=== PATIENT | female | born 1945 | race Caucasian/White ===

== ENCOUNTER → 2017-03-25 | Outpatient (CLI) | payer OTHER, MEDICARE ==
[~2017-03-25] MED LIST: ACET-1311 PO; AMPH20CA3 PO; BUSP15TA70 PO; CALC500C3; CHOL100010 PO; METO50TA16 PO; MULTCHW PO; NAPR1TAB9 PO; OXYC-88 PO; ZNTT/150 PO
--- NOTE | 2017-03-25 13:54 | MAMMOGRAPHY REPORT ---
BILATERAL DIGITAL DIAGNOSTIC MAMMOGRAM TOMOSYNTHESIS WITH CAD AND TARGETED RIGHT ULTRASOUND: 03/25/2017 CLINICAL HISTORY: History of right breast cancer status post treatment, who presents for annual bilat eral mammography. She reports that she feels intermittent sensitivity/discomfort at the site of her seroma in the right breast. TECHNIQUE: Breast tomosynthesis in addition to standard 2D mammography was performed. Current study was also evaluated with a Computer Aided Detection (CAD) system. Bilateral CC and MLO 2-D and tomosy nthesis images were obtained. COMPARISON: Comparison is made to exams dated: 03/11/2015 ultrasound, 03/11/2015 mammogram, 03/08/2014 mammogram, 02/27/2013 mammogram, 02/25/2012 mammogram, and 02/17/2011 mammogram - [facility] enter. BREAST COMPOSITION: There are scattered areas of fibroglandular density in both breasts. FINDINGS: There are no suspicious masses, calcifications, or areas of nonsurgical architectural disto rtion noted in either breast. There has been no significant interval change compared to prior exams. There are stable post surgical changes in the right central breast from prior lumpectomy, including surgical clips, architectural distortion, coarse benign dystrophic calcifications, and an oval 2.8 c m benign-appearing mass at the lumpectomy bed which is stable dating back to the 2007 exam and is con sistent with a benign chronic postoperative hematoma/seroma. A linear scar marker denotes a scar on the right breast. An asymmetry seen within the left superior breast middle depth on the MLO view is stable dating back to at least the 2008 exam. Other scattered bilateral benign-appearing calcificati ons are not significantly changed. Targeted ultrasound was performed of the area of the intermittent sensitivity pointed out by the sunita ent, in the right breast at her surgical bed at approximately 7 to 8:00, 2 cm from the nipple. Again noted is an oval mixed echogenicity hypoechoic mass which measures 2.3 x 1.6 x 1.7 cm. This corresp onds with the stable mammographic mass which is unchanged dating back to 2007, and is consistent with a chronic postoperative hematoma/seroma. No suspicious masses or other suspicious sonographic abnor malities are evident. IMPRESSION: ACR BI-RADS CATEGORY 2: BENIGN, TARGETED ULTRASOUND ACR BI-RADS CATEGORY 2: BENIGN There is no mammographic evidence of malignancy in either breast. No suspicious findings seen in the region of intermittent sensitivity at the surgical bed in her right breast. The 2.8 cm chronic post operative hematoma/seroma at the surgical bed is unchanged. There is no mammographic or targeted sonographic evidence of malignancy. A 1 year screening mammogram is recommended. The patient has been verbally notified of the results. Approximately 10% of breast cancers are not detected with mammography. A negative mammographic report should not delay biopsy if a clinically suggestive mass is present. Pushpa Perera M.D. ah/:03/25/2017 12:05:30 Associate Professor Of Automation: Mackenzie BUENROSTRO(Lora)(Elina), [facility] letter sent: Normal 1/2 BI-RADS Code: ACR BI-RADS Category 2: Benign Ultrasound BI-RADS: ACR BI-RADS Category 2: Benign
== END | disposition home or self-care (01) ==
LOC: C.MAMM 11:10
PROVIDERS: ATTEND Family Medicine
DX: Z12.31 Encounter for screening mammogram for malignant neoplasm of breast (principal); Z85.3 Personal history of malignant neoplasm of breast; L76.82 Other postprocedural complications of skin and subcutaneous tissue

== ENCOUNTER 2024-05-15 14:06 | Inpatient (IN) ==
[2024-05-15] MEDS: METOPROLOL TARTRATE 1 MG/ML VIAL IV STA (14:51)
[2024-05-15] MEDS: METOPROLOL TARTRATE 1 MG/ML VIAL IV PRN (15:03)
--- NOTE | 2024-05-15 15:03 | Emergency Department Note ---
Impression & Plan Atrial fibrillation with rapid ventricular response, Acute dyspnea, Acute exacerbation of CHF (congestive heart failure), Pulmonary edema, Anemia ED Provider Note HISTORY OF PRESENT ILLNESS: Patient is an 78-year-old female presenting with bilateral lower extremity edema and shortness of breath. Patient reports that she has had a chronic cough for the last 3 months. She states that she is on Eliquis normally for history of A- fib. However, she states that she stopped taking her Eliquis 2 to 3 weeks ago secondary to "thinking I had an ulcer as I had some epigastric pain at nighttime." She denies any DVT or PE history. Denies any history of cardiac stents. She states that her bilateral lower extremities have been getting progressively more swollen over the last 2 to 3 weeks. She denies any chest pain. Reports feeling short of breath with exertion and with laying flat. She is not on any Lasix or diuretic medications. She was at [facility] today and they referred her to the emergency department given her symptoms. ROS: as above PHYSICAL EXAM: Constitutional: Patient appears in no acute distress. HENT: Head: Normocephalic and atraumatic. Eyes: EOMI, PERRL Mouth/Throat: Mucous membranes moist. Neck: Trachea midline. Neck supple. Cardiovascular: Tachycardic with irregularly irregular rhythm. No murmurs, rubs or gallops. Intact distal pulses. Pulmonary/Chest: No respiratory distress. Breath sounds clear and equal bilaterally. No wheezes or rales. Abdominal: Abdomen soft, no tenderness, rebound or guarding. Rectal: Chaperoned by nursing staff. No palpable masses or hemorrhoids. No jerod melena or blood on glove. Hemoccult negative. Musculoskeletal: No tenderness or deformity noted. +3 pitting edema of bilateral lower extremities extending to mid-thigh Skin: Warm and dry. No rash, erythema, pallor or cyanosis Psychiatric: Appropriate mood and affect for situation. Neurological: Alert and keenly responsive. CN II-XII grossly intact, moving all extremities equally and fully. MDM: - Vitals signs showed hypertension and tachycardia. - History obtained via patient. History as above. - Chronic conditions affecting care: aortic stenosis; anemia; Afib - Differential diagnoses include, but are not limited to: ACS; PE; pneumonia; CHF exacerbation; viral syndrome; electrolyte abnormality - Order placed for continuous cardiac monitoring. At this time, monitor showed rate of 122 bpm with irregular rhythm, per my interpretation. - External medical records reviewed. Echocardiogram dated 11/09/2023 was reviewed. Patient had an EF of 60 to 64% at that time. - EKG interpreted by myself showed atrial fibrillation. Rate tachycardic at 140 bpm. QT 286. No acute ischemic changes. - Given patient's obvious fluid overload on physical examination, she was given 5 mg of IV Lopressor for some rate control. Her heart rate went from the 150s to the 120s. As needed 5 mg Lopressor was ordered for further rate control. - Laboratory workup interpreted by myself showed normal WBC; anemia (Hgb 7.9); normal electrolytes; elevated total bilirubin (2.5); normal AST/ALT; elevated BNP (350); normal troponin - CXR shows pulmonary edema and bilateral pleural effusions, per my interpretation. - Patient given an additional 5 mg IV lopressor with improvement in HR down to low 100s. - Given 80 mg IV lasix for diuresis. - CT PE negative for PE, but noted to have large bilateral pleural effusions - Discussion was had with behavioral health case manager about patient's case and need for admission - Hospitalist consulted for admission - Patient admitted to [facility] for further evaluation and management. I have personally spent 42 minutes of critical care time in the direct management of this patient. This includes bedside care, interpretation of diagnostic studies, and testing, discussion with consultants, patient, and family members, and other required patient management activities. This 42 minutes is in excess of all separately billable procedures. ASSESSMENT AND PLAN: Diagnosis: acute dyspnea; Afib with RVR; acute exacerbation of CHF; anemia; pulmonary edema Plan: Admit Past Med/Surg History Problem List (Updated 05/15/24 @ 16:54 by Kika Toney MD) Anemia (Acute) Pulmonary edema (Acute) Acute exacerbation of CHF (congestive heart failure) (Acute) Acute dyspnea (Acute) Atrial fibrillation with rapid ventricular response (Acute) Atrial fibrillation Mitral regurgitation Anemia ADD (attention deficit disorder) Lumbar radiculopathy (Chronic) Lumbar stenosis with neurogenic claudication Aortic regurgitation Aortic stenosis B12 deficiency Vitamin D deficiency Depression with anxiety Fatigue Dyspnea Idiopathic progressive polyneuropathy (Acute) Chronic low back pain (Acute) Medical History Mitral regurgitation Aortic stenosis Anemia ADD (attention deficit disorder) Lumbar radiculopathy Lumbar stenosis with neurogenic claudication Breast cancer (~05/2003) Surgical History (Updated 05/25/19 @ 14:31 by Nancy Michel) Status post tubal ligation S/P tonsillectomy S/P mastectomy Status post repair of nerve Family History (Updated 05/25/19 @ 14:22 by Nancy Michel) Mother Dementia Father Parkinson disease Social History (Updated 05/25/19 @ 14:30 by Nancy Michel) Smoking Status: Never smoker Hx Alcohol Use: Yes Preferred Language: Ghanaian Feels Safe at Home: No Allergies Allergies Allergy/AdvReac Type Severity Reaction Status Date / Time nickel Allergy Intermediate contact Verified 05/15/24 15:31 dermatitis adhesive Allergy Mild skin Verified 05/15/24 15:31 irritation alendronate sodium AdvReac Intermediate myalgias Verified 05/15/24 15:31 Home Meds Home Medications Medication Instructions Recorded Confirmed cholecalciferol (vitamin D3) 25 1,000 unit PO DAILY 10/03/19 05/15/24 mcg (1,000 unit) tablet metoprolol tartrate 100 mg tablet 100 mg PO BID 02/05/21 05/15/24 calcium carbonate (Tums) 200 mg PO BID PRN 03/30/22 05/15/24 HEARTBURN/INDIGESTION denosumab 60 mg/mL subcutaneous 60 mg subcut Q6MO 01/13/24 05/15/24 syringe (Prolia) acetaminophen 500 mg tablet 500 - 1,000 mg PO Q6H PRN Pain 05/15/24 05/15/24 (Tylenol Extra Strength) albuterol sulfate 90 mcg/actuation 2 puff inhalation Q4H PRN 05/15/24 05/15/24 aerosol inhaler WHEEZING, COUGH, SHORT OF BREATH alpha lipoic acid 600 mg capsule 600 mg PO DAILY 05/15/24 05/15/24 duloxetine 20 mg capsule,delayed 20 mg PO QAM 05/15/24 05/15/24 release [id number] tablet 1 tab PO DAILY 05/15/24 05/15/24 Previous Rx's Medication Instructions Recorded apixaban 5 mg tablet (Eliquis) 5 mg PO BID #60 tabs 01/13/24 Results & Data (ED) Vital Signs Vital Signs - 24 hr 05/15/24 14:10 05/15/24 14:39 05/15/24 14:51 Temperature 36.5 C Temperature Source Temporal Artery Scan Pulse Rate 148 H 155 H 144 H Pulse Rate from SpO2 Sensor Respiratory Rate 18 Respiratory Effort / Characteristics Non-Labored Spontaneous Respiratory Depth Normal Blood Pressure 131/84 148/119 H Blood Pressure Mean 99 Blood Pressure Position Sitting Pulse Oximetry 95 Oxygen Delivery Method Room Air Sepsis Recent Fever Within 48 Hours No Sepsis New/Unexplained Change in Mental Status No Sepsis Action Taken by Nursing No Action Required 05/15/24 14:53 05/15/24 14:57 05/15/24 15:03 Temperature Temperature Source Pulse Rate 129 H 138 H 114 H Pulse Rate from SpO2 Sensor Respiratory Rate 18 20 Respiratory Effort / Characteristics Respiratory Depth Blood Pressure 135/104 H 135/104 H 126/107 H Blood Pressure Mean 109 114 Blood Pressure Position Pulse Oximetry 96 Oxygen Delivery Method Sepsis Recent Fever Within 48 Hours Sepsis New/Unexplained Change in Mental Status Sepsis Action Taken by Nursing 05/15/24 15:03 05/15/24 15:18 05/15/24 15:21 Temperature Temperature Source Pulse Rate 129 H 102 H 106 H Pulse Rate from SpO2 Sensor Respiratory Rate 20 Respiratory Effort / Characteristics Respiratory Depth Blood Pressure 126/107 H 120/86 120/86 Blood Pressure Mean 113 Blood Pressure Position Pulse Oximetry Oxygen Delivery Method Sepsis Recent Fever Within 48 Hours Sepsis New/Unexplained Change in Mental Status Sepsis Action Taken by Nursing 05/15/24 15:21 05/15/24 16:09 05/15/24 16:15 Temperature Temperature Source Pulse Rate 102 H 123 H 114 H Pulse Rate from SpO2 Sensor 112 H 120 H 120 H Respiratory Rate 24 24 30 H Respiratory Effort / Characteristics Respiratory Depth Blood Pressure 120/86 122/76 113/82 Blood Pressure Mean 97 91 92 Blood Pressure Position Pulse Oximetry 97 98 97 Oxygen Delivery Method Room Air Sepsis Recent Fever Within 48 Hours Sepsis New/Unexplained Change in Mental Status Sepsis Action Taken by Nursing 05/15/24 16:30 Temperature Temperature Source Pulse Rate 101 H Pulse Rate from SpO2 Sensor 109 H Respiratory Rate 26 H Respiratory Effort / Characteristics Respiratory Depth Blood Pressure 101/81 Blood Pressure Mean 87 Blood Pressure Position Pulse Oximetry 96 Oxygen Delivery Method Room Air Sepsis Recent Fever Within 48 Hours Sepsis New/Unexplained Change in Mental Status Sepsis Action Taken by Nursing Laboratory Data 05/15/24 14:33 05/15/24 14:33 Lab Results 05/15/24 Range/Units 14:33 WBC 9.48 (4.8-10.8) K/ul RBC 2.98 L (4.20-5.40) M/uL Hgb 7.9 L (12.0-16.0) g/dl Hct 24.9 L (37.0-47.0) % MCV 83.6 (80.0-100.0) fL MCH 26.5 (25.0-34.0) pg MCHC 31.7 L (32.0-36.0) g/dL RDW Coeff of Karen 30.9 H (11.5-14.5) % Plt Count 354 (130-400) K/uL Absolute Nucleated RBC 0.73 H (0.00-0.12) K/uL Nucleated RBC % (auto) 7.7 % Neutrophils % (Manual) 71 % Lymphocytes % (Manual) 12 % Monocytes % (Manual) 5 % Eosinophils % (Manual) 5 % Basophils % (Manual) 1 % Myelocytes % (Man) 1 % Blast Cells % (Manual) 5 % Neutrophils # (Manual) 6.73 H (1.40-6.50) K/uL Total Absolute Neuts 6.73 H (1.4-6.5) K/uL Lymphocytes # (Manual) 1.14 L (1.2-3.4) K/uL Total Abs Lymphocytes 1.14 L (1.2-3.4) K/uL Monocytes # (Manual) 0.47 (0.11-0.59) K/uL Eosinophils # (Manual) 0.47 (0-0.50) K/uL Basophils # (Manual) 0.09 (0-0.2) K/uL Myelocytes # (Manual) 0.09 H (0-0) K/uL Blast Cells # (Man) 0.47 H (0-0) K/uL Hyposegmented Neuts 2+ Hypogranular Neuts 2+ Hypochromasia Present Poikilocytosis Present Anisocytosis Present Pappenheimer Bodies Occasional Ovalocytes 1+ Acanthocytes (Spur) 2+ PT 16.0 H (9.0-12.0) Seconds INR 1.5 H (0.9-1.1) APTT 30 (21-31) Seconds PTT Ratio 1.1 Sodium 133 L (136-145) mmol/L Potassium 3.7 (3.5-5.1) mmol/L Chloride 98 (98-107) mmol/L Carbon Dioxide 26 (21-32) mmol/L Anion Gap 9 (3-11) BUN 21 (6-23) mg/dl Creatinine 0.94 (0.6-1.2) mg/dl Est Cr Clr Drug Dosing Not Reportable Est GFR ( Amer) 66.4 ml/min Est GFR (Non-Af Amer) 57.3 ml/min BUN/Creatinine Ratio 22.3 H (10-20) Glucose 146 H (70-99(Fasting)) mg/dl Calcium 8.6 (8.6-10.3) mg/dl Magnesium 2.0 (1.7-2.4) mg/dl Total Bilirubin 2.5 H (0.2-1.0) mg/dl AST 23 (13-39) U/L ALT 17 (7-52) U/L Alkaline Phosphatase 106 H (34-104) U/L Troponin I High Sens 6.5 (0-14) pg/ml B-Natriuretic Peptide 350 H (0-100) pg/ml Total Protein 6.2 (6.0-8.3) gm/dl Albumin 3.3 L (3.4-5.0) gm/dl Globulin 2.9 (2.5-4.0) gm/dl Albumin/Globulin Ratio 1.1 (0.9-2) Administered Medications Metoprolol Tartrate (Metoprolol Tartrate 1 Mg/Ml Vial) 5 mg IV Q5M PRN PRN Reason: Tachycardia Stop: 06/14/24 14:52 Last Admin: 05/15/24 15:03 Dose: 5 mg Documented By: [facility] [place]continued Medications Furosemide (Furosemide 40 Mg/4 Ml Vial) 80 mg IV ONE ONE Stop: 05/15/24 15:02 Last Admin: 05/15/24 15:17 Dose: 80 mg Documented By: [facility] [place] Ioversol (Optiray 320 125ml) 118 ml IV ONCE ONE Stop: 05/15/24 15:53 Last Admin: 05/15/24 15:52 Dose: 118 ml Documented By: [facility] Metoprolol Tartrate (Metoprolol Tartrate 1 Mg/Ml Vial) 5 mg IV NOW STA Stop: 05/15/24 14:45 Last Admin: 05/15/24 14:51 Dose: 5 mg Documented By: [facility] Imaging Data Radiologist's Impression: Chest X-Ray 05/15/24 14:14 XR chest 1V portable HISTORY: Chest pain, nonspecific COMPARISON: None. FINDINGS: The heart is enlarged. No pneumothorax. Moderate bilateral pleural effusions most pronounced on the left. There are patchy bibasilar densities. There is right greater than left perihilar interstitial/vascular thickening. This suggests mild asymmetric pulmonary edema. No acute fractures. IMPRESSION: 1. Cardiomegaly with mild interstitial pulmonary edema and moderate bilateral pleural effusions. 2. Patchy bibasilar densities are nonspecific but may represent atelectasis from the pleural effusions. ACT 112: Negative or not required by law. Electronically signed by: Elvis Link M.D. 05/15/2024 4:10 PM Chest CTA 05/15/24 14:53 CT angio chest PE protocol CLINICAL HISTORY: PE; tachycardia and SOB, off anticoag for 1 week TECHNIQUE: Multidetector row helical CT of the chest was performed with angiographic protocol. Coronal and sagittal reformations were obtained. Coronal and sagittal MIPS were obtained from the axial data set and were submitted for review. Automated dose lowering techniques and/or adjustment according to patient size were utilized for this exam. CT DOSE: 536.83 mGy.cm Comparison: Comparison is made to CT chest 12/13/2010 FINDINGS: Lungs and pleura: Large bilateral pleural effusions are seen with underlying atelectasis. Heart and pericardium: Cardiomegaly is seen with biatrial enlargement. Vessels: No evidence of pulmonary embolism. Mediastinum and nalini: Subcentimeter lymph nodes are seen. Chest wall and lower neck: Postsurgical changes are seen in the right breast. Abdomen: Unremarkable. Bones: Degenerative changes in the thoracic spine. IMPRESSION: 1. No pulmonary embolus. 2. Large bilateral pleural effusions. ACT 112: Negative or not required by law. Electronically signed by: Travis Tinsley M.D. 05/15/2024 4:25 PM Discharge Plan Visit Data Chief Complaint: Tachycardia Stated Complaint: FA[facility] HE[facility] ED Provider: Kika Toney Discharge Problem: Atrial fibrillation with rapid ventricular response, Acute dyspnea, Acute exacerbation of CHF (congestive heart failure), Pulmonary edema, Anemia Forms Stand Alone Forms: My [facility] Prescriptions Prescriptions: No Action cholecalciferol (vitamin D3) 25 mcg (1,000 unit) tablet 1,000 unit PO DAILY Rx Instructions: PER PT "STOPPED ALL MEDS ABOUT 2 WKS AGO". 05/15/24 metoprolol tartrate 100 mg tablet 100 mg PO BID Rx Instructions: PER PT "STOPPED ALL MEDS ABOUT 2 WKS AGO". 05/15/24 calcium carbonate [Tums] 200 mg calcium (500 mg) tablet,chewable 200 mg PO BID PRN (Reason: HEARTBURN/INDIGESTION) Rx Instructions: PER PT "STOPPED ALL MEDS ABOUT 2 WKS AGO". 05/15/24 Prolia 60 mg/mL syringe 60 mg subcut Q6MO Rx Instructions: PER PT "ABOUT A MONTH AGO".05/15/24 Eliquis 5 mg tablet 5 mg PO BID Qty: 60 5RF Rx Instructions: PER PT "STOPPED ALL MEDS ABOUT 2 WKS AGO". 05/15/24 acetaminophen [Tylenol Extra Strength] 500 mg Tablet 500 - 1,000 mg PO Q6H PRN (Reason: Pain) Rx Instructions: PER PT "STOPPED ALL MEDS ABOUT 2 WKS AGO". 05/15/24 albuterol sulfate 90 mcg/actuation Hfa Aerosol Inhaler 2 puff INHALATION Q4H PRN (Reason: WHEEZING, COUGH, SHORT OF BREATH) Rx Instructions: PER PT "STOPPED ALL MEDS ABOUT 2 WKS AGO". 05/15/24 Centrum Silver Tablet 1 tab PO DAILY Rx Instructions: PER PT "STOPPED ALL MEDS ABOUT 2 WKS AGO". 05/15/24 duloxetine 20 mg Capsule,Delayed Release(Dr/Ec) 20 mg PO QAM Rx Instructions: PER PT "STOPPED ALL MEDS ABOUT 2 WKS AGO". 05/15/24 alpha lipoic acid 600 mg Capsule 600 mg PO DAILY Rx Instructions: PER PT "STOPPED ALL MEDS ABOUT 2 WKS AGO". 05/15/24 Referrals Referrals: Abelardo Copeland MD [Primary Care Provider] -
[2024-05-15 15:12] LABS: Alanine Aminotransferase 17 U/L (7-52); Albumin Globulin Ratio 1.1 (0.9-2); Albumin Level 3.3 gm/dl (3.4-5.0); Alkaline Phosphatase 106 U/L (34-104); Anion Gap 9 (3-11); Aspartate Aminotransferase 23 U/L (13-39); BUN Creatinine Ratio 22.3 (10-20); Bilirubin,Total 2.5 mg/dl (0.2-1.0); Blood Urea Nitrogen 21 mg/dl (6-23); Calcium 8.6 mg/dl (8.6-10.3); Carbon Dioxide 26 mmol/L (21-32); Chloride 98 mmol/L (98-107); Est GFR (African American) 66.4 ml/min; Est GFR (Non-African American) 57.3 ml/min; Globulin 2.9 gm/dl (2.5-4.0); Glucose 146 mg/dl (70-99(Fasting)); Potassium 3.7 mmol/L (3.5-5.1); Sodium 133 mmol/L (136-145); Total Protein 6.2 gm/dl (6.0-8.3)
[2024-05-15 15:17] LABS: Troponin I High Sensitivity 6.5 pg/ml (0-14)
[2024-05-15] MEDS: FUROSEMIDE 40 MG/4 ML VIAL IV ONE (15:17)
[2024-05-15 15:25] LABS: INR 1.5 (0.9-1.1); Partial Thromboplastin Ratio 1.1; Partial Thromboplastin Time 30 Seconds (21-31)
[2024-05-15 15:33] LABS: Hematocrit (blood only) 24.9 % (37.0-47.0); Hemoglobin 7.9 g/dl (12.0-16.0); Mean Corpuscular Hemoglobin 26.5 pg (25.0-34.0); Mean Corpuscular Hgb Conc 31.7 g/dL (32.0-36.0); Mean Corpuscular Volume 83.6 fL (80.0-100.0); Nucleated RBC # (auto) 0.73 K/uL (0.00-0.12); Nucleated RBC % (auto) 7.7 %; Platelet Count 354 K/uL (130-400); RDW Coefficient of Variation 30.9 % (11.5-14.5); Red Blood Count 2.98 M/uL (4.20-5.40); White Blood Count 9.48 K/ul (4.8-10.8)
[2024-05-15] MEDS: OPTIRAY 320 125ml IV ONE (15:52)
[2024-05-15 16:04] LABS: ALC (manual) 1.14 K/uL (1.2-3.4); ANC (manual) 6.73 K/uL (1.4-6.5); Acanthocytes 2+; Anisocytosis Present; Basophils # (manual) 0.09 K/uL (0-0.2); Basophils % (manual) 1 %; Blast # (manual) 0.47 K/uL (0-0); Blast Cells % (manual) 5 %; Eosinophils # (manual) 0.47 K/uL (0-0.50); Eosinophils % (manual) 5 %; Hypochromasia Present; Hypogranular Neutrophils 2+; Lymphocytes # (manual) 1.14 K/uL (1.2-3.4); Lymphocytes % (manual) 12 %; Monocytes # (manual) 0.47 K/uL (0.11-0.59); Monocytes % (manual) 5 %; Myelocytes # (manual) 0.09 K/uL (0-0); Myelocytes % (manual) 1 %; Neutrophils # (manual) 6.73 K/uL (1.40-6.50); Neutrophils % (manual) 71 %; Ovalocytes 1+; Pappenheimer Bodies Occasional; Poikilocytosis Present
--- NOTE | 2024-05-15 16:11 | XRay Report ---
XR chest 1V portable HISTORY: Chest pain, nonspecific COMPARISON: None. FINDINGS: The heart is enlarged. No pneumothorax. Moderate bilateral pleural effusions most pronounce d on the left. There are patchy bibasilar densities. There is right greater than left perihilar inter stitial/vascular thickening. This suggests mild asymmetric pulmonary edema. No acute fractures. IMPRESSION: 1. Cardiomegaly with mild interstitial pulmonary edema and moderate bilateral pleural effusions. 2. Patchy bibasilar densities are nonspecific but may represent atelectasis from the pleural effusion s. ACT 112: Negative or not required by law. Electronically signed by: Elvis Link M.D. 05/15/2024 4:10 PM
--- NOTE | 2024-05-15 16:26 | CT Scan Report ---
CT angio chest PE protocol CLINICAL HISTORY: PE; tachycardia and SOB, off anticoag for 1 week TECHNIQUE: Multidetector row helical CT of the chest was performed with angiographic protocol. Alanis l and sagittal reformations were obtained. Coronal and sagittal MIPS were obtained from the axial alba a set and were submitted for review. Automated dose lowering techniques and/or adjustment according to patient size were utilized for this exam. CT DOSE: 536.83 mGy.cm Comparison: Comparison is made to CT chest 12/13/2010 FINDINGS: Lungs and pleura: Large bilateral pleural effusions are seen with underlying atelectasis. Heart and pericardium: Cardiomegaly is seen with biatrial enlargement. Vessels: No evidence of pulmonary embolism. Mediastinum and nalini: Subcentimeter lymph nodes are seen. Chest wall and lower neck: Postsurgical changes are seen in the right breast. Abdomen: Unremarkable. Bones: Degenerative changes in the thoracic spine. IMPRESSION: 1. No pulmonary embolus. 2. Large bilateral pleural effusions. ACT 112: Negative or not required by law. Electronically signed by: Travis Tinsley M.D. 05/15/2024 4:25 PM
--- NOTE | 2024-05-15 16:51 | History & Physical Report ---
Date of Service May 15, 2024 History of Present Illness Primary Care Provider: Abelardo Copeland MD This is an 78 y/o female with 1. Dobutamine stress echo 04/05/2022 [facility]: Negative for ischemia. Resting EF 65 to 69%. Mild aortic stenosis with trace AI. Mild MR. 2. PFTs 11/25/22 [facility]: Normal ventilatory pattern and normal lung volumes per radiology. 3. Echo 11/09/2023 [facility]: Normal LV size, wall motion, systolic function. E F 60-64%. Mild LVH. Moderate (PV 3.2; MG 20; DESMOND 0.9; DI 0.3) with mild AI. Severe MAC. Mild MR. Mild to moderate TR. RVSP 39. Allergies Allergy/AdvReac Type Severity Reaction Status Date / Time nickel Allergy Intermediate contact Verified 05/15/24 15:31 dermatitis adhesive Allergy Mild skin Verified 05/15/24 15:31 irritation alendronate sodium AdvReac Intermediate myalgias Verified 05/15/24 15:31 Home Medications Medication Instructions Recorded Confirmed Type cholecalciferol (vitamin D3) 25 1,000 unit PO DAILY 10/03/19 05/15/24 History mcg (1,000 unit) tablet metoprolol tartrate 100 mg tablet 100 mg PO BID 02/05/21 05/15/24 History calcium carbonate (Tums) 200 mg PO BID PRN 03/30/22 05/15/24 History HEARTBURN/INDIGESTION apixaban 5 mg tablet (Eliquis) 5 mg PO BID #60 tabs 01/13/24 05/15/24 Rx denosumab 60 mg/mL subcutaneous 60 mg subcut Q6MO 01/13/24 05/15/24 History syringe (Prolia) acetaminophen 500 mg tablet 500 - 1,000 mg PO Q6H PRN Pain 05/15/24 05/15/24 History (Tylenol Extra Strength) albuterol sulfate 90 mcg/actuation 2 puff inhalation Q4H PRN 05/15/24 05/15/24 History aerosol inhaler WHEEZING, COUGH, SHORT OF BREATH alpha lipoic acid 600 mg capsule 600 mg PO DAILY 05/15/24 05/15/24 History duloxetine 20 mg capsule,delayed 20 mg PO QAM 05/15/24 05/15/24 History release fkawmrbxubqn-jozeblic-rfwrqp tablet 1 tab PO DAILY 05/15/24 05/15/24 History Past Med/Surg History Problem List Atrial fibrillation Mitral regurgitation Anemia ADD (attention deficit disorder) Lumbar radiculopathy (Chronic) Lumbar stenosis with neurogenic claudication Aortic regurgitation Aortic stenosis B12 deficiency Vitamin D deficiency Depression with anxiety Fatigue Dyspnea Idiopathic progressive polyneuropathy (Acute) Chronic low back pain (Acute) Medical History Mitral regurgitation Aortic stenosis Anemia ADD (attention deficit disorder) Lumbar radiculopathy Lumbar stenosis with neurogenic claudication Breast cancer (~05/2003) Surgical History (Updated 05/25/19 @ 14:31 by Nancy Michel) Status post tubal ligation S/P tonsillectomy S/P mastectomy Status post repair of nerve Family History (Updated 05/25/19 @ 14:22 by Nancy Michel) Mother Dementia Father Parkinson disease Social History (Updated 05/25/19 @ 14:30 by Nancy Michel) Smoking Status: Never smoker Hx Alcohol Use: Yes Preferred Language: Filipino Feels Safe at Home: No Results & Data Results & Data Vital Signs (Past 12 Hours) Vital Signs Temp Pulse Resp BP Pulse Ox O2 Del Method 05/15/24 16:30 101 H 26 H 101/81 96 Room Air 05/15/24 16:15 114 H 30 H 113/82 97 Room Air 05/15/24 16:09 123 H 24 122/76 98 05/15/24 15:21 102 H 24 120/86 97 05/15/24 15:21 106 H 120/86 05/15/24 15:18 102 H 120/86 05/15/24 15:03 129 H 20 126/107 H 05/15/24 15:03 114 H 126/107 H 05/15/24 14:57 138 H 20 135/104 H 05/15/24 14:53 129 H 18 135/104 H 96 05/15/24 14:51 144 H 148/119 H 05/15/24 14:39 155 H 05/15/24 14:10 36.5 C 148 H 18 131/84 95 Room Air Laboratory Results Lab Results 07/30/24 Range/Units 14:33 WBC 9.48 (4.8-10.8) K/ul RBC 2.98 L (4.20-5.40) M/uL Hgb 7.9 L (12.0-16.0) g/dl Hct 24.9 L (37.0-47.0) % MCV 83.6 (80.0-100.0) fL MCH 26.5 (25.0-34.0) pg MCHC 31.7 L (32.0-36.0) g/dL RDW Coeff of Karen 30.9 H (11.5-14.5) % Plt Count 354 (130-400) K/uL Absolute Nucleated RBC 0.73 H (0.00-0.12) K/uL Nucleated RBC % (auto) 7.7 % Neutrophils % (Manual) 71 % Lymphocytes % (Manual) 12 % Monocytes % (Manual) 5 % Eosinophils % (Manual) 5 % Basophils % (Manual) 1 % Myelocytes % (Man) 1 % Blast Cells % (Manual) 5 % Neutrophils # (Manual) 6.73 H (1.40-6.50) K/uL Total Absolute Neuts 6.73 H (1.4-6.5) K/uL Lymphocytes # (Manual) 1.14 L (1.2-3.4) K/uL Total Abs Lymphocytes 1.14 L (1.2-3.4) K/uL Monocytes # (Manual) 0.47 (0.11-0.59) K/uL Eosinophils # (Manual) 0.47 (0-0.50) K/uL Basophils # (Manual) 0.09 (0-0.2) K/uL Myelocytes # (Manual) 0.09 H (0-0) K/uL Blast Cells # (Man) 0.47 H (0-0) K/uL Hyposegmented Neuts 2+ Hypogranular Neuts 2+ Hypochromasia Present Poikilocytosis Present Anisocytosis Present Pappenheimer Bodies Occasional Ovalocytes 1+ Acanthocytes (Spur) 2+ PT 16.0 H (9.0-12.0) Seconds INR 1.5 H (0.9-1.1) APTT 30 (21-31) Seconds PTT Ratio 1.1 Sodium 133 L (136-145) mmol/L Potassium 3.7 (3.5-5.1) mmol/L Chloride 98 (98-107) mmol/L Carbon Dioxide 26 (21-32) mmol/L Anion Gap 9 (3-11) BUN 21 (6-23) mg/dl Creatinine 0.94 (0.6-1.2) mg/dl Est Cr Clr Drug Dosing Not Reportable Est GFR ( Amer) 66.4 ml/min Est GFR (Non-Af Amer) 57.3 ml/min BUN/Creatinine Ratio 22.3 H (10-20) Glucose 146 H (70-99(Fasting)) mg/dl Calcium 8.6 (8.6-10.3) mg/dl Magnesium 2.0 (1.7-2.4) mg/dl Total Bilirubin 2.5 H (0.2-1.0) mg/dl AST 23 (13-39) U/L ALT 17 (7-52) U/L Alkaline Phosphatase 106 H (34-104) U/L Troponin I High Sens 6.5 (0-14) pg/ml B-Natriuretic Peptide 350 H (0-100) pg/ml Total Protein 6.2 (6.0-8.3) gm/dl Albumin 3.3 L (3.4-5.0) gm/dl Globulin 2.9 (2.5-4.0) gm/dl Albumin/Globulin Ratio 1.1 (0.9-2) Diagnostic Findings Chest X-Ray 05/15/24 14:14 XR chest 1V portable HISTORY: Chest pain, nonspecific COMPARISON: None. FINDINGS: The heart is enlarged. No pneumothorax. Moderate bilateral pleural effusions most pronounced on the left. There are patchy bibasilar densities. There is right greater than left perihilar interstitial/vascular thickening. This suggests mild asymmetric pulmonary edema. No acute fractures. IMPRESSION: 1. Cardiomegaly with mild interstitial pulmonary edema and moderate bilateral pleural effusions. 2. Patchy bibasilar densities are nonspecific but may represent atelectasis from the pleural effusions. ACT 112: Negative or not required by law. Electronically signed by: Elvis Link M.D. 05/15/2024 4:10 PM Chest CTA 05/15/24 14:53 CT angio chest PE protocol CLINICAL HISTORY: PE; tachycardia and SOB, off anticoag for 1 week TECHNIQUE: Multidetector row helical CT of the chest was performed with angiographic protocol. Coronal and sagittal reformations were obtained. Coronal and sagittal MIPS were obtained from the axial data set and were submitted for review. Automated dose lowering techniques and/or adjustment according to patient size were utilized for this exam. CT DOSE: 536.83 mGy.cm Comparison: Comparison is made to CT chest 12/13/2010 FINDINGS: Lungs and pleura: Large bilateral pleural effusions are seen with underlying at electasis. Heart and pericardium: Cardiomegaly is seen with biatrial enlargement. Vessels: No evidence of pulmonary embolism. Mediastinum and nalini: Subcentimeter lymph nodes are seen. Chest wall and lower neck: Postsurgical changes are seen in the right breast. Abdomen: Unremarkable. Bones: Degenerative changes in the thoracic spine. IMPRESSION: 1. No pulmonary embolus. 2. Large bilateral pleural effusions. ACT 112: Negative or not required by law. Electronically signed by: Travis Tinsley M.D. 05/15/2024 4:25 PM Medications Administered Metoprolol Tartrate (Metoprolol Tartrate 1 Mg/Ml Vial) 5 mg IV Q5M PRN PRN Reason: Tachycardia Stop: 06/14/24 14:52 Last Admin: 05/15/24 15:03 Dose: 5 mg Documented By: ILENE Discontinued Medications Furosemide (Furosemide 40 Mg/4 Ml Vial) 80 mg IV ONE ONE Stop: 05/15/24 15:02 Last Admin: 05/15/24 15:17 Dose: 80 mg Documented By: ILENE Ioversol (Optiray 320 125ml) 118 ml IV ONCE ONE Stop: 05/15/24 15:53 Last Admin: 05/15/24 15:52 Dose: 118 ml Documented By: [facility] Metoprolol Tartrate (Metoprolol Tartrate 1 Mg/Ml Vial) 5 mg IV NOW STA Stop: 05/15/24 14:45 Last Admin: 05/15/24 14:51 Dose: 5 mg Documented By: HS
--- NOTE | 2024-05-15 17:18 | History & Physical Report ---
Date of Service May 15, 2024 Assessment & Plan (1) Atrial fibrillation with rapid ventricular response: Plan: Note: pt refused [facility] medical service despite [facility] PCP therefore will be admitted under [facility] Rate somewhat compensatory for anemia but mostly inappropriate due to stopping her metoprolol likely leading to rate related heart failure Given low normal BP (suspect from Lasix in setting of aortic stenosis) will restart her metoprolol slowly, initially at 25mg PO q6h with hold parameters for hypotension (prior dose 100mg PO BID) Holding anticoagulation due to suspected GI bleed (2) Anemia: Plan: Hgb 14.6 [December 2023] -> 7.9 today Repeat H&H with iron studies, B12, folate, retic count, LDH Suspected acute/subacute blood loss given melena described by patient and epigastric pressure (over 3-4 week period) Pantoprazole 80mg IV now then 40mg IV BID NPO after midnight and consult GI Type and screen sent and blood consent signed Transfuse < 7 overnight, consider higher threshold if still symptomatic after heart failure and a. fib RVR treated (3) Acute exacerbation of CHF (congestive heart failure): Plan: Presumably on the basis of a. fib RVR and aortic stenosis. Avoid further Lasix overnight due to drop in BP from 80mg IV presumably due to aortic stenosis, concurrent acute blood loss anemia and main ross carrier driver is her rapid rate. Strict I&Os Daily weight Consult cardiology (4) Aortic stenosis: (5) Left leg swelling: Plan: US venous doppler - would defer anticoagulation irregardless overnight but if acute DVT would consider restarting anticoagulation earlier pending EGD findings Plan VTE Prophylaxis - SCDs Diet - clear liquid, low Na, NPO after midnight Disposition - admit to PCU Admission and Anticipated Discharge Date Admission Date: May 15, 2024 History of Present Illness Chief Complaint: Shortness of breath, fatigue, generalized weakness, leg swelling Primary Care Provider: Abelardo Copeland MD Gail Sofia is an 78 year old female with history atrial fibrillation and gastric ulcer who presents to the ER sent in by PCPs office with increased shortness of breath, rapid atrial fibrillation and edema in bilateral lower extremities. Initial symptoms started 3 months ago with cough. 1 month ago she started feeling fatigued in the afternoon that she had to go to sleep. Reports 10 pounds weight loss until the last week when she is getting the 10 pounds back. Generalized weakness, appetite decreased, increasing shortness of breath on exertion and leg swelling especially over the last 3 weeks. 3 weeks ago she took Advil due to right hip pain (4 pills over 3 days). The right hip pain improved after using a cane. Since then she has also had epigastric pressure (denies pain) with occasional vomiting, without radiation, dysphagia or odynophagia. Associated black tarry stool for the last 3 to 4 weeks. She googled her symptoms and thought that she had a stomach ulcer therefore stopped taking Eliquis 2-3 weeks ago. She also stopped metoprolol around the same time as she felt she was unable to get to the medications in her house. Last EGD and colonoscopy in 2011 - performed by [facility], she reports gastric ulcer was found at this time when she was on significant amounts of NSAIDs. Allergies Allergy/AdvReac Type Severity Reaction Status Date / Time nickel Allergy Intermediate contact Verified 05/15/24 15:31 dermatitis adhesive Allergy Mild skin Verified 05/15/24 15:31 irritation alendronate sodium AdvReac Intermediate myalgias Verified 05/15/24 15:31 Home Medications Medication Instructions Recorded Confirmed Type cholecalciferol (vitamin D3) 25 1,000 unit PO DAILY 10/03/19 05/15/24 History mcg (1,000 unit) tablet metoprolol tartrate 100 mg tablet 100 mg PO BID 02/05/21 05/15/24 History calcium carbonate (Tums) 200 mg PO BID PRN 03/30/22 05/15/24 History HEARTBURN/INDIGESTION apixaban 5 mg tablet (Eliquis) 5 mg PO BID #60 tabs 01/13/24 05/15/24 Rx denosumab 60 mg/mL subcutaneous 60 mg subcut Q6MO 01/13/24 05/15/24 History syringe (Prolia) acetaminophen 500 mg tablet 500 - 1,000 mg PO Q6H PRN Pain 05/15/24 05/15/24 History (Tylenol Extra Strength) albuterol sulfate 90 mcg/actuation 2 puff inhalation Q4H PRN 05/15/24 05/15/24 History aerosol inhaler WHEEZING, COUGH, SHORT OF BREATH alpha lipoic acid 600 mg capsule 600 mg PO DAILY 05/15/24 05/15/24 History duloxetine 20 mg capsule,delayed 20 mg PO QAM 05/15/24 05/15/24 History release afnppmovrnfz-tbqzyfnx-xqkrdw tablet 1 tab PO DAILY 05/15/24 05/15/24 History Past Med/Surg History Problem List (Updated 05/15/24 @ 21:45 by Robert Ramírez MD) Left leg swelling Anemia (Acute) Pulmonary edema (Acute) Acute exacerbation of CHF (congestive heart failure) (Acute) Acute dyspnea (Acute) Atrial fibrillation with rapid ventricular response (Acute) Atrial fibrillation Mitral regurgitation Anemia ADD (attention deficit disorder) Lumbar radiculopathy (Chronic) Lumbar stenosis with neurogenic claudication Aortic regurgitation Aortic stenosis B12 deficiency Vitamin D deficiency Depression with anxiety Fatigue Dyspnea Idiopathic progressive polyneuropathy (Acute) Chronic low back pain (Acute) Medical History Mitral regurgitation Aortic stenosis Anemia ADD (attention deficit disorder) Lumbar radiculopathy Lumbar stenosis with neurogenic claudication Breast cancer (~05/2003) Surgical History (Updated 05/25/19 @ 14:31 by Nancy Michel) Status post tubal ligation S/P tonsillectomy S/P mastectomy Status post repair of nerve Family History (Updated 05/25/19 @ 14:22 by Nancy Michel) Mother Dementia Father Parkinson disease Social History (Updated 05/25/19 @ 14:30 by Nancy Michel) Smoking Status: Never smoker Hx Alcohol Use: Yes Preferred Language: Burundian Feels Safe at Home: No Review of Systems Review of Systems: All systems reviewed & are unremarkable except as noted in HPI & below Physical Exam Constitutional: WD/WN, vitals as above Eyes: PERRL, conjunctivae normal, anicteric sclerae ENMT: external ear and nose normal, oropharynx normal Respiratory: normal respiratory effort, lungs clear to auscultation Cardiovascular: Rate/Rhythm: + tachycardic and + irregularly irregular Heart Sounds: + murmur (systolic) Extremities: normal capillary refill and + pedal edema (2+ left to abdomen 1+ right to knee); no calf tenderness Gastrointestinal (Abdomen): normal bowel sounds, soft, nontender, no hepatosplenomegaly Musculoskeletal: no cyanosis or clubbing, extremities motor strength 5/5 Skin: no rashes, warm and dry Neurologic: moves all extremities and awake; no focal motor deficits and not confused Psychiatric: A+Ox3, euthymic affect Genitourinary: no CVA tenderness Results & Data Results & Data Vital Signs (Past 12 Hours) Vital Signs Temp Pulse Resp BP Pulse Ox O2 Del Method 05/15/24 16:30 101 H 26 H 101/81 96 Room Air 05/15/24 16:15 114 H 30 H 113/82 97 Room Air 05/15/24 16:09 123 H 24 122/76 98 05/15/24 15:21 102 H 24 120/86 97 05/15/24 15:21 106 H 120/86 05/15/24 15:18 102 H 120/86 05/15/24 15:03 129 H 20 126/107 H 05/15/24 15:03 114 H 126/107 H 05/15/24 14:57 138 H 20 135/104 H 05/15/24 14:53 129 H 18 135/104 H 96 05/15/24 14:51 144 H 148/119 H 05/15/24 14:39 155 H 05/15/24 14:10 36.5 C 148 H 18 131/84 95 Room Air Laboratory Results Abnormal lab results 05/15/24 Range/Units 14:33 RBC 2.98 L (4.20-5.40) M/uL Hgb 7.9 L (12.0-16.0) g/dl Hct 24.9 L (37.0-47.0) % MCHC 31.7 L (32.0-36.0) g/dL RDW Coeff of Karen 30.9 H (11.5-14.5) % Absolute Nucleated RBC 0.73 H (0.00-0.12) K/uL Neutrophils # (Manual) 6.73 H (1.40-6.50) K/uL Total Absolute Neuts 6.73 H (1.4-6.5) K/uL Lymphocytes # (Manual) 1.14 L (1.2-3.4) K/uL Total Abs Lymphocytes 1.14 L (1.2-3.4) K/uL Myelocytes # (Manual) 0.09 H (0-0) K/uL Blast Cells # (Man) 0.47 H (0-0) K/uL PT 16.0 H (9.0-12.0) Seconds INR 1.5 H (0.9-1.1) Sodium 133 L (136-145) mmol/L BUN/Creatinine Ratio 22.3 H (10-20) Glucose 146 H (70-99(Fasting)) mg/dl Total Bilirubin 2.5 H (0.2-1.0) mg/dl Alkaline Phosphatase 106 H (34-104) U/L B-Natriuretic Peptide 350 H (0-100) pg/ml Albumin 3.3 L (3.4-5.0) gm/dl Diagnostic Findings XR chest 1V portable HISTORY: Chest pain, nonspecific COMPARISON: None. FINDINGS: The heart is enlarged. No pneumothorax. Moderate bilateral pleural effusions most pronounced on the left. There are patchy bibasilar densities. There is right greater than left perihilar interstitial/vascular thickening. This suggests mild asymmetric pulmonary edema. No acute fractures. IMPRESSION: 1. Cardiomegaly with mild interstitial pulmonary edema and moderate bilateral pleural effusions. 2. Patchy bibasilar densities are nonspecific but may represent atelectasis from the pleural effusions. CT angio chest PE protocol CLINICAL HISTORY: PE; tachycardia and SOB, off anticoag for 1 week TECHNIQUE: Multidetector row helical CT of the chest was performed with angiographic protocol. Coronal and sagittal reformations were obtained. Coronal and sagittal MIPS were obtained from the axial data set and were submitted for review. Automated dose lowering techniques and/or adjustment according to patient size were utilized for this exam. CT DOSE: 536.83 mGy.cm Comparison: Comparison is made to CT chest 12/13/2010 FINDINGS: Lungs and pleura: Large bilateral pleural effusions are seen with underlying atelectasis. Heart and pericardium: Cardiomegaly is seen with biatrial enlargement. Vessels: No evidence of pulmonary embolism. Mediastinum and nalini: Subcentimeter lymph nodes are seen. Chest wall and lower neck: Postsurgical changes are seen in the right breast. Abdomen: Unremarkable. Bones: Degenerative changes in the thoracic spine. IMPRESSION: 1. No pulmonary embolus. 2. Large bilateral pleural effusions. Medications Administered ER Medications Given: Metoprolol 5mg IV x2 Furosemide 80mg IV ECG Rate (beats per minute): 140 Rhythm: atrial fibrillation Findings: + other (non specific T wave abnormality) and + PVC Comparison ECG Date: from (January 13, 2024) Change: the following changes noted (increased rate) Code Status & VTE Plan Code Status Full VTE Prophylaxis Plan VTE Prophylaxis will be ordered: Yes Reason for no VTE drug order: Contraindicated PG Care Time/CCT Total # of Minutes Spent Total Time Spent with Patient: Total time spent is greater than 50% in coordination of care (as documented) at patient's floor/unit and/or counseling patient: Coding Level of Care Code 64540 INT INP/OBS CARE 3/75MIN Diagnoses Atrial fibrillation with rapid ventricular response I48.91 Anemia D64.9 Acute exacerbation of CHF (congestive heart failure) I50.9 Aortic stenosis I35.0 Left leg swelling M79.89
[2024-05-15 17:44] LABS: Iron 157 mcg/dl (35-150); Lactate Dehydrogenase 226 U/L (86-244); Total Iron Binding Cap Calc 257 mcg/dl (250-450); Transferrin (FE) Percent Satur 61 % (15-50); Unsaturated Iron Binding Cap 100 mcg/dl (155-355)
[2024-05-15 18:05] LABS: Ferritin 1357.4 ng/ml (8-388)
[2024-05-15 18:13] LABS: Folate (Folic Acid),Ser orPlas 12.24 ng/ml (>5.38)
[2024-05-15 18:14] LABS: Vitamin B12 > 1500 pg/ml (180-914)
[2024-05-15 18:20] LABS: Hematocrit (blood only) 25.1 % (37.0-47.0); Hemoglobin 8.1 g/dl (12.0-16.0); Reticulocyte % 3.37 % (0.50-2.00); Reticulocytes # 0.1 10^6/uL (0.020-0.100)
[2024-05-15] MEDS: PANTOprazole 80 MG in DEXTROSE 5% 100 ML IV STA (18:52)
[2024-05-15] MEDS: PHYTONADIONE 10 MG in DEXTROSE 5% 50 ML IV ONE (19:40)
[2024-05-15] MEDS ORDERED: PANTOprazole 40 MG in SYRINGE 0 ML IV SCH (21:00)
--- NOTE | 2024-05-15 21:09 | Electrocardiogram Report ---
Test Reason : Blood Pressure : / mmHG Vent. Rate : 140 BPM Atrial Rate : 000 BPM P-R Int : 000 ms QRS Dur : 078 ms QT Int : 286 ms P-R-T Axes : 000 052 -76 degrees QTc Int : 436 ms Atrial fibrillation with rapid ventricular response with premature ventricular or aberrantly conducte d complexes Nonspecific T wave abnormality Abnormal ECG When compared with ECG of 13-JAN-2024 12:50, Vent. rate has increased BY 57 BPM Confirmed by Trenton Jarquin ([id number]) on 05/15/2024 9:08:46 PM Referred By: REFERRED SELF Confirmed By:Trenton Jarquin
--- OUTSIDE RECORDS SUMMARY | 2024-05-15 21:20 | External Medical Summary | Summary of Care ---
Author Name Unknown Organization [facility] [address] [address] Phone [phone] Care Team Providers Care [employer] Name Role Phone Abelardo Copeland MD Primary Care Provider + Reason for Visit * Reason Onset Date Comments Order Request 04/03/2024 prolia Encounter Details Date Type Department Care Team (Late st Contact Info) Description 04/03/2024 Telephone Rheumatology [facility] [place] [address] [address] Bertrand Williamson MD [address] [place] [id number] Order Request (prolia) Allergies Active Allergy Reactions Criticality Noted Date Comments Adhesive Tape Medium 03/06/2014 Alendronate Sodium Muscle pain Medium 07/01/2012 Muscle and joint aches from fosamax, taken once a week for 6 months, better with stopping fosamax Nickel High 10/04/2023 Other Reaction(s): contact dermatitis documented as of this encounter (statuses as of 04/03/2024) Medications Medication Sig Dispensed Refills Start Date End Date Status TYLENOL EXTRA STRENGTH 500 MG PO TABSIndications:Prim ramon localized osteoarthrosis, lower leg 1-2 as needed 100 Tab 3 12/17/2010 Active Additional Information Patient not taking.Reported on 11/25/2023 TUMS 500 MG PO CHEW Take 1 Tablet by mouth 2 times a day as needed for Heartburn. Active VITAMIN D3 1000 UNITS PO CAPSIndications:Othe r osteoporosis one capsule by mouth daily 90 Cap 3 10/18/2013 Active CENTRUM SILVER PO TABSIndications:Othe r osteoporosis one daily 90 Tab 3 10/18/2013 Active Alpha-Lipoic Acid 100 MG CAPS Take 600 mg by mouth. Active Diclofenac Sodium 1 % External Gel Apply topically to affected area . Apply to knee Active Metoprolol Tartrate 100 MG Oral Tablet (Lopressor)Indicatio ns:HTN, goal below 130/80 Take 1 Tablet by mouth in the morning and 1 Tablet before bedtime. 180 Tablet 3 11/25/2023 Active Clobetasol Propionate 0.05 % External Ointment (Temovate) Apply to affected area at vulva, groin, and perianal area daily 60 g 3 12/15/2023 Active Clobetasol Propionate 0.05 % External Ointment (Temovate) Apply to affected area at vulva, groin, and perianal area daily 60 g 3 12/19/2023 Active Betamethasone Dipropionate Aug 0.05 % External Ointment (Diprolene AF) Apply to affected area at vulva, groin, and perianal area daily 50 g 3 12/19/2023 Active DULoxetine HCl 20 MG Oral Capsule Delayed Release Particles (Cymbalta)Indication s:Agoraphobia,Periph eral polyneuropathy Take 1 Capsule by mouth in the morning. Do not cut, crush or chew. 30 Capsule 1 03/06/2024 Active Ventolin HFA 108 (90 Base) MCG/ACT Inhalation Aerosol Solution Inhale 2 Puffs by mouth every 4 hours as needed for Wheezing (cough and SOB). 18 g 1 03/06/2024 Active Hospital, Clinic, or Other Facility Administered Medication Ordered Dose Route Frequency Start Date End Date Status Denosumab (Prolia) subcut inj 60 mgIndications:Senile osteoporosis 60 mg SC [id number] 10/05/2023 09/29/2024 Active Denosumab (Prolia) subcut inj 60 mgIndications:Senile osteoporosis 60 mg SC ONCE 04/11/2024 04/11/2024 Active documented as of this encounter (statuses as of 04/03/2024) Active Problems Problem Noted Date Diagnosed Date Intermittent atrial fibrillation 03/06/2024 Moderate aortic stenosis 06/22/2023 Grade II diastolic dysfunction 06/22/2023 Shortness of breath 03/16/2022 Hx of radiation therapy 03/16/2022 Well adult exam 02/18/2022 Overview: 03/08 DEXA high risk. Was on prolia, consider restart. Hereditary and idiopathic peripheral neuropathy 07/22/2020 Prediabetes 05/30/2018 Overview: Per Prediabetes protocol #1 - History of breast cancer 05/23/2018 History of nonmelanoma skin cancer 01/18/2018 Overview: Hx of SCC on right posterior leg - 2013 Hx of SCC on scalp - 2011 Senile osteoporosis 05/12/2017 Epiretinal membrane (ERM) of right eye 7 Aortic valve sclerosis 02/26/2016 Hypertension goal BP (blood pressure) < 140/90 1 11/03/2014 History of squamous cell carcinoma 01/09/2014 Female pattern alopecia 01/09/2014 Peripheral sensory neuropathy 06/21/2012 Obesity, Class I, BMI 30.0-34.9 (see actual BMI) 03/23/2012 History of Lyme disease 03/23/2012 Attention deficit disorder without hyperactivity 12/17/2010 Esophageal reflux 12/17/2010 Allergic rhinitis 12/17/2010 Dyslipidemia, goal LDL below 100 12/17/2010 ADHD (attention deficit hype ractivity disorder), inattentive type documented as of this encounter (statuses as of 04/03/2024) Resolved Problems Problem Noted Date Diagnosed Date Resolved Date Benign hypertension with CKD (chronic kidney disease) stage III 03/19/2021 05/26/2021 Hereditary and idiopathic pe ripheral neuropathy 07/22/2020 09/06/2022 Posterior vitreous detachment, left eye 11/18/2016 05/12/2017 Carpal tunnel syndrome, left 02/28/2014 03/08/2019 Overview: moderate by emg Actinic keratosis 01/09/2014 02/16/2016 Solar lentigo 01/09/2014 02/16/2016 Dermatofibroma 01/09/2014 02/16/2016 Seborrheic keratosis 01/09/2014 016 Fibrous papule of nose 01/09/201402/15 HTN, goal below 130/80 12/17/201009/03 Other osteoporosis without c urrent pathological fracture 12/17/2010 03/06/2014 Overview: ICD-10 update of inactive term Primary localized osteoarthrosis, lower leg 12/17/2010 05/12/2017 Anxiety state 12/17/2010 05/12/2017 CA IN SITU BREAST 05/07/2003 01/01/2019 Malignant neoplasm of lower- outer quadrant of female breast 05/07/2003 09/06/2015 Overview: ICD-10 update of inactive term Positive hepatitis C antibody test 02/18/2022 Overview: neg quant documented as of this encounter (statuses as of 04/03/2024) Immunizations Name Administration Dates Next Due COVID-19 mRNA, LNP-s, No Pre serve, 2-Dose Series (Pfizer) 01/14/2022,07/24/2021,12/26/2020,12/05 Covid-19, Mrna, Lnp-s, Pf, B ivalent, 30 Mcg, IM, 12 yrs and above (Pfizer) 02/17/2023,07/21/2022 Pneumococcal Conjugate Vacc, 13 Valent (Prevnar) 08/12/2015 Pneumococcal Polysaccharide PPV23 (Pneumovax) 03/23/2012 Seasonal Influenza, PF, 6 M & above, IM , (FluLaval or Fluzone) 08/03/2019,07/17/2018 Seasonal Influenza, Quadriva lent Hd (Fluzone Hd) 11/25/2023,09/06/2022,08/27/2021 Seasonal Influenza, Quadriva lent, No Preserve, IM 07/06/2020,07/30/2016,07/22/2015 Seasonal Influenza, Split, I IV3, With Preserve, Inj 07/18/2014,07/20/2013,08/14/2012,06/30,07/31/2010 Seasonal Influenza, Trivalen t, High Dose, No Preserve, IM 07/19/2017 TDAP, Age 7 and older, IM (Adacel) 08/12/2010 Varicella Zoster Vaccine (Adult) 01/27/2015 Zoster Vaccine Recombinant (Shingrix) 06/22/2020 documented as of this encounter Social History Tobacco Use Types Packs/Day Years Used Date Smoking Tobacco: Former Cigarettes 1 5 0 10/17/1960 - 10/17/1965 Smokeless Tobacco: Never Alcohol Use Standard Drinks/Week Comments Yes 0 (1 standard drink = 0.6 oz pur e alcohol) 1 beer/year PHQ-2 Answer Date Recorded PHQ Adult Total Score 1 05/26/2021 Hunger Vital Sign Answer Date Recorded Worried About Running Out of Food in the Last Ye ar Never true 03/25/2020 Ran Out of Food in the Last Year Never true 03/25/2020 Utilities Answer Date Recorded Do you have trouble paying y our heating, water, or electric bill? (Adult - for ages 18 years and over) Not on file 04/03/2024 Is your family able to pay t he heat, water, or electric bill? (Household - for ages 0-17 years) Not on file 04/03/2024 Does your family have access to good internet? (Household - for ages 0-17 years) Not on file 04/03/2024 Social Connections Answer Date Recorded How often do you feel lonely or isolated from those around you? (Adult - for ages 18 years and over) Not on file 04/03/2024 Sex and Gender Information Value Date Recorded Sex Assigned at Female 03/25/2020 12:01 PM EDT Gender Identity Female 03/25/2020 12:01 PM EDT Sexual Orientation Choose not to disclose 2019 12:01 PM EDT Job Start Date Occupation Industry Not on file Not on file Not on file documented as of this encounter Miscellaneous Notes * Telephone Encounter - Bertrand Williamson MD - 04/03/2024 9:18 PM EDT signed * Telephone Encounter - Zhanna Barney LPN - 04/03/2024 10:36 AM EDT Chart reviewed and labs noted to be within normal limits. Patient has been seen within the last 12 months by a Rheumatology provider. Prolia authorization approved and updated in referral. Last injection has been > 6 months and 1 day. CAM orders pended for signature. documented in this encounter Plan of Treatment Upcoming Encounters Date Type Department Care Team (Late st Contact Info) Description 04/11/2024 10:30 AM EDT Nurse Only Rheumatology [facility] [place] [address] [place] [address] Pf, Nurse Rheum [facility] [facility] [place] [address] 05/23/2024 11:40 AM EDT Office Visit [facility] [address] [address] Abelardo Copeland MD [address] [address] 07/18/2024 10:00 AM EDT Office Visit [facility] [address] [address] Abelardo Copeland MD [address] [address] 09/07/2024 1:00 PM EST Office Visit Dermatology [facility] [address] [facility] [place] [address] Osbaldo Felder MD [address] [facility] [place] [address] 11/23/2024 12:20 PM EST Office Visit [facility] [address] [address] Abelardo Copeland MD [address] [place] [address] 02/15/2025 2:00 PM EDT Office Visit [facility] [address] [address] Abelardo Copeland MD [address] [address] 03/26/2025 1:40 PM EDT Office Visit [facility] [address] [address] Abelardo Copeland MD [address] [address] Health Maintenance Due Date Last Done Comments DTaP,Tdap,and Td Vaccines (2 - Td or Tdap) 08/12/2020 08/12/2010 Zoster Vaccines (3 of 3) 08/17/2020 06/22/2020, 01/15 Albumin/Creatinine Ratio 04/08/2023 04/08/2020 COVID-19 Vaccine ( season) 2023 07/21/2023, 02/17/2023, 07/21/2022, Additional history exists GFR 12/20/2024 12/21/2023, 04/16, 03/08/2022, Additional history exists HbA1c 12/20/2024 12/21/2023, 04/16, 03/08/2022, Additional history exists DXA Scan 03/08/2025 03/08/2023, 02/15, 02/09/2021, Additional history exists Pneumococcal Vaccine: 65+ Years Completed 08/12/2015, 03/23/2012 Influenza Vaccine (FLU shot) Completed 06/2024, 09/06/2022, 08/27/2021, Additional history exists VITAMIN D LEVEL ONCE IN A LIFETIME-USE SMARTSET# [id number] Completed 12/21/2023, 04/25/2023, 01/20/2021, Additional history exists GARDASIL-HPV IMMUNIZATION SERIES Aged Out No longer eligible based on patient's age to complete this topic Hepatitis B Aged Out No longer eligi ble based on patient's age to complete this topic MENINGOCOCCAL (MENACTRA/MENVEO) Aged Out No longer eligible based on patient's age to complete this topic documented as of this encounter Medical Devices Not on filedocumented as of this encounter Visit Diagnoses Diagnosis Senile osteoporosis- Primary documented in this encounter 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
--- OUTSIDE RECORDS SUMMARY | 2024-05-15 21:20 | External Medical Summary | Summary of Care ---
Author Name Unknown Organization [facility] Address [address] [facility] [place] [address] Phone [phone] Care Team Providers Care Kiln Transfer Operator Name Role Phone Abelardo Copeland MD Primary Care Provider + Reason for Visit * Reason Comments Physical-Exam Yearly physical Encounter Details Date Type Department Care Team (Late st Contact Info) Description 03/06/2024 1:00 PM EDT Office Visit Family Practice [facility] [address] [place] [address] Abelardo Copeland MD [address] [place] [address] Intermittent atrial fibrillation (HCC)*; Localized edema; Dyslipidemia, goal LDL below 100; Obesity, Class I, BMI 30.0-34.9 (see actual BMI); Prediabetes; Moderate aortic stenosis; Grade II diastolic dysfunction; Agoraphobia; Peripheral polyneuropathy; JACKSON (dyspnea on exertion) Allergies Active Allergy Reactions Criticality Noted Date Comments Adhesive Tape Medium 03/06/2014 Alendronate Sodium Muscle pain Medium 07/01/2012 Muscle and joint aches from fosamax, taken once a week for 6 months, better with stopping fosamax Nickel High 10/04/2023 Other Reaction(s): contact dermatitis documented as of this encounter (statuses as of 03/06/2024) Medications Medication Sig Dispensed Refills Start Date [...] inj 60 mgIndications:Senile osteoporosis 60 mg SC [id number] 10/05/2023 09/29/2024 Active documented as of this encounter (statuses as of 03/06/2024) Active Problems Problem Noted Date Diagnosed Date [...] as of this encounter (statuses as of 03/06/2024) Resolved Problems Problem Noted Date Diagnosed Date [...] as of this encounter (statuses as of 03/06/2024) Immunizations Name Administration Dates Next Due COVID-19 mRNA, LNP-s, No Pre serve, 2-Dose Series (Node1) 01/14/2022,07/24/2021,12/26/2020,12/05 Covid-19, Mrna, Lnp-s, Pf, B ivalent, [...] t, High Dose, No Preserve, IM 07/19/2017 TDAP (age 11 and older)(Adacel) 08/12/2010 Varicella Zoster Vaccine (Adult) 01/27/2015 Zoster Vaccine Recombinant (Shingrix) 06/22/2020 documented as of this encounter Social History Tobacco Use Types Packs/Day Years Used Date Smoking Tobacco: Former Cigarettes 1 5 0 10/17/1960 - 10/17/1965 Smokeless Tobacco: Never Tobacco Cessation:Counseling Given: Not Answered Alcohol Use Standard Drinks/Week Comments Yes 0 (1 standard drink = 0.6 oz pur e alcohol) 1 beer/year PHQ-2 Answer Date Recorded PHQ Adult Total Score 1 05/26/2021 Hunger Vital Sign Answer Date Recorded Worried About Running Out of Food in the Last Ye ar Never true 03/25/2020 Ran Out of Food in the Last Year Never true 03/25/2020 Sex and Gender Information Value Date Recorded Sex Assigned at Female 03/25/2020 12:01 PM EDT Gender Identity Female 03/25/2020 12:01 PM EDT Sexual Orientation Choose not to disclose 2019 12:01 PM EDT Job Start Date Occupation Industry Not on file Not on file Not on file documented as of this encounter Last Filed Vital Signs Vital Sign Reading Time Taken Comments Blood Pressure 118/68 03/06/2024 12:58 PM EDT Pulse 93 03/06/2024 12:58 PM EDT Temperature 36.6 C (97.8 F) 03/06/2024 12:58 PM E DT Respiratory Rate 18 03/06/2024 12:58 PM EDT Oxygen Saturation 95% 03/06/2024 12:58 PM EDT Inhaled Oxygen Concentration - - Weight 80.4 kg (177 lb 4 oz) 03/06/2024 12:58 PM EDT Height 159 cm (5' 2.58") 03/06/2024 12:58 PM EDT Body Mass Index 31.82 03/06/2024 12:58 PM EDT documented in this encounter Progress Notes * Abelardo Copeland MD - 03/06/2024 1:51 PM EDT SUBJECTIVE: Gail Sofia is a 78 year old female here for Physical-Exam (Yearly physical) . Here for annual visit. Recently saw Dr Jarquin @[facility] in December, with new Afib. She didn't start Eliquis prescribed ("Ihaven't gotten around to it yet" Had cough x4 wk, improved. Similar to last year. CXR WNL then. Spasmy. Wheezy at night. Never had inhaler. Her other complaint is that she has dyspnea with exertion over the last several months. She can walk from 1 room to another and be slightly short of breath. She can walk up flight of stairs without stopping but paces herself. Walking out to the parking lot she would to stop couple times to rest. Nochest pain no sense of increased palpitations. No fever no chills. No new nausea vomiting diarrhea c onstipation. She notes that left lower extremity has had some swelling for quite a few months. 11/25/23 US neg for DVT Notes she thinks she may have some agoraphobia. Doesn't like to leave house. ROS: Negative except above. Past Medical History: Diagnosis Date ADHD (attention deficit hyperactivity disorder), inattentive type Allergic rhinitis due to other allergen 12/17/2010 Anxiety state 12/17/2010 Carpal tunnel syndrome, left 02/28/2014 moderate by emg Epiretinal membrane (ERM) of right eye 11/18/2016 Esophageal reflux 12/17/2010 with evidence of UGI bleed with mucosal ulcers on EGD Grade II diastolic dysfunction 06/22/2023 Hematuria 1988 bladder irritation, urology workup always negative Hereditary and idiopathic peripheral neuropathy 07/22/2020 HTN, goal below 130/80 12/17/2010 Intermittent atrial fibrillation (HCC) 03/06/2024 Lyme disease treated summer and fall, negative titer Malignant neoplasm of lower outer quadrant of female breast 05/07/2003 Menopause 1992 about age 43 Other osteoporosis 12/17/2010 Positive hepatitis C antibody test neg quant & Abs more recently. had + test in 70s. Primary localized osteoarthrosis, lower leg 12/17/2010 S/p bilateral carpal tunnel release Spinal stenosis at L4-L5 level 09/2015 s/p laminect L4-5 09/30 Ritu; resid L2-3-4 Past Surgical History: Procedure Laterality Date BX LYMPH NODE DEEP AXIL Right 05/31/[address] [facility] Dr[address] Hinton CARPAL TUNNEL SURGERY Right 1997 right, positive EMG and NC, had numbness CARPAL TUNNEL SURGERY Left Sukhjinder COLONOSCOPY, OUTSIDE PROCEDURE 02/02/2010 normal, diverticulosis, [facility], repeat 2019, Dr Nj CYSTOSCOPY 2009 biopsy benign, [place] DILATION AND CURETTAGE (D&C) 1994 EGD, FLEXIBLE, DIAGNOSTIC 02/02/2010 stomach ulcers [facility] Dr Amaro EGD, FLEXIBLE, W/BIOPSY 11/17/2011 z line irregular multiple gastric polyps bxs done EXC BREAST LESION RADMARK 05/02/2003 ,[facility] HEMILAMINECTOMY, CERVICAL/LUMBAR, EA. ADD'L 09/2015 L4-5 Dr. Richardson @[facility] LIGATE/CUT OVIDUCT(S) 1980 PARTIAL MASTECTOMY Right 05/31/[address] [facility] [address] 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 Tobacco Use Smoking status: Former Current packs/day: 0.00 Average packs/day: 1 pack/day for 5.0 years (5.0 ttl pk-yrs) Types: Cigarettes Start date: 10/17/1960 Quit date: 10/17/1965 Years since quittin.4 Smokeless tobacco: Never Vaping Use Vaping status: Never Used Substance and Sexual Activity Alcohol use: Yes Comment: 1 beer/year Drug use: No Sexual activity: Not Currently Partners: Male Comment: but don't live together since around 2014 ( in [place]). 2 boys, 3 grandkids ([facility] & [facility]) Other Topics Concern Not on file Social History Narrative but don't live together since around 2014 ( in [place]). 2 boys, 3 grandkids ([facility] & [facility]) Son Quincy Sofia ([place]) has POA. 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 Physically can't do it now. W/back. Social Determinants of Health Financial Resource Strain: Not on file Food Insecurity: No Food Insecurity (03/25/2020) Hunger Vital Sign Worried About Running Out of Food in the Last Year: Never true Ran Out of Food in the Last Year: Never true Transportation Needs: Not on file Physical Activity: Not on file Stress: Not on file Social Connections: Not on file Intimate Partner Violence: Not on file Housing Stability: Not on file Family History Problem Relation Name Age of Onset Neurological Disorder Mother alzheimer Arthritis Mother Neurological Disorder Father parkinson's Thyroid Disorder Father Obesity Father Bipolar Disorder Sister 1 in [place]. hx delusions. not in touch. Renal Hx Son 2 0 polycystic kidneys, Current Outpatient Medications Medication Sig Dispense Refill DULoxetine HCl 20 MG Oral Capsule Delayed Release Particles (Cymbalta) Take 1 Capsule by mouth in the morning. Do not cut, crush or chew. 30 Capsule 1 Ventolin HFA 108 (90 Base) MCG/ACT Inhalation Aerosol Solution Inhale 2 Puffs by mouth every 4 hours as needed for Wheezing (cough and SOB). 18 g 1 TYLENOL EXTRA STRENGTH 500 MG PO TABS 1-2 as needed (Patient not taking: Reported on 11/25/2023) 100 Tab 3 TUMS 500 MG PO CHEW Take 1 Tablet by mouth 2 times a day as needed for Heartburn. VITAMIN D3 1000 UNITS PO CAPS one capsule by mouth daily 90 Cap 3 CENTRUM SILVER PO TABS one daily 90 Tab 3 Alpha-Lipoic Acid 100 MG CAPS Take 600 mg by mouth. Diclofenac Sodium 1 % External Gel Apply topically to affected area . Apply to knee Metoprolol Tartrate 100 MG Oral Tablet (Lopressor) Take 1 Tablet by mouth in the morning and 1 Tablet before bedtime. 180 Tablet 3 Clobetasol Propionate 0.05 % External Ointment (Temovate) Apply to affected area at vulva, groin, and perianal area daily 60 g 3 Clobetasol Propionate 0.05 % External Ointment (Temovate) Apply to affected area at vulva, groin, and perianal area daily 60 g 3 Betamethasone Dipropionate Aug 0.05 % External Ointment (Diprolene AF) Apply to affected area at vulva, groin, and perianal area daily 50 g 3 Current Facility-Administered Medications Medication Dose Route Frequency Provider Last Rate Last Admin Denosumab (Prolia) subcut inj 60 mg 60 mg Subcutaneous Q6 Months Bertrand Williamson MD 60 mg at 10/05/23 1110 Physical: BP 118/68 | Pulse 93 | Temp 36.6 C (97.8 F) (Tympanic) | Resp 18 | Ht 1.59 m (5' 2.58") | Wt 80.4 kg (177 lb 4 oz) | SpO2 95% | BMI 31.82 kg/m | BSA 1.88 m General-No apparent Distress Head, Eyes, Ears, Nose, Throat--Normocephalic, atraumatic Neck-Supple Lymph-no lymphadenopathy Lungs-Clear to Auscultation bilaterally Cardiovascular--Irregularly irregular rate & Rhythm, +s1, s2, +sys murmur Abdomen-soft, nontender, nondistended + bowel sounds Extremities--non pitting L>R edema Neuro-alert & oriented x3 (I48.0) Intermittent atrial fibrillation (HCC) (primary encounter diagnosis) Plan: encouraged to start Eliquis from cards GLORIA Rate controlled (R60.0) Localized edema Plan: no DVT. Has pires dysfunction (E78.5) Dyslipidemia, goal LDL below 100 Plan: cont mgt (E66.9) Obesity, Class I, BMI 30.0-34.9 (see actual BMI) Plan: counseled on diet/exercise (R73.03) Prediabetes Plan: counseled on diet/exercise (I35.0) Moderate aortic stenosis Plan: f/u cards (I51.89) Grade II diastolic dysfunction Plan: f/u cards (F40.00) Agoraphobia Plan: DULoxetine HCl 20 MG Oral Capsule Delayed Release Particles (Cymbalta) (G62.9) Peripheral polyneuropathy Plan: DULoxetine HCl 20 MG Oral Capsule Delayed Release Particles (Cymbalta) JACKSON--trial albuterol Normal O2 A fib could be related. R/o CAD--rec she f/u cardiology as well I spent a total of 40-54 minutes (exact time 55 mins) on the date of service in preparation, delivery, and documentation of the care provided to Gail Sofia excluding any time spent in the performance of separately billed services. (This note was completed using the dictation program Fluency Direct. As such, there may be misspellings, word substitutions, or other variations that should not change the essence of the clinical content of this encounter note.If there is need for further clarification, please direct questions to the provider listed above.) Abelardo Copeland MD documented in this encounter Nursing Notes * Sammi Cotton LPN - 03/06/2024 12:58 PM EDT The patient has been properly identified by confirmation of name and date of . Chief Complaint Patient presents with Physical-Exam Yearly physical documented in this encounter Plan of Treatment Upcoming Encounters Date Type Department Care Team (Late st Contact Info) Description 04/11/2024 10:30 AM EDT Nurse Only Rheumatology [place] [id number] [facility] [place] [address] Pf, Nurse Rheum 7180 [facility] [place] [address] 05/10/2024 10:00 AM EDT Office Visit Dermatology [facility] [address] [place] [address] Karla Mcclure MD [address] [place] [address] 05/23/2024 11:40 AM EDT Office Visit Family [facility] [address] [place] [address] Abelardo Copeland MD [address] [place] [address] 07/18/2024 10:00 AM EDT Office Visit [facility] [address] [place] [address] [address] Abelardo Copeland MD [address] [place] [address] 09/07/2024 1:00 PM EST Office Visit Dermatology [facility] [address] [place] [address] Osbaldo Felder MD [address] [place] [address] 11/23/2024 12:20 PM EST Office Visit [facility] [address] [place] [address] Abelardo Copeland MD [address] [place] [address] 02/15/2025 2:00 PM EDT Office Visit [facility] [address] [place] [address] Abelardo Copeland MD [address] [place] [address] 03/26/2025 1:40 PM EDT Office Visit [facility] [address] [place] [address] Abelardo Copeland MD [address] [place] [address] Health Maintenance Due Date Last Done Comments DTaP,Tdap,and Td Vaccines (2 - Td or Tdap) 08/12/2020 08/12/2010 Zoster Vaccines (3 of 3) 08/17/2020 06/22/2020, 01/15 Albumin/Creatinine Ratio 04/08/2023 04/08/2020 COVID-19 Vaccine ( season) 2023 02/17/2023, 07/21/2022, 01/14/2022, Additional history exists *BISPHONATE OR OTHER ACCEPTABLE MEDICATION NEEDED FOR OSTEOPOROSIS (REFER TO SMARTSET #1146) 10/06/2023 GFR 12/20/2024 12/21/2023, 04/16, 03/08/2022, Additional history exists HbA1c 12/20/2024 12/21/2023, 04/16, 03/08/2022, Additional history exists DXA Scan 03/08/2025 03/08/2023, 02/15, 02/09/2021, Additional history exists Pneumococcal Vaccine: 65+ Years Completed 08/12/2015, 03/23/2012 Influenza Vaccine (FLU shot) Completed 06/2024, 09/06/2022, 08/27/2021, Additional history exists VITAMIN D LEVEL ONCE IN A LIFETIME-USE SMARTSET# 81350 Completed 12/21/2023, 04/25/2023, 01/20/2021, Additional history exists [...] as of this encounter Visit Diagnoses Diagnosis Intermittent atrial fibrillation (HCC)- Primary Atrial fibrillation Localized edema Edema Dyslipidemia, goal LDL below 100 Other and unspecified hyperlipidemia Obesity, Class I, BMI 30.0-34.9 (see actual BMI) Obesity, unspecified Prediabetes Other abnormal glucose Moderate aortic stenosis Aortic valve disorders Grade II diastolic dysfunction Agoraphobia Agoraphobia without mention of panic attacks Peripheral polyneuropathy Unspecified hereditary and idiopathic peripheral neuropathy JACKSON (dyspnea on exertion) Other dyspnea and respiratory abnormality documented in this encounter Care Teams Kiln Transfer Operator Relationship Specialty Start Date End Date Abelardo Copeland MD [address] [facility] [place] [address] PCP - General Family Medicine 05/26/21 documented as of this encounter
--- OUTSIDE RECORDS SUMMARY | 2024-05-15 21:20 | External Medical Summary | Summary of Care ---
Author Name Unknown Organization [facility] Address [address] [facility] [place] [address] Phone [phone] Care Team Providers Care Computer Hardware Technician Name Role Phone Abelardo Copeland MD Primary Care Provider + Reason for Visit * Reason Comments Physical-Exam Yearly physical Encounter Details Date Type Department Care Team (Late st Contact Info) Description 03/06/2024 1:00 PM EDT Office Visit Family Practice [facility] [address] [place] [address] Abelardo Copeland MD [address] [place] [address] Intermittent atrial fibrillation (HCC)*; Localized edema; Dyslipidemia, [...] inj 60 mgIndications:Senile osteoporosis 60 mg SC [id number] 10/05/2023 09/29/2024 Active documented as of this [...] mRNA, LNP-s, No Pre serve, 2-Dose Series (Lumenis) 01/14/2022,07/24/2021,12/26/2020,12/05 Covid-19, Mrna, Lnp-s, Pf, B ivalent, [...] for annual visit. Recently saw Dr Jarquin @[facility] in December, with new Afib. She didn't [...] LYMPH NODE DEEP AXIL Right 05/31/2003 Right [facility] Dr. Hinton CARPAL TUNNEL SURGERY Right 1997 right, positive EMG and NC, had numbness CARPAL TUNNEL SURGERY Left Sukhjinder COLONOSCOPY, OUTSIDE PROCEDURE 02/02/2010 normal, diverticulosis, [facility], repeat 2019, Dr Nj CYSTOSCOPY 2009 biopsy benign, [place] DILATION AND CURETTAGE (D&C) 1994 EGD, FLEXIBLE, DIAGNOSTIC 02/02/2010 stomach ulcers [facility] Dr Amaro EGD, FLEXIBLE, W/BIOPSY 11/17/2011 z line irregular multiple gastric polyps bxs done EXC BREAST LESION RADMARK 05/02/2003 ,[facility] HEMILAMINECTOMY, CERVICAL/LUMBAR, EA. ADD'L 09/2015 L4-5 Dr. Richardson @[facility] LIGATE/CUT OVIDUCT(S) 1980 PARTIAL MASTECTOMY Right 05/31/2003 Right [facility] Dr. 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 Occupation: Masters in botany /bryology ([employer]). Tobacco [...] live together since around 2014 ( in [place]). 2 boys, 3 grandkids ([facility] & [facility]) Other Topics Concern Not on file Social History Narrative but don't live together since around 2014 ( in [place]). 2 boys, 3 grandkids ([facility] & [facility]) Son Quincy Sofia ([place]) has POA. 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 Physically can't do it now. W/back. Social [...] Obesity Father Bipolar Disorder Sister 1 in [place]. hx delusions. not in touch. Renal Hx [...] 04/11/2024 10:30 AM EDT Nurse Only Rheumatology [place] [phone] [facility] [place] [address] Pf, Nurse Rheum 0150 [facility] [place] [address] 05/10/2024 10:00 AM EDT Office Visit Dermatology [facility] [address] [place] [address] Karla Mcclure MD [address] [place] [address] 05/23/2024 11:40 AM EDT Office Visit Family [facility] [address] [address] [address] bAelardo Copeland MD [address] [place] [address] 07/18/2024 10:00 AM EDT Office Visit [facility] [address] [address] [address] Abelardo Copeland MD [address] [address] 09/07/2024 1:00 PM EST Office Visit Dermatology [facility] [address] [place] [address] Osbaldo Felder MD [address] [place] [address] 11/23/2024 12:20 PM EST Office Visit [facility] [address] [place] [address] Abelardo Copeland MD [address] [place] [address] 02/15/2025 2:00 PM EDT Office Visit [facility] [address] [place] [address] Abelardo Copeland MD [address] [place] [address] 03/26/2025 1:40 PM EDT Office Visit [facility] [address] [place] [address] Abelardo Copeland MD [address] [place] [address] Health Maintenance Due Date Last Done Comments [...] D LEVEL ONCE IN A LIFETIME-USE SMARTSET# [id number] Completed 12/21/2023, 04/25/2023, 01/20/2021, Additional history exists [...] abnormality documented in this encounter Care Teams Computer Hardware Technician Relationship Specialty Start Date End Date Abelardo Copeland MD [address] [facility] [place] [address] PCP - General Family Medicine 05/26/21 documented as of this encounter
--- OUTSIDE RECORDS SUMMARY | 2024-05-15 21:20 | External Medical Summary | Summary of Care ---
Author Name Unknown Organization [facility] Address [address] [facility] [place] [address] Phone [phone] Care Team Providers Care [employer] Weaver Name Role Phone Abelardo Copeland MD Primary Care Provider + Reason for Visit * Reason Onset Date Comments Medication Administration 04/11/2024 Prolia * Precert (Within 10 days (routine)) - Authorized Specialty Diagnoses / Procedures Referred By Contac t Referred To Contact Diagnoses Age-related osteoporosis without current pathological fracture Procedures IA DENOSUMAB INJECTION Bertrand Williamson MD [facility] [place] [address] [place] [id number] Bertrand Williamson MD [facility] [place] [address] Referral ID Status Reason Start Date Expiration Date V isits Requested Visits Authorized [id number] Authorized Precert 03/16/2023 10/16/2099 [id number] Encounter Details Date Type Department Care Team (Late st Contact Info) Description 04/11/2024 10:30 AM EDT Nurse Only Rheumatology [facility] [place] [address] [place] [address] [id number] Pf, Nurse Rheum [address] [place] [id number] Medication Administration (Prolia) Allergies Active Allergy Reactions Criticality Noted Date Comments Adhesive Tape Medium 03/06/2014 Alendronate Sodium Muscle pain Medium 07/01/2012 Muscle and joint aches from fosamax, taken once a week for 6 months, better with stopping fosamax Nickel High 10/04/2023 Other Reaction(s): contact dermatitis documented as of this encounter (statuses as of 04/11/2024) Medications Medication Sig Dispensed Refills Start Date [...] inj 60 mgIndications:Senile osteoporosis 60 mg SC [id number] 10/05/2023 09/29/2024 Active Denosumab (Prolia) subcut inj 60 mgIndications:Senile osteoporosis 60 mg SC ONCE 04/11/2024 04/11/2024 Ended documented as of this encounter (statuses as of 04/11/2024) Active Problems Problem Noted Date Diagnosed Date [...] as of this encounter (statuses as of 04/11/2024) Resolved Problems Problem Noted Date Diagnosed Date [...] as of this encounter (statuses as of 04/11/2024) Immunizations Name Administration Dates Next Due COVID-19 mRNA, LNP-s, No Pre serve, 2-Dose Series (Gojimo) 01/14/2022,07/24/2021,12/26/2020,12/05 Covid-19, Mrna, Lnp-s, Pf, B ivalent, 30 Mcg, IM, 12 yrs and above (Gojimo) 02/17/2023,07/21/2022 Pneumococcal Conjugate Vacc, 13 Valent (Prevnar) [...] Sign Reading Time Taken Comments Blood Pressure - - Pulse - - Temperature 36.1 C (97 F) 04/11/2024 10:35 AM EDT Respiratory Rate - - Oxygen Saturation - - Inhaled Oxygen Concentration - - Weight - - Height - - Body Mass Index - - documented in this encounter Progress Notes * Kisha Barney LPN - 04/11/2024 10:32 AM EDT Gail Sofia presents today for administration of Prolia. She understands the benefits and risks of this treatment. An educational pamphlet was given to the patient. Prolia 60 mg was administered subcutaneously. The patient tolerated the procedure without problems. She will return in 6 months for the next injection and evaluation. Kisha Barney LPN documented in this encounter Plan of Treatment Upcoming Encounters Date Type Department Care Team (Late st Contact Info) Description 05/23/2024 11:40 AM EDT Office Visit [facility] [address] [address] Abelardo Copeland MD [address] [address] 07/18/2024 10:00 AM EDT Office Visit [facility] [address] [address] Abelardo Copeland MD [address] [place] [address] 09/07/2024 1:00 PM EST Office Visit Dermatology [facility] [place] [address] [place] [address] Osbaldo Felder MD [address] [place] [address] 10/22/2024 10:30 AM EST Office Visit Rheumatology [address] [place] [address] Zay Linares, [employer] [address] [facility] [place] [place] [address] 11/23/2024 12:20 PM EST [facility] [address] [facility] [address] Abelardo Copeland MD [address] [place] [address] 02/15/2025 2:00 PM EDT [facility] [address] [facility] [address] Abelardo Copeland MD [address] [place] [address] 03/26/2025 1:40 PM EDT [facility] [address] [facility] [address] Abelardo Copeland MD [address] [place] [address] Health Maintenance Due Date Last Done Comments [...] D LEVEL ONCE IN A LIFETIME-USE SMARTSET# [id number] Completed 12/21/2023, 04/25/2023, 01/20/2021, Additional history exists [...] Senile osteoporosis- Primary documented in this encounter Administered Medications Inactive Administered Medications - up to 3 most recent administrations Medication Order MAR Action Action Date Dose Rate Site Denosumab (Prolia) subcut inj 60 mg 60 mg, Subcutaneous, ONCE, On Tue04/11/24 at 1030, For 1 dose Given 04/11/2024 10:38 AM EDT 60 mg Arm Left Upper documented in this encounter Care Teams [employer] Weaver Relationship Specialty Start Date End Date Abelardo Copeland MD [address] [place] [address] PCP - General Family Medicine 05/26/21 documented as of this encounter
[2024-05-15] MEDS: METOPROLOL TARTRATE 25 MG TAB PO SCH ×2 (21:25→21:28)
[2024-05-15] MEDS: DIGOXIN 250 MCG in SYRINGE 9 ML IV STA (22:16)
[2024-05-16] MEDS: DIGOXIN 250 MCG in SYRINGE 9 ML IV ONE (04:23)
--- NOTE | 2024-05-16 08:31 | Cardiology Consultation ---
Date of Consultation May 16, 2024 Assessment & Plan (1) Atrial fibrillation: (2) Heart failure with preserved ejection fraction: (3) Acute blood loss anemia: (4) Pleural effusion: (5) Aortic stenosis: (6) Mitral regurgitation: Plan ASSESSMENT/PLAN: 1. Atrial fibrillation with rapid ventricular response: Permanent atrial fibrillation. Tachycardic likely due to the fact that she self discontinued her beta-kong (metoprolol 100 mg twice daily) for the past few weeks, and also acute blood loss anemia. Heart rate was acceptable this morning after 2 doses of intravenous digoxin and 1 dose of oral metoprolol. Continue oral metoprolol as tolerated for now. Anticoagulation therapy is being held due to GI bleed with acute, profound anemia. 2. Heart failure with preserved EF: She appears hypervolemic intravascularly. Fortunately, in no acute distress from a respiratory standpoint. Would cautiously diurese when blood pressure allows and try to maintain net negative fluid balance if able. Low-sodium diet. Daily weights. Strict I's and O's. Repeat echo. 3. Hypotension: Likely due to acute blood loss anemia with GI bleed and also initial diuresis in the ER and A-fib with RVR. Plan as above. Blood transfusion is pending. 4. Acute blood loss anemia from GI bleed: Awaiting GI input. Blood transfusion pending. Improvement of anemia will likely improve her heart rate. 5. Aortic stenosis: Repeating echo. Moderate when last evaluated. 6. Mitral regurgitation: Nonsevere when last evaluated. Repeating echo. 7. Disposition: Cardiology will continue to follow. Patient care communicated with Dr. Burnham of the primary hospitalist service. Highly complex medical issues. Thank you for allowing me to participate in the care of your patient. Please call for any other questions or concerns. Sincerely, Travon Jarquin M.D. History of Present Illness Attending Physician: Inés Burnham MD History of Present Illness Ms. Sofia is a very pleasant 78-year-old female with a history significant for aortic stenosis with regurgitation, atrial fibrillation, hypertension, and neurogenic claudication due to lumbar radiculopathy and previous lumbar spine surgery, breast cancer, and ADHD. She has had the following studies/procedures: 1. Dobutamine stress echo 04/05/2022 [facility]: Negative for ischemia. Resting EF 65 to 69%. Mild aortic stenosis with trace AI. Mild MR. 2. PFTs 11/25/22 [facility]: Normal ventilatory pattern and normal lung volumes per radiology. 3. Echo 11/09/2023 [facility]: Normal LV size, wall motion, systolic function. EF 60-64%. Mild LVH. Moderate (PV 3.2; MG 20; DESMOND 0.9; DI 0.3) with mild AI. Severe MAC. Mild MR. Mild to moderate TR. RVSP 39. She recalls undergoing a stress test approximately 2 years ago when evaluated by neurosurgery and reported dyspnea on exertion. She felt as though her dyspnea was potentially triggered by her back pain, which would cause her to hold her breath. She was found to have aortic stenosis and underwent PFTs as well. She was admitted on 05/15/2024 after being referred to the ER by her PCP while she was there for a routine visit. She had been experiencing shortness of breath, fatigue, generalized weakness, and lower extremity edema. She had been experiencing melena for 3 to 4 weeks. She admits that she has had a cough for 3 months. She has been short of breath, described as dyspnea on exertion even walking from room to room in her home. Her legs became much more edematous than when she was initially seen in the card iology office on 01/13/2024. She denies orthopnea. She denies chest pain, syncope, near syncope, palpitations. 3 to 4 weeks ago, she had some bright red blood per rectum which seemed to transition into melena. She would have melena multiple times throughout the day. On her own accord, without seeking medical attention, she discontinued her Eliquis and her metoprolol. She had been taking metoprolol 100 mg twice daily. She admits that she has no appetite but denied abdominal pain. On presentation, she was noted to be anemic with a hemoglobin of 7.9 although just 4-5 months earlier, her hemoglobin was 14.6. She was in atrial fibrillation with rapid ventricular response and she was mildly hypertensive. She received 80 mg of Lasix in the ER. She has since been normotensive to mildly hypotensive. Given hypotension overnight, she was given intravenous digoxin by the hospitalist service, 250 mcg x 2 doses. She was also placed on metoprolol tartrate 25 mg every 6 hours but it was held overnight until this morning at 8:37 AM. She has not been eating or drinking much and has maintained a low-sodium diet. Review of systems: As above. Review of systems otherwise negative/unremarkable. Family history: Father had CAD. Social history: She quit smoking in her early 20s while at college. Very rare alcohol. No drugs. but for years and her is currently in a dementia unit. She has 2 sons, 1 in [place] with a grandchild born in 2023. Her other son lives locally with 2 grandchildren. She was unaccompanied today. Allergies Allergy/AdvReac Type Severity Reaction Status Date / Time nickel Allergy Intermediate contact Verified 05/15/24 15:31 dermatitis adhesive Allergy Mild skin Verified 05/15/24 15:31 irritation alendronate sodium AdvReac Intermediate myalgias Verified 05/15/24 15:31 Home Medications Medication Instructions Recorded Confirmed Type cholecalciferol (vitamin D3) 25 1,000 unit PO DAILY 10/03/19 05/15/24 History mcg (1,000 unit) tablet metoprolol tartrate 100 mg tablet 100 mg PO BID 02/05/21 05/15/24 History calcium carbonate (Tums) 200 mg PO BID PRN 03/30/22 05/15/24 History HEARTBURN/INDIGESTION apixaban 5 mg tablet (Eliquis) 5 mg PO BID #60 tabs 01/13/24 05/15/24 Rx denosumab 60 mg/mL subcutaneous 60 mg subcut Q6MO 01/13/24 05/15/24 History syringe (Prolia) acetaminophen 500 mg tablet 500 - 1,000 mg PO Q6H PRN Pain 05/15/24 05/15/24 History (Tylenol Extra Strength) albuterol sulfate 90 mcg/actuation 2 puff inhalation Q4H PRN 05/15/24 05/15/24 History aerosol inhaler WHEEZING, COUGH, SHORT OF BREATH alpha lipoic acid 600 mg capsule 600 mg PO DAILY 05/15/24 05/15/24 History duloxetine 20 mg capsule,delayed 20 mg PO QAM 05/15/24 05/15/24 History release ssmsnudbzbiy-bzeawinz-mqoazo tablet 1 tab PO DAILY 05/15/24 05/15/24 History Problem List (Updated 05/16/24 @ 11:12 by Trenton Jarquin MD) Pleural effusion Acute blood loss anemia Heart failure with preserved ejection fraction Left leg swelling Anemia (Acute) Pulmonary edema (Acute) Acute exacerbation of CHF (congestive heart failure) (Acute) Acute dyspnea (Acute) Atrial fibrillation with rapid ventricular response (Acute) Atrial fibrillation Mitral regurgitation Anemia ADD (attention deficit disorder) Lumbar radiculopathy (Chronic) Lumbar stenosis with neurogenic claudication Aortic regurgitation Aortic stenosis B12 deficiency Vitamin D deficiency Depression with anxiety Fatigue Dyspnea Idiopathic progressive polyneuropathy (Acute) Chronic low back pain (Acute) Patient History Surgical History (Updated 05/25/19 @ 14:31 by Nancy Michel) Status post tubal ligation S/P tonsillectomy S/P mastectomy Status post repair of nerve Family History (Updated 05/25/19 @ 14:22 by Nancy Michel) Mother Dementia Father Parkinson disease Social History (Updated 05/25/19 @ 14:30 by Nancy Michel) Smoking Status: Former smoker Tobacco Type: Cigarettes Cigarettes Per Day: quit 50 years ago; Hx Alcohol Use: No Hx Substance Use: No Preferred Language: Belarusian Communication Ability: Effective Foreman/Project Manager Required: No Beliefs That Will Affect Care: None Current Living Situation: Alone Current Living Situation Comment: pt has been weak past 2-3 weeks - has had difficulty getting around house Other Information That Helps Us Care for You: No (pt has a dog named Acosta - someone able to take care for only couple days) Feels Safe at Home: Yes Safety Concerns: Feels Safe At This Time Assistive Devices: None Physical Exam Physical Exam: Gen.: No acute distress. Alert and oriented. HEENT: Anicteric sclera. Neck: Mild JVD. Pado jugular reflux noted. Bilateral bruits vs radiation of cardiac murmur. Normal carotid upstrokes bilaterally. Cardiac: No ventricular heave. Irregularly irregular with normal rate (80-90s). Normal S1-S2. 2/6 mid peaking systolic ejection murmur heard best at right upp er sternal border. No rubs or gallops. Pulmonary: Decreased breath sounds at the bases, but otherwise clear to auscultation bilaterally without wheezes, rales, or rhonchi. Abdomen: Soft, nontender, nondistended, with normoactive bowel sounds. No bruits noted. Extremities: 2+ radial pulses bilaterally. 2+ posterior tibialis pulses bilaterally. 2+ bilateral lower extremity edema to the knees and 1+ above the knees bilaterally. No cyanosis. Psychiatric: Affect appears appropriate. Results & Data Vital Signs (Past 12 Hours) Vital Signs Temp Pulse Pulse Resp BP Pulse Ox O2 Del Method 05/16/24 08:00 36.7 C 116 H 22 96/64 L 96 Room Air 05/16/24 06:35 Room Air 05/16/24 04:23 114 H 05/16/24 02:47 36.8 C 125 H 18 94/56 L 95 Room Air 05/15/24 22:18 37.0 C 131 H 26 H 110/74 98 Room Air 05/15/24 22:16 103/71 05/15/24 22:16 140 H 05/15/24 22:00 126 H 05/15/24 21:26 132 H 18 89/68 L 96 Intake & Output 05/14/24 05/15/24 05/16/24 05/17/24 06:59 06:59 06:59 06:59 Intake Total 171 / 171 Balance 171 / 171 Weight 177 lb 7.554 oz Laboratory Results Laboratory Results - last 24 hr 05/15/24 05/15/24 14:33 18:04 WBC 9.48 RBC 2.98 L Hgb 7.9 L 8.1 L Hct 24.9 L 25.1 L MCV 83.6 MCH 26.5 MCHC 31.7 L RDW Coeff of Karen 30.9 H Plt Count 354 Reticulocyte % (Auto) 3.37 H Reticulocyte # 0.100 Absolute Nucleated RBC 0.73 H Nucleated RBC % (auto) 7.7 Neutrophils % (Manual) 71 Lymphocytes % (Manual) 12 Monocytes % (Manual) 5 Eosinophils % (Manual) 5 Basophils % (Manual) 1 Myelocytes % (Man) 1 Blast Cells % (Manual) 5 Neutrophils # (Manual) 6.73 H Total Absolute Neuts 6.73 H Lymphocytes # (Manual) 1.14 L Total Abs Lymphocytes 1.14 L Monocytes # (Manual) 0.47 Eosinophils # (Manual) 0.47 Basophils # (Manual) 0.09 Myelocytes # (Manual) 0.09 H Blast Cells # (Man) 0.47 H Hyposegmented Neuts 2+ Hypogranular Neuts 2+ Blood Smear Review Pending Hypochromasia Present Poikilocytosis Present Anisocytosis Present Pappenheimer Bodies Occasional Ovalocytes 1+ Acanthocytes (Spur) 2+ PT 16.0 H INR 1.5 H APTT 30 PTT Ratio 1.1 Sodium 133 L Potassium 3.7 Chloride 98 Carbon Dioxide 26 Anion Gap 9 BUN 21 Creatinine 0.94 Est Cr Clr Drug Dosing Not Reportable Est GFR ( Amer) 66.4 Est GFR (Non-Af Amer) 57.3 BUN/Creatinine Ratio 22.3 H Glucose 146 H Calcium 8.6 Magnesium 2.0 Iron 157 H TIBC 257 Unsaturated IBC 100 L Transferrin % Sat 61 H Ferritin 1357.4 H Total Bilirubin 2.5 H AST 23 ALT 17 Alkaline Phosphatase 106 H Lactate Dehydrogenase 226 Troponin I High Sens 6.5 B-Natriuretic Peptide 350 H Total Protein 6.2 Albumin 3.3 L Globulin 2.9 Albumin/Globulin Ratio 1.1 Vitamin B12 > 1500 H Folate 12.24 Blood Type O Negative Antibody Screen NEGATIVE Diagnostic Findings Labs reviewed and notable for elevated BNP, mild hyponatremia, stable renal function, normal potassium, new onset anemia with a low hemoglobin of 7.9 but previously 14.6 on 12/21/2023. Normal high-sensitivity troponin. ECG personally reviewed from 05/15/2024 at 1426: A-fib RVR 140 bpm. PVCs versus aberrantly conducted complexes. Nonspecific T wave abnormality. History and physical report reviewed. CTA chest 05/15/2024: No pulmonary embolus. Large bilateral pleural effusions. Telemetry personally reviewed: Atrial fibrillation mostly with rapid ventricular response however heart rate trending downward this morning when evaluated and heart rate was normal at that time with heart rate mostly 80s to 90s. Medications Administered Current Inpatient Medications Duloxetine HCl (Duloxetine Hcl 20 Mg Cap) 20 mg PO QAM NATALIA Stop: 06/15/24 08:59 Pantoprazole Sodium 40 mg/ (Syringe) 10 mls @ 5 mls/min IV BID NATALIA Stop: 06/15/24 08:59 Metoprolol Tartrate (Metoprolol Tartrate 25 Mg Tab) 25 mg PO Q6H NATALIA Stop: 06/14/24 20:59 Last Admin: 05/16/24 02:53 Dose: Not Given Multivitamins/Minerals (Cerovite Adv Formula Tab) 1 tab PO DAILY NATALIA Stop: 06/15/24 08:59 PG Care Time/CCT Total # of Minutes Spent Total Time Spent with Patient: Total time spent is greater than 50% in coordination of care (as documented) at patient's floor/unit and/or counseling patient: Coding Level of Care Code 81203 INT INP/OBS CARE MIN Diagnoses Atrial fibrillation I48.91 Heart failure with preserved ejection fraction I50.30 Acute blood loss anemia D62 Pleural effusion J90 Aortic stenosis I35.0 Mitral regurgitation I34.0
[2024-05-16] MEDS: PANTOprazole 40 MG in SYRINGE 0 ML IV SCH (08:37)
[2024-05-16] MEDS: CEROVITE ADV FORMULA TAB PO SCH (08:37)
[2024-05-16] MEDS: DULoxetine HCL 20 MG CAP PO SCH (08:37)
[2024-05-16 09:04] LABS: Hematocrit (blood only) 21.6 % (37.0-47.0); Hemoglobin 7.1 g/dl (12.0-16.0); Mean Corpuscular Hemoglobin 26.7 pg (25.0-34.0); Mean Corpuscular Hgb Conc 32.9 g/dL (32.0-36.0); Mean Corpuscular Volume 81.2 fL (80.0-100.0); Nucleated RBC # (auto) 0.45 K/uL (0.00-0.12); Nucleated RBC % (auto) 5.6 %; Platelet Count 303 K/uL (130-400); RDW Coefficient of Variation 30.5 % (11.5-14.5); Red Blood Count 2.66 M/uL (4.20-5.40); White Blood Count 7.97 K/ul (4.8-10.8)
[2024-05-16 09:16] LABS: Albumin Globulin Ratio 1.2 (0.9-2); Albumin Level 2.7 gm/dl (3.4-5.0); BUN Creatinine Ratio 22.8 (10-20); Calcium 7.4 mg/dl (8.6-10.3); Creatinine Clr Calc Pharmacy 54.6 ml/min; Est GFR (African American) 81.9 ml/min; Est GFR (Non-African American) 70.7 ml/min; Globulin 2.3 gm/dl (2.5-4.0); Potassium 3.6 mmol/L (3.5-5.1)
[2024-05-16 09:37] LABS: INR 1.3 (0.9-1.1); Prothrombin Time 13.7 Seconds (9.0-12.0)
[2024-05-16] MEDS ORDERED: SODIUM CHLORIDE 0.9% 250 ML IV PRN (10:21)
[2024-05-16 10:26] LABS: ALC (manual) 1.51 K/uL (1.2-3.4); ANC (manual) 5.66 K/uL (1.4-6.5); Anisocytosis Present; Blast # (manual) 0.32 K/uL (0-0); Blast Cells % (manual) 4 %; Eosinophils # (manual) 0.16 K/uL (0-0.50); Eosinophils % (manual) 2 %; Lymphocytes # (manual) 1.51 K/uL (1.2-3.4); Lymphocytes % (manual) 19 %; Monocytes # (manual) 0.32 K/uL (0.11-0.59); Monocytes % (manual) 4 %; Neutrophils # (manual) 5.66 K/uL (1.40-6.50); Neutrophils % (manual) 71 %; Poikilocytosis Present; Polychromasia 2+
--- NOTE | 2024-05-16 10:26 | Ultrasound Report ---
LEFT LOWER EXTREMITY VENOUS DOPPLER HISTORY: Left leg swelling. ?DVT COMPARISON STUDY: None. FINDINGS: There is normal compressibility, flow, and augmentation within the left lower extremity rhea p venous system. IMPRESSION: No DVT within the left lower extremity. ACT 112: Negative or not required by law. Electronically signed by: Elvis Link M.D. 05/16/2024 10:24 AM
[2024-05-16] MEDS: CALCIUM GLUCONATE 1,000 MG/60 ML BAG IV STA (11:15)
[2024-05-16] MEDS: FUROSEMIDE INJ 20 MG/2 ML VIAL IV ONE ×2 (11:28→15:30)
--- NOTE | 2024-05-16 14:01 | XCELERA ---
[id number] \\[id number]
--- NOTE | 2024-05-16 14:32 | Gastrointestinal Consultation ---
<Statement entered by Shruthi Hager MD - 05/16/24 17:21> I have examined the patient, reviewed the History & Physical and in the interval since the performance of the History & Physical I have noted the following changes of clinical significance: no changes noted. I agree with the documentation provided by ANGIE Matthew with no additional comments. Awaiting cardiopulm optimization prior to EGD. Will be of increased risk given severe . Date of Consultation May 16, 2024 Assessment & Plan (1) Acute blood loss anemia: Patient is an 78 yo female admitted for cough, dyspnea on exertion, bilateral lower extremity edema, large bilateral pleural effusions, and last known echo with moderate aortic stenosis. -Continue IV Protonix 40 mg BID -Avoid NSAIDs. -Continue to monitor H/H -Will allow primary team time to treat her non-GI abnormalities and await updated echocardiogram prior to considering EGD. Continue to monitor for overt bleeding. History of Present Illness Reason for Consultation: Anemia, black stool Attending Physician: Inés Burnham MD History of Present Illness Patient is an 78 yo female who presented to the ED for further evaluation of increased shortness of breath and BLLE edema. Patient notes symptoms have been ongoing x 3 months. She notes fatigue. She had been taking NSAIDs due to hip pain. She noted intermittent melena thereafter. She discontinued her Eliquis 2-4 weeks ago when she internet searched "dark stools" and was concerned she may have an ulcer. She has a history of duodenal ulcer. She stopped her Metoprolol on her own as well (I'm unclear of the reason). She had an EGD & colonoscopy in 2011 with Pax8 and she self-reports a duodenal ulcer. She was using Naproxen at that time. H/H 7.1/21.6. INR 1.3. BUN 18, Creatinine 0.79. T bili is 2.0 (was 2.5). AST/ALT unremarkable. Alk phos 89. BNP 350. She is admitted with CHF exacerbation, Afib with RV, & has a history of moderate aortic stenosis. Repeat echocardiogram pending. CTA indicates large bilateral pleural effusions. Allergies Allergy/AdvReac Type Severity Reaction Status Date / Time nickel Allergy Intermediate contact Verified 05/15/24 15:31 dermatitis adhesive Allergy Mild skin Verified 05/15/24 15:31 irritation alendronate sodium AdvReac Intermediate myalgias Verified 05/15/24 15:31 Home Medications Medication Instructions Recorded Confirmed Type cholecalciferol (vitamin D3) 25 1,000 unit PO DAILY 10/03/19 05/15/24 History mcg (1,000 unit) tablet metoprolol tartrate 100 mg tablet 100 mg PO BID 02/05/21 05/15/24 History calcium carbonate (Tums) 200 mg PO BID PRN 03/30/22 05/15/24 History HEARTBURN/INDIGESTION apixaban 5 mg tablet (Eliquis) 5 mg PO BID #60 tabs 01/13/24 05/15/24 Rx denosumab 60 mg/mL subcutaneous 60 mg subcut Q6MO 01/13/24 05/15/24 History syringe (Prolia) acetaminophen 500 mg tablet 500 - 1,000 mg PO Q6H PRN Pain 05/15/24 05/15/24 History (Tylenol Extra Strength) albuterol sulfate 90 mcg/actuation 2 puff inhalation Q4H PRN 05/15/24 05/15/24 History aerosol inhaler WHEEZING, COUGH, SHORT OF BREATH alpha lipoic acid 600 mg capsule 600 mg PO DAILY 05/15/24 05/15/24 History duloxetine 20 mg capsule,delayed 20 mg PO QAM 05/15/24 05/15/24 History release isrzkbzpbwkj-wvmcniry-vfcvdu tablet 1 tab PO DAILY 05/15/24 05/15/24 History Patient History Surgical History Status post tubal ligation S/P tonsillectomy S/P mastectomy Status post repair of nerve Family History Mother Dementia Father Parkinson disease Social History Smoking Status: Former smoker Tobacco Type: Cigarettes Cigarettes Per Day: quit 50 years ago; Hx Alcohol Use: No Hx Substance Use: No Preferred Language: Egyptian Communication Ability: Effective Yard Clerk Required: No Beliefs That Will Affect Care: None Current Living Situation: Alone Current Living Situation Comment: pt has been weak past 2-3 weeks - has had difficulty getting around house Other Information That Helps Us Care for You: No (pt has a dog named Acosta - someone able to take care for only couple days) Feels Safe at Home: Yes Safety Concerns: Feels Safe At This Time Assistive Devices: None Review of Systems Constitutional: no fever and no chills Respiratory: + cough, + dyspnea and + dyspnea on exer tion Gastrointestinal: + melena; no abdominal pain Physical Exam Constitutional: well developed Respiratory: normal respiratory effort Cardiovascular: Rate/Rhythm: + irregularly irregular Gastrointestinal (Abdomen): normal bowel sounds, soft, nontender, no hepatosplenomegaly Psychiatric: Orientation: alert Results & Data Vital Signs (Past 12 Hours) Vital Signs Temp Pulse Pulse Resp BP BP Pulse Ox 05/16/24 13:12 36.6 C 80 18 99/58 L 95 05/16/24 12:42 36.8 C 105 H 20 99/52 L 95 05/16/24 12:27 36.5 C 111 H 18 99/73 L 95 05/16/24 12:04 36.8 C 113 H 20 99/73 L 91 05/16/24 11:25 36.8 C 109 H 20 119/64 97 05/16/24 08:00 05/16/24 08:00 36.7 C 116 H 22 96/64 L 96 05/16/24 06:35 05/16/24 04:23 114 H 05/16/24 02:47 36.8 C 125 H 18 94/56 L 95 O2 Del Method 05/16/24 13:12 05/16/24 12:42 05/16/24 12:27 05/16/24 12:04 05/16/24 11:25 Room Air 05/16/24 08:00 Room Air 05/16/24 08:00 Room Air 05/16/24 06:35 Room Air 05/16/24 04:23 05/16/24 02:47 Room Air PG Care Time/CCT Total # of Minutes Spent Total Time Spent with Patient: Total time spent is greater than 50% in coordination of care (as documented) at patient's floor/unit and/or counseling patient: Coding Level of Care Code 80320 INT INP/OBS CARE 3/75MIN Diagnoses Acute blood loss anemia D62
--- NOTE | 2024-05-16 16:10 | Hospitalist Progress Note ---
Date of Service May 16, 2024 Assessment & Plan (1) Acute blood loss anemia: Plan: Hgb 14.6 [December 2023] -> 7.9 on admission and down further to 7.1 now, microcytic, also with 5% blasts and abnormal peripheral smear-flow cytometry sent and pending With intermittent melena over the past few weeks along with epigastric pain- suspect peptic ulcer disease in the setting of taking Eliquis She discontinued her Eliquis at home about 2 weeks ago but is continuing to have small amount of melena even here iron studies are actually elevated, B12 normal, folate normal, and recent TSH normal Total bilirubin elevated at 2.0 but LDH is normal, doubt hemolysis Pantoprazole 80mg IV x 1 was given and continues on pantoprazole 40mg IV BID Consult GI appreciated-hold off on EGD until cardiopulmonary issues are optimized Transfused 1 unit PRBCs slowly on 05/16 for further drop in hemoglobin to 7.1 and with hypotension and tachycardia Follow CBC this evening-repeat hemoglobin up to 8.7 Follow CBC again in the morning, transfuse as needed Given blast cells-consult hematology although this is not likely related to her acute blood loss anemia (2) GI bleed: Plan: As noted above with melena Continue to hold Eliquis, transfuse as above IV Protonix EGD as per GI if cardiac issues optimized Okay to advance diet to full liquids today, n.p.o. after midnight in case of EGD tomorrow Check Hemoccult Hypocalcemia-gave 1 gram calcium gluconate which will also help low BPs (3) Atrial fibrillation with rapid ventricular response: Plan: Tachycardia is in part compensatory for acute blood loss anemia but also likely elevated due to stopping her metoprolol Given low normal BP (suspect from Lasix 80 mg IV given in the ER in setting of aortic stenosis) giving lower doses of metoprolol 25mg PO q6h with hold parameters for hypotension (prior dose 100mg PO BID) Holding anticoagulation due to suspected GI bleed Monitor on telemetry Was given 2 doses of IV digoxin on 05/15 which has improved Consult cardiology for further evaluation and treatment appreciated (4) Heart failure with preserved ejection fraction: Plan: Acute on chronic diastolic (congestive) heart failure Secondary to a. fib RVR and aortic stenosis. With large bilateral pleural effusions, 3+ pitting edema of the bilateral lower extremities up to the thighs, and elevated BNP. Fortunately she is not hypoxic She dropped her blood pressure quite low after Lasix 80 Mg IV x 1 given in the ER. Will need to give cautious diuresis with severe aortic stenosis Will attempt rate control with low-dose metoprolol as above, support blood pressure with blood transfusion slowly over 4 hours and give Lasix 20 Mg IV x 1 afterwards as blood pressure improved Check echocardiogram-shows preserved EF 65-70%, no regional WMA's, mild concentric LVH, and now severe aortic stenosis, mild AI, mild pulmonary hypertension with RVSP 44 mmHg, and a large pleural effusion Strict I&Os, Daily weight, low-sodium diet once diet is advanced Consult cardiology appreciated Place Ivory catheter as she is having difficulty getting up to use the bathroom and for more accurate I's and O's (5) Aortic stenosis: Plan: now is severe on ECHO, with CHF, hypotension in response to higher doses of lasix Will need to discuss with cardiology about evaluation for valve replacement given her heart failure but will optimize with rate control first (6) Abnormal CBC: Plan: 5% blasts seen on peripheral smear, pathology suspects myelodysplasia Flow cytometry sent out Consult hematology for further evaluation (7) Left leg swelling: Plan: US venous doppler -negative swelling is bilat and related to CHF continue diuresis Plan Chronic medical issues: Peripheral neuropathy-continue duloxetine 20 mg daily which is also for anxiety H/o Breast CA-noted Anxiety-duloxetine VTE Prophylaxis - SCDs, TEDs Disposition -continued stay PCU Admission and Anticipated Discharge Date Admission Date: May 15, 2024 Subjective Patient reports that when she coughs she has small amounts of incontinence to stool but she is not aware since she has been here what color it is but nursing reports that she had black stool overnight. She has been having intermittent black stools over the last few weeks but when the bleeding started, there was some small amount of bright red blood as well. She is also complained of intermittent epigastric pain and figured she had an ulcer so she stopped taking her Eliquis. She is feeling less short of breath than when she came in, denies chest pains. She reports she stopped taking her medications also recently and basically has not eaten because she has been so weak she was not even able to walk to the kitchen to get food or her medications I discussed her care with cardiology Telemetry with atrial fibrillation and PVCs with rates in the 100s to 1 teens Physical Exam Constitutional: WD/WN, vitals as above Respiratory: normal respiratory effort and + cough (With deep inspiration) Auscultation: + diminished lung sounds (At the bases bilaterally); no crackles, no rhonchi and no wheezes Cardiovascular: Rate/Rhythm: + tachycardic and + irregularly irregular Heart Sounds: + murmur (2/6 ENIO at the RUSB) Extremities: + edema (3+ pitting edema to the thighs bilaterally) Gastrointestinal (Abdomen): normal bowel sounds, soft, nontender, no hepatosplenomegaly Psychiatric: A+Ox3, euthymic affect Genitourinary: Ivory catheter in place draining clear yellow urine Results & Data Results & Data Vital Signs (Past 12 Hours) Vital Signs Temp Pulse Pulse Resp BP BP Pulse Ox 05/16/24 15:50 36.7 C 111 H 18 101/74 98 05/16/24 15:26 36.5 C 99 H 20 106/63 95 05/16/24 13:12 36.6 C 80 18 99/58 L 95 05/16/24 12:42 36.8 C 105 H 20 99/52 L 95 05/16/24 12:27 36.5 C 111 H 18 99/73 L 95 05/16/24 12:04 36.8 C 113 H 20 99/73 L 91 05/16/24 11:25 36.8 C 109 H 20 119/64 97 05/16/24 08:00 05/16/24 08:00 36.7 C 116 H 22 96/64 L 96 05/16/24 06:35 05/16/24 04:23 114 H O2 Del Method 05/16/24 15:50 Room Air 05/16/24 15:26 05/16/24 13:12 05/16/24 12:42 05/16/24 12:27 05/16/24 12:04 05/16/24 11:25 Room Air 05/16/24 08:00 Room Air 05/16/24 08:00 Room Air 05/16/24 06:35 Room Air 05/16/24 04:23 Laboratory Results CBC x 2, BMP, INR, LFTs and peripheral smear reviewed PG Care Time/CCT Total # of Minutes Spent Total Time Spent with Patient: Total time spent is greater than 50% in coordination of care (as documented) at patient's floor/unit and/or counseling patient: Coding Level of Care Code 79257 SUB INP/OBS CARE 3/50MIN Diagnoses Acute blood loss anemia D62 GI bleed K92.2 Atrial fibrillation with rapid ventricular response I48.91 Heart failure with preserved ejection fraction I50.30 Aortic stenosis I35.0 Abnormal CBC R79.89 Left leg swelling M79.89
[2024-05-16 17:26] LABS: Nucleated RBC % (auto) 5.5 %
[2024-05-16 17:43] LABS: Hematocrit (blood only) 27.3 % (37.0-47.0); Hemoglobin 8.7 g/dl (12.0-16.0); Mean Corpuscular Hemoglobin 25.5 pg (25.0-34.0); Mean Corpuscular Hgb Conc 31.9 g/dL (32.0-36.0); Mean Corpuscular Volume 80.1 fL (80.0-100.0); Platelet Count 279 K/uL (130-400); RDW Coefficient of Variation 29.7 % (11.5-14.5); RDW Standard Deviation 83.6 fL (36.4-46.3); Red Blood Count 3.41 M/uL (4.20-5.40)
[2024-05-17 06:56] LABS: Hypogranular Neutrophils 2+
[2024-05-17 07:19] LABS: Albumin Globulin Ratio 1.2 (0.9-2); Albumin Level 2.6 gm/dl (3.4-5.0); Bilirubin,Total 2.3 mg/dl (0.2-1.0); Calcium 7.3 mg/dl (8.6-10.3); Creatinine Clr Calc Pharmacy 58.2 ml/min; Est GFR (African American) 88.7 ml/min; Est GFR (Non-African American) 76.5 ml/min; Globulin 2.2 gm/dl (2.5-4.0); Magnesium 1.7 mg/dl (1.7-2.4); Potassium 3.4 mmol/L (3.5-5.1); Total Protein 4.8 gm/dl (6.0-8.3)
[2024-05-17 07:34] LABS: ALC (manual) 0.59 K/uL (1.2-3.4); ANC (manual) 6.91 K/uL (1.4-6.5); Acanthocytes 2+; Anisocytosis Present; Basophilic Stippling 1+; Basophils # (manual) 0.08 K/uL (0-0.2); Basophils % (manual) 1 %; Blast # (manual) 0.25 K/uL (0-0); Blast Cells % (manual) 3 %; Echinocytes 1+; Eosinophils # (manual) 0.25 K/uL (0-0.50); Eosinophils % (manual) 3 %; Hematocrit (blood only) 24.9 % (37.0-47.0); Hypogranular Neutrophils 2+; Lymphocytes # (manual) 0.59 K/uL (1.2-3.4); Lymphocytes % (manual) 7 %; Mean Corpuscular Hemoglobin 25.6 pg (25.0-34.0); Mean Corpuscular Hgb Conc 32.1 g/dL (32.0-36.0); Mean Corpuscular Volume 79.8 fL (80.0-100.0); Metamyelocytes # (manual) 0.08 K/uL (0-0); Metamyelocytes % (manual) 1 %; Monocytes # (manual) 0.25 K/uL (0.11-0.59); Monocytes % (manual) 3 %; Neutrophils # (manual) 6.91 K/uL (1.40-6.50); Neutrophils % (manual) 82 %; Nucleated RBC # (auto) 0.42 K/uL (0.00-0.12); Platelet Count 256 K/uL (130-400); Poikilocytosis Present; Polychromasia 1+; RDW Standard Deviation 84.8 fL (36.4-46.3); Red Blood Count 3.12 M/uL (4.20-5.40); Schistocytes 1+; White Blood Count 8.43 K/ul (4.8-10.8)
--- NOTE | 2024-05-17 07:44 | Oncology Consultation ---
Date of Consultation May 17, 2024 Assessment & Plan (1) Acute blood loss anemia: (2) Breast cancer: Plan -Pleasant female with multiple comorbidities admitted with symptomatic anemia felt to be due to GI blood loss. Peripheral smear review incidentally noted peripheral blasts suggestive of possible MDS. Flow cytometry on peripheral blood pending. Results discussed with patient. Explained to her that although circulating blasts can be caused by stress, infections, medications, highly concerned that she could have bone marrow replacing malignancy such as MDS, leukemia since peripheral smear review revealed 5% blasts which is fairly significant. She has no other cytopenias except for anemia which is likely partly due to blood loss and suggestive of early/mild hematologic process such as MDS .Interestingly, MCV is low which is likely due to blood loss. -Recommend obtaining bone marrow biopsy either inpatient/outpatient to evaluate for MDS/other hematologic malignancy. Patient would prefer inpatient bone marrow biopsy. Will therefore arrange for this to be performed on Tuesday per her wishes. Thank you for this consult. Hematology will follow peripherally while in the hospital and arrange for outpatient follow-up to discuss results of bone marrow biopsy. History of Present Illness Reason for Consultation: Blasts on peripheral smear Attending Physician: Inés Burnham MD History of Present Illness 78-year-old female with medical history significant for breast cancer in 2003 s/p lumpectomy and adjuvant radiation treatment, atrial fibrillation , Aortic stenosis and h/o gastric ulcer. Patient presented to the ER with shortness of breath, lower extremity swelling and atrial fibrillation with RVR. Labs obtained continue ER revealed anemia with hemoglobin of 7.9, hematocrit of 24.9. Of note, labs obtained in December, revealed normal hemoglobin of 14.6. Peripheral smear review by pathology revealed anisopoikilocytosis, hypochromasia, many acanthocytes, rare ovalocytes, hypo-granulated PMN leukocytes with hypo-lobulation, and 5% blasts suggestive of myelodysplasia. Flow cytometry was also obtained which is pending. Allergies Allergy/AdvReac Type Severity Reaction Status Date / Time nickel Allergy Intermediate contact Verified 05/15/24 15:31 dermatitis adhesive Allergy Mild skin Verified 05/15/24 15:31 irritation alendronate sodium AdvReac Intermediate myalgias Verified 05/15/24 15:31 Home Medications Medication Instructions Recorded Confirmed Type cholecalciferol (vitamin D3) 25 1,000 unit PO DAILY 10/03/19 05/15/24 History mcg (1,000 unit) tablet metoprolol tartrate 100 mg tablet 100 mg PO BID 02/05/21 05/15/24 History calcium carbonate (Tums) 200 mg PO BID PRN 03/30/22 05/15/24 History HEARTBURN/INDIGESTION apixaban 5 mg tablet (Eliquis) 5 mg PO BID #60 tabs 01/13/24 05/15/24 Rx denosumab 60 mg/mL subcutaneous 60 mg subcut Q6MO 01/13/24 05/15/24 History syringe (Prolia) acetaminophen 500 mg tablet 500 - 1,000 mg PO Q6H PRN Pain 05/15/24 05/15/24 History (Tylenol Extra Strength) albuterol sulfate 90 mcg/actuation 2 puff inhalation Q4H PRN 05/15/24 05/15/24 History aerosol inhaler WHEEZING, COUGH, SHORT OF BREATH alpha lipoic acid 600 mg capsule 600 mg PO DAILY 05/15/24 05/15/24 History duloxetine 20 mg capsule,delayed 20 mg PO QAM 05/15/24 05/15/24 History release iysceznohrvr-xmdmlvde-yksnml tablet 1 tab PO DAILY 05/15/24 05/15/24 History Patient History Surgical History Status post tubal ligation S/P tonsillectomy S/P mastectomy Status post repair of nerve Family History Mother Dementia Father Parkinson disease Social History Smoking Status: Former smoker Tobacco Type: Cigarettes Cigarettes Per Day: quit 50 years ago; Hx Alcohol Use: No Hx Substance Use: No Preferred Language: Estonian Communication Ability: Effective Manager Interface Required: No Beliefs That Will Affect Care: None Current Living Situation: Alone Current Living Situation Comment: pt has been weak past 2-3 weeks - has had difficulty getting around house Other Information That Helps Us Care for You: No (pt has a dog named Acosta - someone able to take care for only couple days) Feels Safe at Home: Yes Safety Concerns: Feels Safe At This Time Assistive Devices: None Results & Data Vital Signs (Past 12 Hours) Vital Signs Temp Pulse Pulse Resp BP Pulse Ox O2 Del Method 05/17/24 07:00 91 H 05/17/24 02:44 36.6 C 94 H 18 103/53 L 94 Room Air 05/16/24 22:37 37.2 C 85 18 102/68 93 Room Air 05/16/24 20:20 90 95/50 L
[2024-05-17] MEDS: FUROSEMIDE INJ 20 MG/2 ML VIAL IV ONE (07:53)
[2024-05-17] MEDS: MAGNESIUM SULFATE / D5W 1 GM/100 ML BAG IV SCH (07:53)
[2024-05-17] MEDS: POTASSIUM CHLORIDE CRTAB 20 MEQ TABCR PO SCH (07:55)
[2024-05-17] MEDS: CALCIUM GLUCONATE 1,000 MG/60 ML BAG IV ONE (09:52)
--- NOTE | 2024-05-17 11:24 | Gastroenterology Progress Note ---
<Statement entered by Shruthi Hager MD - 05/17/24 15:22> I have examined the patient, reviewed the History & Physical and in the interval since the performance of the History & Physical I have noted the following changes of clinical significance: no changes noted. I agree with the documentation provided by ANGIE Matthew with no additional comments. Date of Service May 17, 2024 Assessment & Plan (1) Acute blood loss anemia: Plan: -Full liquid diet today -Continue to monitor H/H -Keep NPO after midnight for EGD tomorrow (05/18) as long as she is optimized from a cardiac standpoint and okay with anesthesia. She does have severe aortic stenosis so is at higher risk. -Continue IV Protonix 40 mg BID Admission and Anticipated Discharge Date Admission Date: May 15, 2024 Subjective Patient is an 78 yo female GI is following for melena & anemia. She had black stool documented yesterday. H/H 8.0/24.9. Review of Systems Gastrointestinal: + melena Physical Exam Constitutional: well developed Respiratory: normal respiratory effort Gastrointestinal (Abdomen): Inspection/Auscultation: abdomen normal to inspection Results & Data Results & Data Vital Signs (Past 12 Hours) Vital Signs Temp Pulse Pulse Resp BP Pulse Ox O2 Del Method 05/17/24 10:28 37.0 C 95 H 18 101/73 95 Room Air 05/17/24 08:13 36.8 C 98 H 17 117/73 93 Room Air 05/17/24 08:00 Room Air 05/17/24 07:00 91 H 05/17/24 02:44 36.6 C 94 H 18 103/53 L 94 Room Air PG Care Time/CCT Total # of Minutes Spent Total Time Spent with Patient: Total time spent is greater than 50% in coordination of care (as documented) at patient's floor/unit and/or counseling patient: Coding Level of Care Code 65560 SUB INP/OBS CARE 3/50MIN Diagnoses Acute blood loss anemia D62
--- NOTE | 2024-05-17 13:50 | Cardiology Progress Note ---
Date of Service May 17, 2024 Assessment & Plan (1) Atrial fibrillation: (2) Heart failure with preserved ejection fraction: (3) Acute blood loss anemia: (4) Pleural effusion: (5) Aortic stenosis: (6) Mitral regurgitation: Plan ASSESSMENT/PLAN: 1. Atrial fibrillation with rapid ventricular response: Permanent atrial fibrillation. Tachycardic likely due to the fact that she self discontinued her beta-kong (metoprolol 100 mg twice daily) for the past few weeks, and also acute blood loss anemia. Heart rate reasonably controlled now with resumption of metoprolol tartrate. Continue beta-kong as tolerated. Anticoagulation therapy is being held due to GI bleed with acute, profound anemia. 2. Heart failure with preserved EF: Volume status appears improved. Agree with as needed gentle diuresis. Received Lasix 20 mg IV x 1 today. Try to maintain net negative fluid balance, if blood pressure allows. Low-sodium diet. Daily weights. Strict I's and O's. 3. Hypotension: Blood pressure mostly normotensive to mildly hypotensive. Asymptomatic in this regard. No further diuresis today. 4. Acute blood loss anemia from GI bleed: Has received PRBC. Endoscopy planned for tomorrow. Hematology following for blasts. 5. Aortic stenosis: Severe aortic stenosis on 05/16/2024 echo. Discussed with patient. Recommend treating acute presenting issues and can further workup/prepare for possible aortic valve replacement in the outpatient setting. 6. Mitral regurgitation: Nonsevere. 7. Disposition: High cardiac risk. Agree with further evaluation for her significant GI bleed and acute blood loss anemia. Cardiology will continue to follow. Patient care discussed with Dr. Burnham of the primary hospitalist service. Admission and Anticipated Discharge Date Admission Date: May 15, 2024 Subjective Patient was seen earlier this afternoon. She is feeling better in general. She denies shortness of breath however has not been ambulating. She denies chest pain, syncope, near syncope, palpitations. She denies orthopnea and was able to lay flat. She had a large bowel movement yesterday but none as of early this afternoon. She was alone in her hospital room. Physical Exam Physical Exam: Gen.: No acute distress. Alert and oriented. HEENT: Anicteric sclera. Neck: No appreciable JVD. Cardiac: No ventricular heave. Irregularly irregular with normal rate. Normal S1-S2. 2/6 mid peaking systolic ejection murmur heard best at right upper sternal border. No rubs or gallops. Pulmonary: Decreased breath sounds at the bases, but otherwise clear to auscultation bilaterally without wheezes, rales, or rhonchi. Abdomen: Soft, nontender, nondistended, with normoactive bowel sounds. No bruits noted. Extremities: 2+ radial pulses bilaterally. 2+ posterior tibialis pulses bilaterally. 1+ bilateral lower extremity edema to the knees. No cyanosis. Psychiatric: Affect appears appropriate. Results & Data Vital Signs (Past 12 Hours) Vital Signs Temp Pulse Pulse Resp BP Pulse Ox O2 Del Method 05/17/24 10:28 37.0 C 95 H 18 101/73 95 Room Air 05/17/24 08:13 36.8 C 98 H 17 117/73 93 Room Air 05/17/24 08:00 Room Air 05/17/24 07:00 91 H 05/17/24 02:44 36.6 C 94 H 18 103/53 L 94 Room Air Intake & Output 05/15/24 05/16/24 05/17/24 05/18/24 06:59 06:59 06:59 06:59 Intake Total 171 / 171 610 / 610 1220 / 1220 Output Total 1275 / 1275 700 / 700 Balance 171 / 171 -665 / -665 520 / 520 Weight 177 lb 7.554 oz 177 lb 4.026 oz 177 lb 4.026 oz Laboratory Results Laboratory Results - last 24 hr 05/16/24 05/16/24 05/16/24 08:07 08:16 16:14 WBC 9.10 RBC 3.41 L Hgb 8.7 L Hct 27.3 L MCV 80.1 MCH 25.5 MCHC 31.9 L RDW Std Deviation 83.6 H RDW Coeff of Karen 29.7 H Plt Count 279 Absolute Nucleated RBC 0.50 H Nucleated RBC % (auto) 5.5 Neutrophils % (Manual) Lymphocytes % (Manual) Monocytes % (Manual) Eosinophils % (Manual) Basophils % (Manual) Metamyelocytes % (Man) Blast Cells % (Manual) Neutrophils # (Manual) Total Absolute Neuts Lymphocytes # (Manual) Total Abs Lymphocytes Monocytes # (Manual) Eosinophils # (Manual) Basophils # (Manual) Metamyelocytes # (Man) Blast Cells # (Man) Hyposegmented Neuts 2+ Hypogranular Neuts 2+ Polychromasia Poikilocytosis Basophilic Stippling Anisocytosis Echinocytes Acanthocytes (Spur) Schistocytes Haptoglobin Pending Sodium Potassium Chloride Carbon Dioxide Anion Gap BUN Creatinine Est Cr Clr Drug Dosing Est GFR ( Amer) Est GFR (Non-Af Amer) BUN/Creatinine Ratio Glucose Calcium Magnesium Total Bilirubin AST ALT Alkaline Phosphatase Lactate Dehydrogenase Total Protein Albumin Globulin Albumin/Globulin Ratio 05/17/24 06:25 WBC 8.43 RBC 3.12 L Hgb 8.0 L Hct 24.9 L MCV 79.8 L MCH 25.6 MCHC 32.1 RDW Std Deviation 84.8 H RDW Coeff of Karen 30.0 H Plt Count 256 Absolute Nucleated RBC 0.42 H Nucleated RBC % (auto) 5.0 Neutrophils % (Manual) 82 Lymphocytes % (Manual) 7 Monocytes % (Manual) 3 Eosinophils % (Manual) 3 Basophils % (Manual) 1 Metamyelocytes % (Man) 1 Blast Cells % (Manual) 3 Neutrophils # (Manual) 6.91 H Total Absolute Neuts 6.91 H Lymphocytes # (Manual) 0.59 L Total Abs Lymphocytes 0.59 L Monocytes # (Manual) 0.25 Eosinophils # (Manual) 0.25 Basophils # (Manual) 0.08 Metamyelocytes # (Man) 0.08 H Blast Cells # (Man) 0.25 H Hyposegmented Neuts 2+ Hypogranular Neuts 2+ Polychromasia 1+ Poikilocytosis Present Basophilic Stippling 1+ Anisocytosis Present Echinocytes 1+ Acanthocytes (Spur) 2+ Schistocytes 1+ Haptoglobin Sodium 135 L Potassium 3.4 L Chloride 100 Carbon Dioxide 27 Anion Gap 8 BUN 17 Creatinine 0.74 Est Cr Clr Drug Dosing 58.2 Est GFR ( Amer) 88.7 Est GFR (Non-Af Amer) 76.5 BUN/Creatinine Ratio 23.0 H Glucose 133 H Calcium 7.3 L Magnesium 1.7 Total Bilirubin 2.3 H AST 16 ALT 11 Alkaline Phosphatase 85 Lactate Dehydrogenase 154 Total Protein 4.8 L Albumin 2.6 L Globulin 2.2 L Albumin/Globulin Ratio 1.2 Diagnostic Findings Labs reviewed and notable for mild hypokalemia, normal renal function, ongoing anemia. Telemetry personally reviewed: Atrial fibrillation with heart rates mostly in the 90s. GI note reviewed. Hematology note reviewed. Medications Administered Current Inpatient Medications Duloxetine HCl (Duloxetine Hcl 20 Mg Cap) 20 mg PO QAM NATALIA Stop: 06/15/24 08:59 Last Admin: 05/17/24 07:54 Dose: Not Given Pantoprazole Sodium 40 mg/ (Syringe) 10 mls @ 5 mls/min IV BID NATALIA Stop: 06/15/24 08:59 Last Admin: 05/17/24 07:54 Dose: 5 mls/min Metoprolol Tartrate (Metoprolol Tartrate 25 Mg Tab) 25 mg PO Q6H NATALIA Stop: 06/14/24 20:59 Last Admin: 05/17/24 14:55 Dose: 25 mg Multivitamins/Minerals (Cerovite Adv Formula Tab) 1 tab PO DAILY NATALIA Stop: 06/15/24 08:59 Last Admin: 05/17/24 07:54 Dose: Not Given Potassium Chloride (Potassium Chloride Crtab 20 Meq Tabcr) 40 meq PO BID NATALIA Stop: 05/17/24 21:01 Last Admin: 05/17/24 07:55 Dose: Not Given PG Care Time/CCT Total # of Minutes Spent Total Time Spent with Patient: Total time spent is greater than 50% in coordination of care (as documented) at patient's floor/unit and/or counseling patient: Coding Level of Care Code 26164 SUB INP/OBS CARE 3/50MIN Diagnoses Atrial fibrillation I48.91 Heart failure with preserved ejection fraction I50.30 Acute blood loss anemia D62 Pleural effusion J90 Aortic stenosis I35.0 Mitral regurgitation I34.0
--- NOTE | 2024-05-17 14:26 | Hospitalist Progress Note ---
Date of Service May 17, 2024 Assessment & Plan (1) Acute blood loss anemia: Plan: Hgb 14.6 [December 2023] -> 7.9 on admission and then down further to 7.1, microcytic, also with 5% blasts and abnormal peripheral smear-flow cytometry sent and pending, bone marrow aspirate/biopsy planned With intermittent melena over the past few weeks along with epigastric pain- suspect PUD in the setting of taking Eliquis She discontinued her Eliquis at home about 2 weeks ago but is continuing to have small amount of melena here. Stool now brown on AM of 05/17 iron studies are actually elevated but may be falsely elevated in setting of inflammation as per Heme; B12 normal, folate normal, and recent TSH normal Total bilirubin elevated at 2.3 but LDH is normal x 2--> doubt hemolysis, but check haptoglobin. Could be from hepatic congestion from CHF Pantoprazole 80mg IV x 1 was given and continues on pantoprazole 40mg IV BID Consult GI appreciated-held off on EGD until cardiopulmonary issues are optimized-plan for EGD 05/18 Transfused 1 unit PRBCs on 05/16 for hemoglobin 7.1 with hypotension and tachycardia Hgb up to 8.0 Follow CBC in the morning, transfuse as needed Given blast cells-consult hematology (2) GI bleed: Plan: As noted above with melena. Brown stool now on 05/17 Continue to hold Eliquis, transfused as above Continue IV Protonix EGD planned for 05/17 Continue full liquids today, n.p.o. after midnight for EGD tomorrow Check Hemoccult Hypocalcemia-give another 1 gram calcium gluconate which will also help low BPs (3) Atrial fibrillation with rapid ventricular response: Plan: Tachycardia is in part compensatory for acute blood loss anemia but also likely elevated due to stopping her metoprolol Given low normal BP (suspect from Lasix 80 mg IV given in the ER in setting of aortic stenosis) giving lower doses of metoprolol 25mg PO q6h with hold parameters for hypotension (prior dose 100mg PO BID) Was given 2 doses of IV digoxin on 05/15 but not continued Rates are much better controlled now, BPs soft but stable Continue holding anticoagulation due to GI bleed Monitor on telemetry Consult cardiology for further evaluation and treatment appreciated (4) Heart failure with preserved ejection fraction: Plan: Acute on chronic diastolic (congestive) heart failure Secondary to a. fib RVR and aortic stenosis. With large bilateral pleural effusions, 3+ pitting edema of the bilateral lower extremities up to the thighs, and elevated BNP. Fortunately she is not hypoxic She dropped her blood pressure quite low after Lasix 80 Mg IV x 1 given in the ER. Will need to give cautious diuresis with severe aortic stenosis Using a rate control approach with low-dose metoprolol as above, support blood pressure with blood transfusion slowly over 4 hours Gave Lasix 20 Mg IV x 1 after PRBC transfusion and will give another lasix 20mg IV x 1 today-follow BPs Edema improving, no JVD now, no orthopnea, weight has not changed but is net negative ECHO w/ preserved EF 65-70%, no regional WMA's, mild concentric LVH, and now severe aortic stenosis, mild AI, mild pulmonary hypertension with RVSP 44 mmHg, and a large pleural effusion Strict I&Os, Daily weight, low-sodium diet once diet is advanced Consult cardiology appreciated Placed Ivory catheter as she is having difficulty getting up to use the bathroom and for more accurate I's and O's (5) Aortic stenosis: Plan: now is severe on ECHO, with CHF, hypotension in response to higher doses of lasix Defer to cardiology about evaluation for valve replacement given her heart failure but will optimize with rate control first (6) Abnormal CBC: Plan: 5% blasts seen on peripheral smear, pathology suspects myelodysplasia, but less likely could be from stress response Flow cytometry sent out and pending Consult hematology for further evaluation appreciated--> plan for bone marrow bx and aspirate on Tuesday follow CBC (7) Left leg swelling: Plan: US venous doppler -negative swelling is bilat and related to CHF continue diuresis--> improving Plan Chronic medical issues: Peripheral neuropathy-continue duloxetine 20 mg daily which is also for anxiety H/o Breast CA-noted Anxiety-duloxetine VTE Prophylaxis - SCDs, TEDs Disposition -continued stay PCU, PT/OT consults placed but she has been too weak/tired to participate yet. I suspect she will need rehab Admission and Anticipated Discharge Date Admission Date: May 15, 2024 Subjective Pt had a loose brown stool this AM. Denies any further epigastric discomfort. No CP or SOB but has not been very active. Is frustrated about not getting enough protein in her diet and being NPO and then having EGD cancelled. I discussed her care with Oncology as well as Cardiology Tele with Afib, PVCs, rates 90s Physical Exam Constitutional: WD/WN, vitals as above Respiratory: normal respiratory effort and + cough (With deep inspiration) Auscultation: + diminished lung sounds (At the bases bilaterally); no crackles, no rhonchi and no wheezes Cardiovascular: Rate/Rhythm: regular rate and + irregularly irregular Heart Sounds: + murmur (2/6 ENIO at the RUSB) Extremities: + edema (2+ pitting edema of legs/feet bilaterally, much improved) Gastrointestinal (Abdomen): normal bowel sounds, soft, nontender, no hepatosplenomegaly Psychiatric: A+Ox3, euthymic affect Genitourinary: Ivory in place with clear yellow urine Results & Data Results & Data Vital Signs (Past 12 Hours) Vital Signs Temp Pulse Pulse Resp BP Pulse Ox O2 Del Method 05/17/24 10:28 37.0 C 95 H 18 101/73 95 Room Air 05/17/24 08:13 36.8 C 98 H 17 117/73 93 Room Air 05/17/24 08:00 Room Air 05/17/24 07:00 91 H 05/17/24 02:44 36.6 C 94 H 18 103/53 L 94 Room Air Laboratory Results CBC, BMP, magnesium, LFTs, LDH reviewed PG Care Time/CCT Total # of Minutes Spent Total Time Spent with Patient: Total time spent is greater than 50% in coordination of care (as documented) at patient's floor/unit and/or counseling patient: Coding Level of Care Code 97648 SUB INP/OBS CARE 3/50MIN Diagnoses Acute blood loss anemia D62 GI bleed K92.2 Atrial fibrillation with rapid ventricular response I48.91 Heart failure with preserved ejection fraction I50.30 Aortic stenosis I35.0 Abnormal CBC R79.89 Left leg swelling M79.89
[2024-05-18 07:26] LABS: Albumin Level 2.6 gm/dl (3.4-5.0); BUN Creatinine Ratio 18.5 (10-20); Bilirubin Direct 0.8 mg/dl (0-0.2); Bilirubin,Total 2.1 mg/dl (0.2-1.0); Calcium 7.5 mg/dl (8.6-10.3); Creatinine Clr Calc Pharmacy 52.6 ml/min; Est GFR (African American) 79.5 ml/min; Est GFR (Non-African American) 68.6 ml/min; Magnesium 1.8 mg/dl (1.7-2.4); Potassium 3.9 mmol/L (3.5-5.1); Total Protein 4.8 gm/dl (6.0-8.3)
[2024-05-18 07:43] LABS: Hematocrit (blood only) 25.3 % (37.0-47.0); Hemoglobin 8.1 g/dl (12.0-16.0); Mean Corpuscular Hemoglobin 25.8 pg (25.0-34.0); Mean Corpuscular Volume 80.6 fL (80.0-100.0); Nucleated RBC # (auto) 0.44 K/uL (0.00-0.12); Nucleated RBC % (auto) 5.1 %; Platelet Count 228 K/uL (130-400); RDW Coefficient of Variation 29.6 % (11.5-14.5); RDW Standard Deviation 85.2 fL (36.4-46.3); Red Blood Count 3.14 M/uL (4.20-5.40); White Blood Count 8.57 K/ul (4.8-10.8)
[2024-05-18 08:56] LABS: ALC (manual) 1.03 K/uL (1.2-3.4); Acanthocytes 1+; Anisocytosis Present; Basophils # (manual) 0.09 K/uL (0-0.2); Basophils % (manual) 1 %; Blast Cells % (manual) 7 %; Eosinophils # (manual) 0.09 K/uL (0-0.50); Eosinophils % (manual) 1 %; Hypogranular Neutrophils 2+; Lymphocytes # (manual) 1.03 K/uL (1.2-3.4); Lymphocytes % (manual) 12 %; Monocytes # (manual) 0.17 K/uL (0.11-0.59); Monocytes % (manual) 2 %; Neutrophils % (manual) 77 %; Poikilocytosis Present; Polychromasia 1+; Schistocytes 2+; Target Cells 1+
[2024-05-18] MEDS: FUROSEMIDE INJ 20 MG/2 ML VIAL IV ONE (09:08)
--- NOTE | 2024-05-18 09:21 | History & Physical Bridge Note ---
<Statement entered by Shruthi Hager MD - 05/18/24 11:27> I agree with the documentation provided by ANGIE Matthew with no additional comments. Date of Service May 18, 2024 History & Physical Bridge Note I have examined the patient, reviewed the History & Physical and in the interval since the performance of the History & Physical I have noted the following changes of clinical significance: no changes noted Patient is an 78 yo female with anemia & melena that is ongoing. H/H 8.1/25.3. She has been NPO. Plan to proceed with EGD today pending no issues with the anesthesia team.
[2024-05-18] MEDS: SODIUM CHLORIDE 0.9% 500 ML IV SCH (11:19)
--- NOTE | 2024-05-18 12:03 | Anesthesiology Consultation ---
Date of Service May 18, 2024 Assessment & Plan Chart Review Chart Review: Acceptable Risk for Surgery and Patient NOT seen in Pre Admission Testing Consults Requested none ASA ASA4 Proposed Anesthesia Anesthesia Type: MAC Risk / Benefits Reviewed With: PT / POA / Parent / Guardian, Accepts Plan and Informed Consent Obtained History Surgery Operation Date: 05/18/24 16:30 Proposed Procedures p Esophagogastroduodenoscopy Alley - Shruthi Hager MD Height/Weight Height: 5 ft 1 in Weight: 78.7 kg Allergies Allergy/AdvReac Type Severity Reaction Status Date / Time nickel Allergy Intermediate contact Verified 05/18/24 11:02 dermatitis adhesive Allergy Mild skin Verified 05/18/24 11:02 irritation alendronate sodium AdvReac Intermediate myalgias Verified 05/18/24 11:02 Medications Home Medications Medication Instructions Recorded Confirmed Last Taken cholecalciferol (vitamin D3) 25 1,000 unit PO DAILY 10/03/19 05/15/24 Unknown mcg (1,000 unit) tablet metoprolol tartrate 100 mg tablet 100 mg PO BID 02/05/21 05/15/24 Unknown calcium carbonate (Tums) 200 mg PO BID PRN 03/30/22 05/15/24 Unknown HEARTBURN/INDIGESTION apixaban 5 mg tablet (Eliquis) 5 mg PO BID #60 tabs 01/13/24 05/15/24 Unknown denosumab 60 mg/mL subcutaneous 60 mg subcut Q6MO 01/13/24 05/15/24 Unknown syringe (Prolia) acetaminophen 500 mg tablet 500 - 1,000 mg PO Q6H PRN Pain 05/15/24 05/15/24 Unknown (Tylenol Extra Strength) albuterol sulfate 90 mcg/actuation 2 puff inhalation Q4H PRN 05/15/24 05/15/24 Unknown aerosol inhaler WHEEZING, COUGH, SHORT OF BREATH alpha lipoic acid 600 mg capsule 600 mg PO DAILY 05/15/24 05/15/24 Unknown duloxetine 20 mg capsule,delayed 20 mg PO QAM 05/15/24 05/15/24 Unknown release mfyxxbmkuxup-xoabjius-eglwhl tablet 1 tab PO DAILY 05/15/24 05/15/24 Unknown Active Medications Generic Name Dose Route Start Last Admin Trade Name Freq PRN Reason Stop Dose Admin Duloxetine HCl 20 mg 05/16/24 09:00 05/18/24 09:09 Duloxetine Hcl 20 Mg Cap PO 06/15/24 08:59 20 mg QAM NATALIA Administration Pantoprazole Sodium 40 mg/ 10 mls @ 5 mls/min 05/16/24 09:00 05/18/24 09:09 Syringe IV 06/15/24 08:59 5 mls/min BID NATALIA Administration Sodium Chloride 500 mls @ 15 mls/hr 05/18/24 07:30 05/18/24 11:19 Nss IV 05/19/24 07:29 15 mls/hr .Q24H NATALIA Administration Metoprolol Tartrate 25 mg 05/15/24 21:00 05/18/24 09:09 Metoprolol Tartrate 25 Mg Tab PO 06/14/24 20:59 25 mg Q6H NATALIA Administration Multivitamins/Minerals 1 tab 05/16/24 09:00 05/18/24 09:09 Cerovite Adv Formula Tab PO 06/15/24 08:59 1 tab DAILY NATALIA Administration NPO Date Last Intake of Fluids: 05/18/24 Time Last Intake of Fluids: 09:09 Last Intake of Fluids Comment: sip with med Date Last Intake of Solids: 05/17/24 Last Intake of Solids Comment: unknown Exercise / Class Metabolic Activity III < 4 Walking/Shop/Light housework Past Family History Family History Mother Dementia Father Parkinson disease Past Surgical History Surgical History Status post tubal ligation S/P tonsillectomy S/P mastectomy Status post repair of nerve Past Anesthesia History No Hx of Anesthesia Complications and No Family Hx of Anesthesia Complications Social History Smoking Status: Former smoker Smoking cigarettes per day: quit 50 years ago Hx Alcohol Use: No Hx Substance Use: No substance use type: does not use Review of Systems ROS Unobtainable: All systems reviewed & are unremarkable except as noted in HPI & below Physical Exam Vital Signs Last Vital Signs Temp 37.2 C 05/18/24 11:04 Pulse 91 H 05/18/24 11:04 Resp 20 05/18/24 11:04 BP 106/52 L 05/18/24 11:04 Pulse Ox 93 05/18/24 11:04 O2 Del Method Room Air 05/18/24 11:04 ENMT Mouth: no TMJ abnormality Thyromental Distance: > or= 3.5 Finger Breadths Mallampati Class: II Neck normal visual inspection and trachea midline; neck extension not limited Respiratory normal respiratory effort Auscultation: lungs clear to auscultation bilaterally Cardiovascular Rate/Rhythm: regular rate and regular rhythm Heart Sounds: no murmur Musculoskeletal Spine: normal cervical ROM Extremities: full ROM of extremities Neurologic moves all extremities Psychiatric Orientation: alert and oriented x 3 Testing Laboratory Results 05/18/24 06:52 05/18/24 06:52 PT 13.7 Seconds (9.0-12.0) H 05/16/24 08:07 INR 1.3 (0.9-1.1) H 05/16/24 08:07 APTT 30 Seconds (21-31) 05/15/24 14:33 Blood Type O Negative 05/15/24 18:04 Antibody Screen NEGATIVE 05/15/24 18:04 Electrocardiogram Date: 05/15/24 Findings: + AFIB @ (140) Chest X-Ray Date: 05/15/24 IMPRESSION: 1. Cardiomegaly with mild interstitial pulmonary edema and moderate bilateral pleural effusions. 2. Patchy bibasilar densities are nonspecific but may represent atelectasis from the pleural effusions. Echocardiogram Date: 05/16/24 EF: 65-70 LV Function: normal Valvular Disease: + (severe) Stress Test Date: 08/19/23 Type: nuclear Findings: + WNL Resting EF: 65-70
--- NOTE | 2024-05-18 12:47 | GI REPORT ---
[facility] Patient: FLEX CEDILLO : 1945 Sex at : Female Age: 78 Years Procedure: Upper GI endoscopy Date: 05/18/2024 Attending Physician: Shruthi Hager MD Referring MD: Robert Cooper Indications: - Suspected upper gastrointestinal bleeding Medications: - Monitored Anesthesia Care Complications: - No immediate complications. Estimated Blood Loss: - Estimated blood loss was minimal. Procedure: - Prior to the procedure, a History and Physical was performed, and patient medications and allergies were reviewed. The patient's tolerance of previous anesthesia was also reviewed. The risks and benefits of the procedure and the sedation options and risks were discussed with the patient. All questions were answered, and informed consent was obtained. Prior Anticoagulants: The patient has taken Eliquis (apixaban), last dose was 14 days prior to procedure. ASA Grade Assessment: IV - A patient with severe systemic disease that is a constant threat to life. After reviewing the risks and benefits, the patient was deemed in satisfactory condition to undergo the procedure. - The egd scope was introduced through the mouth and advanced to the third part of the duodenum. - The upper GI endoscopy was accomplished without difficulty. - The patient tolerated the procedure well. Findings: - The examined esophagus was normal. - The entire examined stomach was normal. Biopsies were taken with a cold forceps for Helicobacter pylori testing. - Three non-bleeding cratered duodenal ulcers with a clean ulcer base (Eduar Class III) were found in the first portion of the duodenum. The largest lesion was 12 mm in largest dimension. Impression: - Normal esophagus. - Normal stomach. Biopsied. - Non-bleeding duodenal ulcers with a clean ulcer base (Eduar Class III). Recommendation: - Discharge patient to home (ambulatory). - Resume previous diet. - Continue present medications. - Await pathology results. Procedure Code(s): - 11852, Esophagogastroduodenoscopy, flexible, transoral; with biopsy, single or multiple Diagnosis Code(s): - K26.9, Duodenal ulcer, unspecified as acute or chronic, without hemorrhage or perforation CPT(R) - 2022 copyright [employer]. All Rights Reserved. The CPT codes, CCI edits and ICD codes generated are intended as suggestions and were generated based on input data. These codes are preliminary and upon data coder operator review may be revised to meet current compliance and payer requirements. The provider is responsible for the final determination of appropriate codes, and modifiers. Shruthi Hager MD This document has been electronically signed. Note Initiated:05/18/2024 Note Completed:05/18/2024 12:46 PM [id number]
--- NOTE | 2024-05-18 12:52 | Anesthesiology Progress Note ---
Date of Service May 18, 2024 Anesthesia Post Procedure Vital Signs Vital Signs: Temp Pulse Pulse Pulse Resp BP Pulse Ox 05/18/24 12:45 91 H 18 96/53 L 94 05/18/24 11:04 37.2 C 91 H 20 106/52 L 93 05/18/24 10:28 37.1 C 86 18 114/74 93 05/18/24 08:00 92 H 05/18/24 08:00 05/18/24 07:43 37.3 C 103 H 18 96/62 L 94 05/18/24 03:05 37.0 C 97 H 18 103/64 92 05/17/24 23:37 36.9 C 86 18 97/62 L 93 05/17/24 22:12 92 H 05/17/24 20:19 85 102/52 L 05/17/24 19:27 05/17/24 19:16 37.3 C 90 18 99/65 L 94 05/17/24 15:27 83 05/17/24 14:31 37.0 C 82 18 99/59 L 96 Pulse Ox O2 Del Method O2 Del Method 05/18/24 12:45 Room Air 05/18/24 11:04 Room Air 05/18/24 10:28 Room Air 05/18/24 08:00 05/18/24 08:00 Room Air 05/18/24 07:43 Room Air 05/18/24 03:05 Room Air 05/17/24 23:37 Room Air 05/17/24 22:12 05/17/24 20:19 05/17/24 19:27 94 Room Air 05/17/24 19:16 Room Air 05/17/24 15:27 05/17/24 14:31 Room Air Pain Intensity Bilateral Leg: Pain Intensity: 1 Transfer of Care Handoff Completed per policy Notes Mental Status: alert / awake / arousable Patient Amnestic to Procedure: Yes Nausea / Vomiting: adequately controlled Pain: adequately controlled Airway Patency, RR, SpO2: stable & adequate BP & HR: stable & adequate Hydration State: stable & adequate Anesthetic Complications: no major complications apparent and Pt Satisfied with anesthetic care
[2024-05-18] MEDS: LIDOCAINE 2% 2 ML VIAL/AMP(20MG/ML) INFIL ONE (13:35)
[2024-05-18] MEDS: PHENYLEPHRINE 100MCG/ML 10ML SYR IV ONE (13:35)
[2024-05-18] MEDS: PROPOFOL IV EMULSION 10 MG/ML 20 ML VIAL IV ONE (13:35)
--- NOTE | 2024-05-18 14:53 | Cardiology Progress Note ---
Date of Service May 18, 2024 Assessment & Plan (1) Atrial fibrillation: (2) Heart failure with preserved ejection fraction: (3) Acute blood loss anemia: (4) Pleural effusion: (5) Aortic stenosis: (6) Mitral regurgitation: Plan ASSESSMENT/PLAN: 1. Atrial fibrillation with rapid ventricular response: Permanent atrial fibrillation. Tachycardic likely due to the fact that she self discontinued her beta-kong (metoprolol 100 mg twice daily) for the past few weeks, and also acute blood loss anemia. Heart rate reasonably controlled now with resumption of metoprolol tartrate. Heart rate likely to be faster when she becomes mobile. Will increase metoprolol to tartrate to 37.5 mg every 6 hours and can be further titrated to 50 mg every 6 hours or divided twice daily dosing to her usual home dose, as tolerated. Continue beta-kong as tolerated. Anticoagulation therapy is being held due to GI bleed with acute, profound anemia. Would resume anticoagulation therapy when okay from a GI standpoint, and after her bone marrow biopsy on 05/21/2024. 2. Heart failure with preserved EF: Volume status has improved. Still hypervolemic but asymptomatic at rest and no orthopnea. Agree with as needed gentle diuresis. Received Lasix 20 mg IV x 1 today. Try to maintain net negative fluid balance, if blood pressure allows. Low-sodium diet. Daily weights. Strict I's and O's. 3. Hypotension: Blood pressure mostly normotensive and occasionally mildly hypotensive earlier in the day. Asymptomatic in this regard. 4. Acute blood loss anemia from GI bleed: Has received PRBC. Endoscopy demonstrated duodenal ulcers. Hematology following for blasts. 5. Aortic stenosis: Severe aortic stenosis on 05/16/2024 echo. Discussed with patient. Recommend treating acute presenting issues and can further workup/prepare for possible aortic valve replacement in the outpatient setting. 6. Mitral regurgitation: Nonsevere. 7. Disposition: I will be away from the hospital. Please call on-call [employer] teacher, Dr. Eli, for any questions or concerns. Patient was signed out to [facility] [employer]. Patient care discussed with Dr. Cooper of the primary hospitalist service. Follow-up closely in the outpatient cardiology office. Admission and Anticipated Discharge Date Admission Date: May 15, 2024 Subjective Patient was seen this afternoon. All in all, she is feeling better. She denies any significant shortness of breath however she has not been out of bed ambulating. Her cough is decreased. She denies chest pain, palpitations, syncope, near syncope. She has not had any further melena. She underwent EGD earlier today. Her biggest issue now has been intermittent bilateral lower extremity leg cramps. She was unaccompanied. Physical Exam Physical Exam: Gen.: No acute distress. Alert and oriented. HEENT: Anicteric sclera. Neck: No appreciable JVD. Mild hepatojugular reflux. Cardiac: No ventricular heave. Irregularly irregular with normal rate (90s). Normal S1-S2. 2/6 mid peaking systolic ejection murmur heard best at right upper sternal border. No rubs or gallops. Pulmonary: Decreased breath sounds at the bases, but otherwise clear to auscultation bilaterally without wheezes, rales, or rhonchi. Abdomen: Soft, nontender, nondistended, with normoactive bowel sounds. No bruits noted. Extremities: 2+ radial pulses bilaterally. 2+ posterior tibialis pulses bilaterally. 2+ bilateral distal lower extremity edema, and otherwise 1+ lower extremity edema to below the knees. No cyanosis. Psychiatric: Affect appears appropriate. Results & Data Vital Signs (Past 12 Hours) Vital Signs Temp Pulse Pulse Pulse Resp BP BP 05/18/24 14:15 108 H 17 05/18/24 13:45 108 H 4 L 112/72 05/18/24 13:33 109 H 22 104/69 05/18/24 13:15 98 H 16 96/59 L 05/18/24 13:02 88 16 104/55 L 05/18/24 12:45 91 H 18 96/53 L 05/18/24 11:04 37.2 C 91 H 20 106/52 L 05/18/24 10:28 37.1 C 86 18 114/74 05/18/24 08:00 92 H 05/18/24 08:00 05/18/24 07:43 37.3 C 103 H 18 96/62 L 05/18/24 03:05 37.0 C 97 H 18 103/64 Pulse Ox O2 Del Method 05/18/24 14:15 05/18/24 13:45 05/18/24 13:33 93 Room Air 05/18/24 13:15 92 Room Air 05/18/24 13:02 93 Room Air 05/18/24 12:45 94 Room Air 05/18/24 11:04 93 Room Air 05/18/24 10:28 93 Room Air 05/18/24 08:00 05/18/24 08:00 Room Air 05/18/24 07:43 94 Room Air 05/18/24 03:05 92 Room Air Intake & Output 05/16/24 05/17/24 05/18/24 05/19/24 06:59 06:59 06:59 06:59 Intake Total 171 / 171 610 / 610 1270 / 1270 0 / 0 Output Total 1275 / 1275 1050 / 1050 700 / 700 Balance 171 / 171 -665 / -665 220 / 220 -700 / -700 Weight 177 lb 7.554 oz 177 lb 4.026 oz 173 lb 8.061 oz 173 lb 8.061 oz Laboratory Results Laboratory Results - last 24 hr 05/15/24 05/16/24 05/16/24 18:04 08:07 08:16 WBC RBC Hgb Hct MCV MCH MCHC RDW Std Deviation RDW Coeff of Karen Plt Count Absolute Nucleated RBC Nucleated RBC % (auto) Neutrophils % (Manual) Lymphocytes % (Manual) Monocytes % (Manual) Eosinophils % (Manual) Basophils % (Manual) Blast Cells % (Manual) Neutrophils # (Manual) Total Absolute Neuts Lymphocytes # (Manual) Total Abs Lymphocytes Monocytes # (Manual) Eosinophils # (Manual) Basophils # (Manual) Blast Cells # (Man) Hypersegmented Neuts Hyposegmented Neuts Hypogranular Neuts Polychromasia Poikilocytosis Anisocytosis Target Cells Acanthocytes (Spur) Schistocytes Haptoglobin 234 H Sodium Potassium Chloride Carbon Dioxide Anion Gap BUN Creatinine Est Cr Clr Drug Dosing Est GFR ( Amer) Est GFR (Non-Af Amer) BUN/Creatinine Ratio Glucose Calcium Magnesium Total Bilirubin Direct Bilirubin AST ALT Alkaline Phosphatase Total Protein Albumin Flow Cytometry Comment See Comment Direct Antiglob Test RICHARD (IgG-AHG) RICHARD, Polyspecific RICHARD C3b, C3d 5 Min Crossmatch See Detail 05/17/24 05/18/24 17:14 06:52 WBC 8.57 RBC 3.14 L Hgb 8.1 L Hct 25.3 L MCV 80.6 MCH 25.8 MCHC 32.0 RDW Std Deviation 85.2 H RDW Coeff of Karen 29.6 H Plt Count 228 Absolute Nucleated RBC 0.44 H Nucleated RBC % (auto) 5.1 Neutrophils % (Manual) 77 Lymphocytes % (Manual) 12 Monocytes % (Manual) 2 Eosinophils % (Manual) 1 Basophils % (Manual) 1 Blast Cells % (Manual) 7 Neutrophils # (Manual) 6.60 H Total Absolute Neuts 6.60 H Lymphocytes # (Manual) 1.03 L Total Abs Lymphocytes 1.03 L Monocytes # (Manual) 0.17 Eosinophils # (Manual) 0.09 Basophils # (Manual) 0.09 Blast Cells # (Man) 0.60 H Hypersegmented Neuts [employer] Hyposegmented Neuts 2+ Hypogranular Neuts 2+ Polychromasia 1+ Poikilocytosis Present Anisocytosis Present Target Cells 1+ Acanthocytes (Spur) 1+ Schistocytes 2+ Haptoglobin Sodium 135 L Potassium 3.9 Chloride 99 Carbon Dioxide 31 Anion Gap 5 BUN 15 Creatinine 0.81 Est Cr Clr Drug Dosing 52.6 Est GFR ( Amer) 79.5 Est GFR (Non-Af Amer) 68.6 BUN/Creatinine Ratio 18.5 Glucose 135 H Calcium 7.5 L Magnesium 1.8 Total Bilirubin 2.1 H Direct Bilirubin 0.8 H AST 17 ALT 12 Alkaline Phosphatase 94 Total Protein 4.8 L Albumin 2.6 L Flow Cytometry Comment Direct Antiglob Test Negative RICHARD (IgG-AHG) Neg RICHARD, Polyspecific Neg RICHARD C3b, C3d 5 Min Neg Crossmatch Diagnostic Findings EGD report reviewed from 05/18/2024: Normal esophagus. Normal stomach. Nonbleeding duodenal ulcers. Labs reviewed and notable for stable anemia, normal transaminase levels, stable renal function, normal potassium. Telemetry personally reviewed: Atrial fibrillation with heart rate mostly in the 90s at rest. Medications Administered Current Inpatient Medications Duloxetine HCl (Duloxetine Hcl 20 Mg Cap) 20 mg PO QAM NATALIA Stop: 06/15/24 08:59 Last Admin: 05/18/24 09:09 Dose: 20 mg Pantoprazole Sodium 40 mg/ (Syringe) 10 mls @ 5 mls/min IV BID NATALIA Stop: 06/15/24 08:59 Last Admin: 05/18/24 09:09 Dose: 5 mls/min Sodium Chloride (Nss) 500 mls @ 15 mls/hr IV .Q24H NATALIA Stop: 05/19/24 07:29 Last Infusion: 05/18/24 13:42 Dose: Infused Metoprolol Tartrate (Metoprolol Tartrate 25 Mg Tab) 25 mg PO Q6H NATALIA Stop: 06/14/24 20:59 Last Admin: 05/18/24 14:39 Dose: 25 mg Multivitamins/Minerals (Cerovite Adv Formula Tab) 1 tab PO DAILY NATALIA Stop: 06/15/24 08:59 Last Admin: 05/18/24 09:09 Dose: 1 tab PG Care Time/CCT Total # of Minutes Spent Total Time Spent with Patient: Total time spent is greater than 50% in coordination of care (as documented) at patient's floor/unit and/or counseling patient: Coding Level of Care Code 48198 SUB INP/OBS CARE 3/50MIN Diagnoses Atrial fibrillation I48.91 Heart failure with preserved ejection fraction I50.30 Acute blood loss anemia D62 Pleural effusion J90 Aortic stenosis I35.0 Mitral regurgitation I34.0
--- NOTE | 2024-05-18 15:53 | Hospitalist Progress Note ---
Date of Service May 18, 2024 Assessment & Plan (1) Acute blood loss anemia: Plan: Hgb 14.6 [December 2023] -> 7.9 on admission and then down further to 7.1, microcytic, also with 5% blasts and abnormal peripheral smear s/p EGD today with duodenal ulcers x 3 -- most likely cause of recent abd pain & melena stools Iron studies are actually elevated -- ?falsely elevated in setting of inflammation as per Heme B12/folate/TSH wnl Total bilirubin elevated at 2.3 but LDH is normal and haptoglobin is not low Further, KESHA is negative Cont IV PPI twice daily until discharge, then change to PO PPI twice daily at discharge She is s/p 1 unit PRBCs during this admission Repeat CBC am (2) GI bleed: Plan: upper; 2nd to duodenal ulcers (presumed) Cont IV PPI Continue to hold Eliquis CBC in am Advance diet as tolerated (3) Atrial fibrillation with rapid ventricular response: Plan: appreciate cardiology assistance remains on metoprolol - defer dosing to cards holding Eliquis due to #1, #2 cont telemetry (4) Heart failure with preserved ejection fraction: Plan: Acute on chronic diastolic (congestive) heart failure Secondary to a. fib RVR and aortic stenosis. ECHO w/ preserved EF 65-70%, no regional WMA's, mild concentric LVH, and now severe aortic stenosis, mild AI, mild pulmonary hypertension with RVSP 44 mmHg, and a large pleural effusion Gave lasix 20mg IV x 1 again today BMP am Cont BB and defer titration to cardiology Overall volume status has improved nicely (5) Aortic stenosis: Plan: severe will address post-d/c still can hear s2 - thus, not critical (6) Abnormal CBC: Plan: 5% blasts seen on peripheral smear, pathology suspects myelodysplasia, but less likely could be from stress response Flow cytometry sent out and pending Consult hematology for further evaluation appreciated--> plan for bone marrow bx and aspirate on Tuesday05/21/24 follow CBC daily (7) Left leg swelling: Plan: doppler neg for DVT 2nd to #4 cont to improve cont daily diuresis as tolerated (8) Duodenal ulcer: Plan: x 3 -- as seen on EGD today certainly contributed to acute blood loss anemia, abd pain, etc. stomach/esophagus wnl cont IV PPI twice daily until d/c then switch to PO PPI thereafter tolerated full liquids; advance diet to regular (ok with GI) await biopsies from EGD today to r/o H Pylori Plan Chronic medical issues: Peripheral neuropathy-continue duloxetine 20 mg daily which is also for anxiety H/o Breast CA Anxiety-duloxetine VTE Prophylaxis - SCDs, TEDs; Eliquis on hold due to GI bleeding PT/OT when able rehab post-d/c ?? care d/w cardiology care d/w GI via [place] correspondence Admission and Anticipated Discharge Date Admission Date: May 15, 2024 Subjective saw patient following her EGD was resting comfortably flat in bed denied any dyspnea or orthopnea at rest no abd pain no overt GI bleeding tolerated full liquids following her EGD - requests advancement tele - a.fib Review of Systems Review of Systems: gen - feeling better than when she got admitted cv - no chest pain; no PND; no orthopnea pulm - no cough GI - no N/V musculo - having pain over the right hip; also with "oscar horses" of both legs overnight Physical Exam Physical Exam: gen - NAD, pleasant skin - generalized pallor neck - no JVD heart - irregularly irregular, s1 s2, 2-3/6 holosystolic murmur RUSB (still can hear s2) lungs - decreased BS bases, o/w CTA b/l abd - soft NT ND BS+; no HSM ext - 1+ edema b/l (pitting), pulses 2+ b/l feet psych - a/o x 3 musculo - tender over trochanteric bursa right hip with palpation Results & Data Results & Data Vital Signs (Past 12 Hours) Vital Signs Temp Pulse Pulse Pulse Resp BP BP 05/18/24 14:15 108 H 17 05/18/24 13:45 108 H 4 L 112/72 05/18/24 13:33 109 H 22 104/69 05/18/24 13:15 98 H 16 96/59 L 05/18/24 13:02 88 16 104/55 L 05/18/24 12:45 91 H 18 96/53 L 05/18/24 11:04 37.2 C 91 H 20 106/52 L 05/18/24 10:28 37.1 C 86 18 114/74 05/18/24 08:00 92 H 05/18/24 08:00 05/18/24 07:43 37.3 C 103 H 18 96/62 L Pulse Ox O2 Del Method 05/18/24 14:15 05/18/24 13:45 05/18/24 13:33 93 Room Air 05/18/24 13:15 92 Room Air 05/18/24 13:02 93 Room Air 05/18/24 12:45 94 Room Air 05/18/24 11:04 93 Room Air 05/18/24 10:28 93 Room Air 05/18/24 08:00 05/18/24 08:00 Room Air 05/18/24 07:43 94 Room Air Laboratory Results Laboratory Results - last 48 hr 05/15/24 05/16/24 05/16/24 18:04 08:07 08:16 WBC RBC Hgb Hct MCV MCH MCHC RDW Std Deviation RDW Coeff of Karen Plt Count Absolute Nucleated RBC Nucleated RBC % (auto) Neutrophils % (Manual) Lymphocytes % (Manual) Monocytes % (Manual) Eosinophils % (Manual) Basophils % (Manual) Blast Cells % (Manual) Neutrophils # (Manual) Total Absolute Neuts Lymphocytes # (Manual) Total Abs Lymphocytes Monocytes # (Manual) Eosinophils # (Manual) Basophils # (Manual) Blast Cells # (Man) Hypersegmented Neuts Hyposegmented Neuts Hypogranular Neuts Polychromasia Poikilocytosis Anisocytosis Target Cells Tear Drop Cells Ovalocytes Acanthocytes (Spur) Schistocytes Haptoglobin 234 H Sodium Potassium Chloride Carbon Dioxide Anion Gap BUN Creatinine Est Cr Clr Drug Dosing Est GFR ( Amer) Est GFR (Non-Af Amer) BUN/Creatinine Ratio Glucose Calcium Magnesium Total Bilirubin Direct Bilirubin AST ALT Alkaline Phosphatase Total Protein Albumin Stool Occult Bld Scrn Flow Cytometry Comment See Comment Direct Antiglob Test RICHARD (IgG-AHG) RICHARD, Polyspecific RICHARD C3b, C3d 5 Min Crossmatch See Detail 05/17/24 05/18/24 05/18/24 17:14 06:52 17:15 WBC 8.57 RBC 3.14 L Hgb 8.1 L Hct 25.3 L MCV 80.6 MCH 25.8 MCHC 32.0 RDW Std Deviation 85.2 H RDW Coeff of Karen 29.6 H Plt Count 228 Absolute Nucleated RBC 0.44 H Nucleated RBC % (auto) 5.1 Neutrophils % (Manual) 77 Lymphocytes % (Manual) 12 Monocytes % (Manual) 2 Eosinophils % (Manual) 1 Basophils % (Manual) 1 Blast Cells % (Manual) 7 Neutrophils # (Manual) 6.60 H Total Absolute Neuts 6.60 H Lymphocytes # (Manual) 1.03 L Total Abs Lymphocytes 1.03 L Monocytes # (Manual) 0.17 Eosinophils # (Manual) 0.09 Basophils # (Manual) 0.09 Blast Cells # (Man) 0.60 H Hypersegmented Neuts THROW OUT CLERK Hyposegmented Neuts 2+ Hypogranular Neuts 2+ Polychromasia 1+ Poikilocytosis Present Anisocytosis Present Target Cells 1+ Tear Drop Cells Ovalocytes Acanthocytes (Spur) 1+ Schistocytes 2+ Haptoglobin Sodium 135 L Potassium 3.9 Chloride 99 Carbon Dioxide 31 Anion Gap 5 BUN 15 Creatinine 0.81 Est Cr Clr Drug Dosing 52.6 Est GFR ( Amer) 79.5 Est GFR (Non-Af Amer) 68.6 BUN/Creatinine Ratio 18.5 Glucose 135 H Calcium 7.5 L Magnesium 1.8 Total Bilirubin 2.1 H Direct Bilirubin 0.8 H AST 17 ALT 12 Alkaline Phosphatase 94 Total Protein 4.8 L Albumin 2.6 L Stool Occult Bld Scrn Negative Flow Cytometry Comment Direct Antiglob Test Negative RICHARD (IgG-AHG) Neg RICHARD, Polyspecific Neg RICHARD C3b, C3d 5 Min Neg Crossmatch PG Care Time/CCT Total # of Minutes Spent Total Time Spent with Patient: Total time spent is greater than 50% in coordination of care (as documented) at patient's floor/unit and/or counseling patient: Coding Level of Care Code 20693 SUB INP/OBS CARE 3/50MIN Diagnoses Acute blood loss anemia D62 GI bleed K92.2 Atrial fibrillation with rapid ventricular response I48.91 Heart failure with preserved ejection fraction I50.30 Aortic stenosis I35.0 Abnormal CBC R79.89 Left leg swelling M79.89 Duodenal ulcer K26.9
[2024-05-18] MEDS: METOPROLOL TARTRATE 25 MG TAB PO SCH (21:21)
[2024-05-19 07:54] LABS: BUN Creatinine Ratio 17.9 (10-20); Calcium 7.6 mg/dl (8.6-10.3); Creatinine Clr Calc Pharmacy 50.7 ml/min; Est GFR (African American) 76.1 ml/min; Est GFR (Non-African American) 65.6 ml/min; Potassium 3.6 mmol/L (3.5-5.1)
[2024-05-19 08:35] LABS: ALC (manual) 1.03 K/uL (1.2-3.4); ANC (manual) 5.59 K/uL (1.4-6.5); Acanthocytes 1+; Anisocytosis Present; Blast # (manual) 0.15 K/uL (0-0); Blast Cells % (manual) 2 %; Eosinophils # (manual) 0.29 K/uL (0-0.50); Eosinophils % (manual) 4 %; Hematocrit (blood only) 23.8 % (37.0-47.0); Hemoglobin 7.4 g/dl (12.0-16.0); Lymphocytes # (manual) 1.03 K/uL (1.2-3.4); Lymphocytes % (manual) 14 %; Mean Corpuscular Hemoglobin 25.1 pg (25.0-34.0); Mean Corpuscular Hgb Conc 31.1 g/dL (32.0-36.0); Mean Corpuscular Volume 80.7 fL (80.0-100.0); Monocytes # (manual) 0.29 K/uL (0.11-0.59); Monocytes % (manual) 4 %; Neutrophils # (manual) 5.59 K/uL (1.40-6.50); Neutrophils % (manual) 76 %; Nucleated RBC # (auto) 0.27 K/uL (0.00-0.12); Nucleated RBC % (auto) 3.7 %; Ovalocytes 1+; Platelet Count 205 K/uL (130-400); Poikilocytosis Present; Polychromasia 3+; RDW Coefficient of Variation 29.3 % (11.5-14.5); RDW Standard Deviation 84.6 fL (36.4-46.3); Red Blood Count 2.95 M/uL (4.20-5.40); Tear Drop Cells 1+; White Blood Count 7.35 K/ul (4.8-10.8)
[2024-05-19] MEDS: POTASSIUM CHLORIDE CRTAB 20 MEQ TABCR PO STA (08:55)
[2024-05-19] MEDS: FUROSEMIDE INJ 20 MG/2 ML VIAL IV ONE (08:55)
[2024-05-19 15:14] LABS: Hematocrit (blood only) 25.8 % (37.0-47.0); Hemoglobin 8.2 g/dl (12.0-16.0)
--- NOTE | 2024-05-19 16:51 | Hospitalist Progress Note ---
Date of Service May 19, 2024 Assessment & Plan (1) Acute blood loss anemia: Plan: Hgb 14.6 [December 2023] -> 7.9 on admission and then down further to 7.1, microcytic, also with 5% blasts and abnormal peripheral smear s/p EGD 05/18/24 with duodenal ulcers x 3 -- most likely cause of recent abd pain & melena stools Iron studies are actually elevated -- ?falsely elevated in setting of inflammation as per Heme B12/folate/TSH wnl Total bilirubin elevated at 2.3 but LDH is normal and haptoglobin is not low Further, KESHA is negative Cont IV PPI twice daily until discharge, then change to PO PPI twice daily at discharge She is s/p 1 unit PRBCs during this admission Repeat CBC today -- H/H fluctuating, but the levels are oscillating around a baseline Hb of ~8 stable CBC in am (2) GI bleed: Plan: upper; likely 2nd to duodenal ulcers Cont IV PPI Continue to hold Eliquis CBC stable Diet as tolerated Repeat CBC am (3) Atrial fibrillation with rapid ventricular response: Plan: appreciate cardiology assistance remains on metoprolol - rates acceptable on metoprolol tartrate 37.5mg q6h holding Eliquis due to #1, #2 cont telemetry (4) Heart failure with preserved ejection fraction: Plan: Acute on chronic diastolic (congestive) heart failure Secondary to a. fib RVR and aortic stenosis. ECHO w/ preserved EF 65-70%, no regional WMA's, mild concentric LVH, and now severe aortic stenosis, mild AI, mild pulmonary hypertension with RVSP 44 mmHg, and a large pleural effusion Gave lasix 20mg IV x 1 again today then suspect we can switch to PO lasix tomrorow BMP am Cont BB Overall volume status has improved nicely Some of her LE edema likely also due to hypoalbuminemia (5) Aortic stenosis: Plan: severe will address post-d/c still can hear s2 - thus, not critical (6) Abnormal CBC: Plan: 5% blasts seen on peripheral smear, pathology suspects myelodysplasia, but less likely could be from stress response Flow cytometry sent out and pending Heme/onc consult appreciated plan for bone marrow bx and aspirate on Tuesday05/21/24 follow CBC daily (7) Left leg swelling: Plan: doppler neg for DVT 2nd to #4 cont to improve cont daily diuresis as tolerated low albumin, in addition to CHF, also contributing to edema TSH was normal in December 2023 (8) Duodenal ulcer: Plan: x 3 -- as seen on EGD 05/18/24 certainly contributed to acute blood loss anemia, abd pain, etc. stomach/esophagus wnl cont IV PPI twice daily until d/c then switch to PO PPI thereafter await biopsies from EGD today to r/o H Pylori cont diet as tolerated (9) Phlebitis: Plan: right AC region (cephalic vein likely) probably 2-3cm in length clinically, but will obtain doppler to r/o more proximal extension in meantime - elevate arm, warm compresses, resume Eliquis when stable from GI standpoint to reduce changes of propagation (10) Bladder pain: Plan: d/c henry - we do not need it at this point can use purewick if needed once henry is removed send fresh urine for u/a and urine cx - r/o UTI Rx as needed Plan Chronic medical issues: Peripheral neuropathy-continue duloxetine 20 mg daily which is also for anxiety H/o Breast CA Anxiety-duloxetine VTE Prophylaxis - SCDs, TEDs; Eliquis on hold due to recent GI bleeding PT/OT when able rehab post-d/c ?? Admission and Anticipated Discharge Date Admission Date: May 15, 2024 Subjective patient c/o right antecubital pain starting a few days ago after having had an IV in that region red, swollen, painful denies orthopnea denies dyspnea at rest she is having "burning" in her bladder asks about possible UTI she is willing to have her henry d/c in [place] [facility] denies abd pain stools have been brown eating is fair at best denies any other new complaints tele - a.fib Review of Systems Review of Systems: gen - no fevers cv - no chest pain; LE edema has improved pulm - no dyspnea at rest; no PND/orthopnea GI - no N/V Physical Exam Physical Exam: gen - NAD, pleasant, laying in bed comfortably skin - generalized pallor neck - no JVD heart - irregularly irregular, s1 s2, 2-3/6 holosystolic murmur RUSB (still can hear s2) lungs - decreased BS bases, o/w CTA b/l; no rales or wheeze abd - soft NT ND BS+; no HSM ext - 1+ edema b/l, pulses 2+ b/l feet psych - a/o x 3 musculo - non-tender over trochanteric bursa right hip with palpation vascular - right antecubital region - cephalic vein with evidence of phlebitis, about 2-3cm in length; red, swelling, tenderness over this region; none of those findings track more proximally into the biceps region Results & Data Results & Data Vital Signs (Past 12 Hours) Vital Signs Temp Pulse Pulse Resp BP Pulse Ox O2 Del Method 05/19/24 14:55 37.3 C 83 18 96/65 L 94 Room Air 05/19/24 12:16 36.4 C L 80 15 105/69 95 Room Air 05/19/24 08:33 36.4 C L 101 H 15 103/67 94 Room Air 05/19/24 08:00 Room Air 05/19/24 08:00 91 H Laboratory Results Laboratory Results - last 24 hr 05/18/24 05/19/24 05/19/24 17:15 07:11 14:52 WBC 7.35 RBC 2.95 L Hgb 7.4 L 8.2 L Hct 23.8 L 25.8 L MCV 80.7 MCH 25.1 MCHC 31.1 L RDW Std Deviation 84.6 H RDW Coeff of Karen 29.3 H Plt Count 205 Absolute Nucleated RBC 0.27 H Nucleated RBC % (auto) 3.7 Neutrophils % (Manual) 76 Lymphocytes % (Manual) 14 Monocytes % (Manual) 4 Eosinophils % (Manual) 4 Blast Cells % (Manual) 2 Neutrophils # (Manual) 5.59 Total Absolute Neuts 5.59 Lymphocytes # (Manual) 1.03 L Total Abs Lymphocytes 1.03 L Monocytes # (Manual) 0.29 Eosinophils # (Manual) 0.29 Blast Cells # (Man) 0.15 H Polychromasia 3+ Poikilocytosis Present Anisocytosis Present Tear Drop Cells 1+ Ovalocytes 1+ Acanthocytes (Spur) 1+ Sodium 135 L Potassium 3.6 Chloride 100 Carbon Dioxide 30 Anion Gap 5 BUN 15 Creatinine 0.84 Est Cr Clr Drug Dosing 50.7 Est GFR ( Amer) 76.1 Est GFR (Non-Af Amer) 65.6 BUN/Creatinine Ratio 17.9 Glucose 157 H Calcium 7.6 L Stool Occult Bld Scrn Negative PG Care Time/CCT Total # of Minutes Spent Total Time Spent with Patient: Total time spent is greater than 50% in coordination of care (as documented) at patient's floor/unit and/or counseling patient: Coding Level of Care Code 38606 SUB INP/OBS CARE 3/50MIN Diagnoses Acute blood loss anemia D62 GI bleed K92.2 Atrial fibrillation with rapid ventricular response I48.91 Heart failure with preserved ejection fraction I50.30 Aortic stenosis I35.0 Abnormal CBC R79.89 Left leg swelling M79.89 Duodenal ulcer K26.9 Phlebitis I80.9 Bladder pain R39.89
[2024-05-19 23:18] LABS: Appearance Urine Turbid (Clear); Bacteria Urine Automated None Seen (None Seen); Bilirubin Urine 1+ (Negative); Blood Urine 3+ (Negative); Cast Urine Automated 0-2 /lpf (0-2); Color Urine Dark Yellow; Epithelial Cell Urine Auto 0-2 /hpf (0-2); Glucose Urine UA Negative (Negative); Ketones Urine Trace (Negative); Leukocyte Esterase Urine Trace (Negative); Nitrite Urine Negative (Negative); Protein Urine 1+ (Negative); Specific Gravity Urine 1.024 (1.000-1.030); Urobilinogen Urine Positive (Negative); pH Urine 5.5 (4.5-7.5)
[2024-05-20] MEDS: ACETAMINOPHEN 325 MG TAB PO PRN (07:00)
[2024-05-20 07:55] LABS: Albumin Level 2.6 gm/dl (3.4-5.0); BUN Creatinine Ratio 21.3 (10-20); Bilirubin,Total 1.5 mg/dl (0.2-1.0); Calcium 7.6 mg/dl (8.6-10.3); Creatinine Clr Calc Pharmacy 56.7 ml/min; Est GFR (African American) 87.3 ml/min; Est GFR (Non-African American) 75.3 ml/min; Globulin 2.7 gm/dl (2.5-4.0); Potassium 3.9 mmol/L (3.5-5.1); Total Protein 5.3 gm/dl (6.0-8.3)
--- NOTE | 2024-05-20 08:02 | Ultrasound Report ---
RIGHT UPPER EXTREMITY VENOUS DOPPLER HISTORY: phlebitis, right antecubital region; eval DVT COMPARISON STUDY: None. FINDINGS: The right internal jugular vein is patent. There is normal flow within the right subclavian vein. There is normal flow and compressibility within the right axillary, basilic, brachial, radial, and ulnar veins. Occlusive thrombus within the cephalic pain branch of the cephalic vein at the ante cubital fossa. This measures approximately 2 cm in length.. IMPRESSION: 1. No DVT within the right upper extremity. 2. Superficial thrombus within the right cephalic vein. ACT 112: Negative or not required by law. Electronically signed by: Elvis Link M.D. 05/20/2024 8:01 AM
[2024-05-20 08:10] LABS: Hematocrit (blood only) 25.8 % (37.0-47.0); Mean Corpuscular Hemoglobin 25.2 pg (25.0-34.0); Mean Corpuscular Volume 81.1 fL (80.0-100.0); Nucleated RBC # (auto) 0.32 K/uL (0.00-0.12); Nucleated RBC % (auto) 4.6 %; Platelet Count 208 K/uL (130-400); RDW Coefficient of Variation 29.2 % (11.5-14.5); RDW Standard Deviation 83.7 fL (36.4-46.3); Red Blood Count 3.18 M/uL (4.20-5.40); White Blood Count 7.01 K/ul (4.8-10.8)
[2024-05-20] MEDS: FUROSEMIDE 20 MG TAB PO SCH (09:29)
[2024-05-20] MEDS: cefTRIAXone SODIUM 2,000 MG/50 ML BAG IV SCH (09:29)
--- NOTE | 2024-05-20 11:10 | History & Physical Bridge Note ---
Date of Service May 20, 2024 History & Physical Bridge Note Duodenal ulcers explain melena but concern remains for multifactorial anemia with bone marrow biopsy planned in the near future. As long as patient being treated with BID PPI, there is no GI contraindication to resumption of anti- coagulation with close monitoring.
[2024-05-20] MEDS: METOPROLOL TARTRATE 50 MG TAB PO SCH (13:47)
--- NOTE | 2024-05-20 15:16 | Hospitalist Progress Note ---
Date of Service May 20, 2024 Assessment & Plan (1) Abnormal findings on diagnostic imaging of gall bladder: Plan: patient with enlarged gall bladder on CT a/p along with gall bladder wall thickening & some mild pericholecystic fluid these findings, coupled with her low-grade temp this am, abd pain on exam, nausea, lack of appetite, etc are all concerning for brewing cholecystitis will obtain RUQ u/s urgently this evening was already on rocephin for possible UTI will add flagyl for anaerobic coverage will downgrade diet to clear liquids urine output has been poor all day will add gentle IV fluids re-eval in am (2) Acute blood loss anemia: Plan: Hgb 14.6 [December 2023] -> 7.9 on admission and then down further to 7.1, microcytic, also with 5% blasts and abnormal peripheral smear s/p EGD 05/18/24 with duodenal ulcers x 3 -- most likely cause of recent abd pain & melena stools Iron studies were actually elevated -- ?falsely elevated in setting of inflammation as per Heme B12/folate/TSH wnl Total bilirubin elevated at 2.3 but LDH is normal and haptoglobin is not low Further, KESHA was negative Cont IV PPI twice daily until discharge, then change to PO PPI twice daily at discharge She is s/p 1 unit PRBCs during this admission Repeat CBC today -- Hb about 8 - stable CBC in am (3) GI bleed: Plan: upper; likely 2nd to duodenal ulcers Cont IV PPI Continue to hold Eliquis CBC stable this am Repeat CBC am (4) Atrial fibrillation with rapid ventricular response: Plan: appreciate cardiology assistance remains on metoprolol - rates not optimal thus increase metoprolol tartrate to 50mg q6h holding Eliquis due to #1, #2 cont telemetry (5) Heart failure with preserved ejection fraction: Plan: Acute on chronic diastolic (congestive) heart failure Secondary to a. fib RVR and aortic stenosis. ECHO w/ preserved EF 65-70%, no regional WMA's, mild concentric LVH, and now severe aortic stenosis, mild AI, mild pulmonary hypertension with RVSP 44 mmHg, and a large pleural effusion Cont BB Overall volume status has improved nicely Does have some mild LE edema and still with pleural effusions but urine output today has been poor Suspect some element of intra-vascular volume depletion despite the 3rd spacing Hold lasix starting tomorrow am (6) Aortic stenosis: Plan: severe will address post-d/c (7) Abnormal CBC: Plan: 5% blasts seen on peripheral smear, pathology suspects myelodysplasia, but less likely could be from stress response Flow cytometry sent out and pending Heme/onc consult appreciated plan was for bone marrow bx and aspirate on Tuesday05/21/24 but this may be delayed due to #1 follow CBC daily (8) Duodenal ulcer: Plan: x 3 -- as seen on EGD 05/18/24 certainly contributed to acute blood loss anemia, abd pain, etc. stomach/esophagus wnl cont IV PPI twice daily until d/c then switch to PO PPI thereafter await biopsies from EGD today to r/o H Pylori downgrading diet to clears due to #1 (9) Phlebitis: Plan: right cephalic vein small amount RUE doppler did not show more proximal extension or DVT in meantime - elevate arm, warm compresses, resume Eliquis when stable from GI standpoint to reduce changes of propagation Plan ?UTI - added rocephin 2gm IV daily while awaiting urine cx Chronic medical issues: Peripheral neuropathy-continue duloxetine 20 mg daily which is also for anxiety H/o Breast CA Anxiety-duloxetine VTE Prophylaxis - SCDs, TEDs; Eliquis on hold due to recent GI bleeding PT/OT when able patient remains quite complicated and ill updated pt's son by phone this evening Admission and Anticipated Discharge Date Admission Date: May 15, 2024 Subjective tele - a.fib, rates at rest about 100 or low 100s occasional 90-100 patient reports that sometime overnight she developed a pressure/discomfort in the upper abdomen just below the sternum radiating to the middle of her back this pain is different that her pain she had been having from her duodenal ulcers at home, and different from an intermittent low back pain she gets from time to time she has no appetite she has nausea had temp of 37.7 this am no dysuria feels weak, fatigued did have mild dyspnea at rest earlier this am as well Review of Systems Review of Systems: gen - no energy, exhausted, laying in bed most of the day cv - no chest pain, no orthopnea; edema improved pulm - episode of dyspnea this am GI - no vomiting, no diarrhea Physical Exam Physical Exam: gen - NAD, looks very tired, laying flat in bed skin - generalized pallor neck - no JVD mouth - MM dry heart - irregularly irregular, s1 s2, 2-3/6 holosystolic murmur RUSB, rate > 100 lungs - decreased BS bases, o/w CTA b/l; no rales or wheeze abd - soft ND BS+; no HSM; very tender high epigastric region in the midline ext - <1+ edema RLE, trace edema LLE; pulses 2+ b/l feet psych - a/o x 3 vascular - right antecubital region - cephalic vein with evidence of phlebitis - improved Results & Data Results & Data Vital Signs (Past 12 Hours) Vital Signs Temp Pulse Pulse Resp BP Pulse Ox O2 Del Method 05/20/24 11:47 36.3 C L 100 H 20 114/59 L 96 Room Air 05/20/24 08:00 Room Air 05/20/24 07:57 80 05/20/24 07:43 37.7 C H 82 18 112/64 95 Room Air Laboratory Results Laboratory Results - last 24 hr 05/19/24 05/20/24 Unknown 07:12 WBC 7.01 RBC 3.18 L Hgb 8.0 L Hct 25.8 L MCV 81.1 MCH 25.2 MCHC 31.0 L RDW Std Deviation 83.7 H RDW Coeff of Karen 29.2 H Plt Count 208 Absolute Nucleated RBC 0.32 H Nucleated RBC % (auto) 4.6 Sodium 134 L Potassium 3.9 Chloride 99 Carbon Dioxide 28 Anion Gap 7 BUN 16 Creatinine 0.75 Est Cr Clr Drug Dosing 56.7 Est GFR ( Amer) 87.3 Est GFR (Non-Af Amer) 75.3 BUN/Creatinine Ratio 21.3 H Glucose 150 H Calcium 7.6 L Total Bilirubin 1.5 H AST 19 ALT 13 Alkaline Phosphatase 99 Total Protein 5.3 L Albumin 2.6 L Globulin 2.7 Albumin/Globulin Ratio 1.0 Urine Color Dark Yellow Urine Appearance Turbid A Urine pH 5.5 Ur Specific [place] 1.024 Urine Protein 1+ H Urine Glucose (UA) Negative Urine Ketones Trace H Urine Blood 3+ H Urine Nitrite Negative Urine Bilirubin 1+ H Urine Urobilinogen Positive H Ur Leukocyte Esterase Trace H Urine WBC (Auto) 6-10 H Urine RBC (Auto) 6-10 H U Hyaline Cast (Auto) 0-2 U Epithel Cells (Auto) 0-2 Urine Bacteria (Auto) None Seen Diagnostic Findings Venous Doppler Study 05/19/24 16:51 RIGHT UPPER EXTREMITY VENOUS DOPPLER HISTORY: phlebitis, right antecubital region; eval DVT COMPARISON STUDY: None. FINDINGS: The right internal jugular vein is patent. There is normal flow within the right subclavian vein. There is normal flow and compressibility within the right axillary, basilic, brachial, radial, and ulnar veins. Occlusive thrombus within the cephalic pain branch of the cephalic vein at the antecubital fossa. This measures approximately 2 cm in length.. IMPRESSION: 1. No DVT within the right upper extremity. 2. Superficial thrombus within the right cephalic vein. ACT 112: Negative or not required by law. Electronically signed by: Elvis Link M.D. 05/20/2024 8:01 AM Abdomen/Pelvis CT 05/20/24 15:[address] WITH IV CONTRAST CT DOSE: 1166.96 mGy.cm HISTORY: upper abdominal pain, recent duodenal ulcers TECHNIQUE: Multiaxial CT images of the abdomen and pelvis were performed following the use of intravenous contrast. A dose lowering technique was utilized adhering to the principles of ALARA. COMPARISON STUDY: Chest CTA 05/15/2024. FINDINGS: Moderate to large bilateral pleural effusions with compressive atelectasis of the left lower lobe and partial compressive atelectasis of the right lower lobe are not significant changed. No pneumoperitoneum. No pneumatosis. Posterior decompression noted within the lower lumbar spine. No acute fractures. Moderate body wall edema. There is a 5.8 cm fluid collection lateral to the right greater trochanter. This favors a trochanteric bursitis. The pancreas, spleen, and kidneys enhance normally. No hydronephrosis. Possible 3 mm stone within the left kidney on image 142. No ureteral stones. No hydronephrosis. The main portal vein is patent. Mild calcified plaque within the normal caliber abdominal aorta. Mild nodular thickening of the adrenal glands. Mild thickening of the gallbladder wall with trace pericholecystic fluid. There is heterogeneous enhancement within the adjacent liver. Therefore, this could represent an acute cholecystitis or adjacent hepatic disease. Subtle hyperdense foci within the left posterior bladder could be due to small bladder calculi. No bladder wall thickening. The uterus and bilateral adnexa are unremarkable. Mild presacral edema is noted. Colonic diverticulosis. No evidence for acute diverticulitis. No bowel wall thickening or obstruction. Normal appendix. IMPRESSION: 1. Moderate to large bilateral pleural effusions again noted. 2. No bowel wall thickening or obstruction. 3. Colonic diverticulosis. No evidence for acute diverticulitis. 4. Moderate body wall edema. 5. Left-sided nephrolithiasis. No ureteral stones. No hydronephrosis. There may be a few punctate bladder calculi noted. 6. Mild thickening of the gallbladder wall with trace pericholecystic fluid. There is heterogeneous enhancement within the adjacent liver. Therefore, this could represent an acute cholecystitis or adjacent hepatocellular disease. Clinical correlation recommended. 7. Additional findings as described above. ACT 112: Negative or not required by law. Electronically signed by: Elvis Link M.D. 05/20/2024 7:01 PM PG Care Time/CCT Total # of Minutes Spent Total Time Spent with Patient: Total time spent is greater than 50% in coordination of care (as documented) at patient's floor/unit and/or counseling patient: Coding Level of Care Code 04611 SUB INP/OBS CARE 3/50MIN Diagnoses Abnormal findings on diagnostic imaging of gall bladder R93.2 Acute blood loss anemia D62 GI bleed K92.2 Atrial fibrillation with rapid ventricular response I48.91 Heart failure with preserved ejection fraction I50.30 Aortic stenosis I35.0 Abnormal CBC R79.89 Duodenal ulcer K26.9 Phlebitis I80.9
[2024-05-20] MEDS: FAMOTIDINE 20MG IV PUSH 20 MG/5 ML SYR IV STA (15:35)
[2024-05-20] MEDS: OPTIRAY 320 100ml IV ONE (16:15)
[2024-05-20] MEDS: HYDROCODONE/ACETAMOPHEN 5/325MG TAB PO PRN (16:53)
[2024-05-20] MEDS: SUCRALFATE 1 GM/10 ML UDC PO SCH (16:53)
--- NOTE | 2024-05-20 19:04 | CT Scan Report ---
ABDOMEN AND PELVIS CT WITH IV CONTRAST CT DOSE: 1166.96 mGy.cm HISTORY: upper abdominal pain, recent duodenal ulcers TECHNIQUE: Multiaxial CT images of the abdomen and pelvis were performed following the use of intrave nous contrast. A dose lowering technique was utilized adhering to the principles of ALARA. COMPARISON STUDY: Chest CTA 05/15/2024. FINDINGS: Moderate to large bilateral pleural effusions with compressive atelectasis of the left lowe r lobe and partial compressive atelectasis of the right lower lobe are not significant changed. No pn eumoperitoneum. No pneumatosis. Posterior decompression noted within the lower lumbar spine. No acute fractures. Moderate body wall edema. There is a 5.8 cm fluid collection lateral to the right greater trochanter. This favors a trochanteric bursitis. The pancreas, spleen, and kidneys enhance normally. No hydronephrosis. Possible 3 mm stone within the left kidney on image 142. No ureteral stones. No h ydronephrosis. The main portal vein is patent. Mild calcified plaque within the normal caliber abdomi nal aorta. Mild nodular thickening of the adrenal glands. Mild thickening of the gallbladder wall wit h trace pericholecystic fluid. There is heterogeneous enhancement within the adjacent liver. Therefor e, this could represent an acute cholecystitis or adjacent hepatic disease. Subtle hyperdense foci wi thin the left posterior bladder could be due to small bladder calculi. No bladder wall thickening. Th e uterus and bilateral adnexa are unremarkable. Mild presacral edema is noted. Colonic diverticulosis . No evidence for acute diverticulitis. No bowel wall thickening or obstruction. Normal appendix. IMPRESSION: 1. Moderate to large bilateral pleural effusions again noted. 2. No bowel wall thickening or obstruction. 3. Colonic diverticulosis. No evidence for acute diverticulitis. 4. Moderate body wall edema. 5. Left-sided nephrolithiasis. No ureteral stones. No hydronephrosis. There may be a few punctate sabino dder calculi noted. 6. Mild thickening of the gallbladder wall with trace pericholecystic fluid. There is heterogeneous e nhancement within the adjacent liver. Therefore, this could represent an acute cholecystitis or adjac ent hepatocellular disease. Clinical correlation recommended. 7. Additional findings as described above. ACT 112: Negative or not required by law. Electronically signed by: Elvis Link M.D. 05/20/2024 7:01 PM
[2024-05-20] MEDS: metroNIDAZOLE 500 MG/100 ML BAG IV SCH (20:14)
[2024-05-20] MEDS: SODIUM CHLORIDE 0.9% 1,000 ML IV SCH (20:14)
--- NOTE | 2024-05-21 02:10 | Ultrasound Report ---
Exam(s): US GALLBLADDER EXAM: US Abdomen Limited, Gallbladder CLINICAL HISTORY: Reason for exam: ?cholecystitis?. TECHNIQUE: Real-time ultrasound of the right upper quadrant with image documentation. COMPARISON: No relevant prior studies available. FINDINGS: Liver: The liver size is normal measuring 14.5 cm. Possible mild fatty infiltration. No focal liver lesion is seen. The hepatic veins are patent. The portal vein is patent with normal hepatopetal flow. Gallbladder: The gallbladder is fully distended but nondilated and approximately 60% filled with sludge layering dependently. No shadowing stones are identified. The gallbladder wall is slightly thickened measuring 3-4 mm. There is a trace amount of surrounding fluid identified. Common bile duct: The common bile duct is nondilated measuring 4 mm. Pancreas: The pancreas is obscured by bowel gas. Inferior vena cava: The IVC is unremarkable. Pleural space: There is a small to moderate right pleural effusion. IMPRESSION: 1. There is a small to moderate right pleural effusion. 2. The gallbladder is fully distended but nondilated and approximately 60% filled with sludge layering dependently. No shadowing stones are identified. The gallbladder wall is slightly thickened measuring 3-4 mm. There is a trace amount of pericholecystic fluid. Sonographic Chun sign cannot be assessed due to recent pain medication. Electronically signed by: Chinmay Rocha MD 05/21/24 02:09 AM
[2024-05-21 06:41] LABS: Albumin Level 2.6 gm/dl (3.4-5.0); BUN Creatinine Ratio 20.6 (10-20); Bilirubin Direct 0.8 mg/dl (0-0.2); Bilirubin,Total 1.7 mg/dl (0.2-1.0); Calcium 7.5 mg/dl (8.6-10.3); Creatinine Clr Calc Pharmacy 66.8 ml/min; Est GFR (African American) 98.2 ml/min; Est GFR (Non-African American) 84.7 ml/min; Total Protein 5.3 gm/dl (6.0-8.3)
[2024-05-21 07:11] LABS: Hemoglobin 8.2 g/dl (12.0-16.0); Mean Corpuscular Hemoglobin 25.3 pg (25.0-34.0); Mean Corpuscular Hgb Conc 31.5 g/dL (32.0-36.0); Mean Corpuscular Volume 80.2 fL (80.0-100.0); Nucleated RBC # (auto) 0.32 K/uL (0.00-0.12); Nucleated RBC % (auto) 4.1 %; Platelet Count 218 K/uL (130-400); Platelet Estimate Normal (Normal); RDW Coefficient of Variation 29.1 % (11.5-14.5); RDW Standard Deviation 84.6 fL (36.4-46.3); Red Blood Count 3.24 M/uL (4.20-5.40)
[2024-05-21 08:04] LABS: Hypogranular Neutrophils 2+
[2024-05-21] MEDS: MoRPHine SULFATE 2 MG/ML CARP ONE (13:03)
--- NOTE | 2024-05-21 14:08 | Nuclear Medicine Report ---
NUCLEAR HEPATOBILIARY SCAN CLINICAL HISTORY: Upper abdominal pain. COMPARISON STUDY: Abdominal CT and ultrasound dated 05/20/2024. TECHNIQUE: Dynamic images of the liver and anterior abdomen were obtained every 5 minutes for a total of 60 minutes following the IV administration of 5.5 mCi of technetium 99m Mebrofenin. The gallbladd er isn't visualized at 60 minutes. 2 mg of IV morphine was administered, with additional imaging perf ormed every 5 minutes for an additional 30 minutes. FINDINGS: The hepatobiliary scan shows prompt and homogeneous hepatic uptake. There is visualized act ivity within the intra and extrahepatic biliary tree at 10 minutes. There is normal biliary to bowel transit, with small bowel visualized by 15 minutes. The gallbladder was not visualized at 60 minutes . The gallbladder was also not seen at 90 minutes following morphine administration. IMPRESSION: Scintigraphic findings are consistent with acute cholecystitis. ACT 112: Negative or not required by law. Electronically signed by: Robert Mcallister M.D. 05/21/2024 2:07 PM
--- NOTE | 2024-05-21 15:43 | Hospitalist Progress Note ---
Date of Service May 21, 2024 Assessment & Plan (1) Acute cholecystitis: Plan: CT a/p, RUQ u/s, and HIDA scan all suggestive of acute cholecystitis. RUQ u/s shows enlarged GB with significant sludge. patient with tenderness over her gall bladder, recent fever (AM 05/20), mildly elevated bilirubin, poor appetite, nausea, back pain - all suggestive of acute cholecystitis as well. day #2 of rocephin/flagyl IV. remains NPO. isotonic IVF continues. general surgery consult appreciated. at this time she is a poor surgical candidate given her history including recent decompensated CHF, rapid a.fib, severe , recent duodenal ulcers with bleeding, anemia, and ?bone marrow disorder. general surgery advising MRCP to exclude choledocholithiasis or sludge in the CBD. I agree with such. even if MRCP is negative IR cholecystostomy tube placement may be the best near- term option, vs IV/PO abx. will await MRCP results. repeat LFTs in am. (2) Acute blood loss anemia: Plan: Hgb 14.6 [December 2023] -> 7.9 on admission and then down further to 7.1, microcytic, also with 5% blasts and abnormal peripheral smear s/p EGD 05/18/24 with duodenal ulcers x 3 -- most likely cause of recent abd pain & melena stools Iron studies were actually elevated -- ?falsely elevated in setting of inflammation as per Heme B12/folate/TSH wnl Total bilirubin elevated at 2.3 but LDH is normal and haptoglobin is not low Further, KESHA was negative Cont IV PPI twice daily until discharge, then change to PO PPI twice daily at discharge She is s/p 1 unit PRBCs during this admission Repeat CBC today stable See #7 below CBC in am (3) GI bleed: Plan: upper; likely 2nd to duodenal ulcers Cont IV PPI Continue to hold Eliquis CBC stable this am once again Repeat CBC am (4) Atrial fibrillation with rapid ventricular response: Plan: appreciate cardiology assistance remains on metoprolol tartrate 50mg q6h - rates at goal with such ultimately change to meto succinate in the future holding Eliquis due to recent GI bleeding/anemia, and now concerns for acute cholecystitis cont telemetry (5) Heart failure with preserved ejection fraction: Plan: Acute on chronic diastolic congestive heart failure Secondary to a. fib RVR and aortic stenosis. ECHO w/ preserved EF 65-70%, no regional WMA's, mild concentric LVH, and now severe aortic stenosis, mild AI, mild pulmonary hypertension with RVSP 44 mmHg, and a large pleural effusion Cont metoprolol tartrate 50mg q6h; ultimately change tartrate to succinate Overall volume status has improved nicely Does have some residual mild LE edema and still with pleural effusions However, with ongoing diuretics over the weekend, she had little urine output This was likely due to poor po intake and intravascular volume depletion in the setting of her brewing acute cholecystitis She is now on IVF due to NPO status -- need to watch volume status carefully; at risk of 3rd spacing due to hypoalbuminemia (6) Aortic stenosis: Plan: severe will likely address post-d/c [facility] to manage (7) Abnormal CBC: Plan: 5% blasts seen on peripheral smear - pathology suspects myelodysplasia, but less likely could be from stress response Flow cytometry returned suspicious for myeloid neoplasm or "evolving AML" Heme/onc consult appreciated plan was for bone marrow bx and aspirate today, but I corresponded with Mr Scott Allen from IR and I recommended cancellation of the BMBx due to #1 above CBC today with stable cell lines including her hemoglobin repeat CBC in am (8) Duodenal ulcer: Plan: x 3 -- as seen on EGD 05/18/24 certainly contributed to acute blood loss anemia, abd pain, etc. stomach/esophagus wnl cont IV PPI twice daily until d/c then switch to PO PPI thereafter biopsies from EGD negative for H Pylori is NPO due to #1 above (9) Phlebitis: Plan: right cephalic vein small amount RUE doppler did not show more proximal extension or DVT elevate arm, warm compresses, resume Eliquis when stable from GI standpoint to reduce chances of propagation Plan Chronic medical issues: Peripheral neuropathy-continue duloxetine 20 mg daily H/o Breast CA Anxiety-duloxetine VTE Prophylaxis - SCDs, TEDs; Eliquis on hold due to recent GI bleeding; since H/H remain stable and there have been no signs of recurrent bleeding consider, at least, SC heparin for DVT proph Hold off today since she could potentially need an IR procedure tomorrow PT/OT when able updated pt's son Quincy by phone on 05/20 and 05/21 care d/w general surgery Admission and Anticipated Discharge Date Admission Date: May 15, 2024 Subjective tele overnight - a.fib, most rates <100 she continues to have mild pain over the upper abdomen slightly better than yesterday no vomiting remains very tired Review of Systems Review of Systems: gen - no fevers or chills cv - no chest pain, no orthopnea pulm - no dyspnea at rest GI - ongoing lingering nausea Physical Exam Physical Exam: gen - NAD, laying comfortably in bed; does look a little better today skin - generalized pallor unchanged neck - no JVD mouth - MM more moist today heart - irregularly irregular, s1 s2, 2-3/6 holosystolic murmur RUSB, rate > 100 lungs - decreased BS bases, o/w CTA b/l; no rales or wheeze abd - soft ND BS+; no HSM; ongoing tenderness high epigastric region in the midline; ?palpable gall bladder/fullness? ext - <1+ edema b/l; pulses 2+ b/l feet psych - a/o x 3 vascular - right antecubital region - cephalic vein with evidence of phlebitis - unchanged (2-3cm in length) Results & Data Results & Data Vital Signs (Past 12 Hours) Vital Signs Temp Pulse Pulse Resp BP Pulse Ox O2 Del Method 05/21/24 15:21 36.8 C 90 18 103/57 L 97 Room Air 05/21/24 08:01 37.0 C 96 H 20 123/81 98 Room Air 05/21/24 08:00 Room Air 05/21/24 08:00 90 Laboratory Results Laboratory Results - last 24 hr 05/19/24 05/21/24 07:11 05:51 WBC 7.90 RBC 3.24 L Hgb 8.2 L Hct 26.0 L MCV 80.2 MCH 25.3 MCHC 31.5 L RDW Std Deviation 84.6 H RDW Coeff of Karen 29.1 H Plt Count 218 Absolute Nucleated RBC 0.32 H Nucleated RBC % (auto) 4.1 Hyposegmented Neuts 2+ Hypogranular Neuts 2+ Platelet Estimate Normal Sodium 134 L Potassium 4.0 Chloride 100 Carbon Dioxide 27 Anion Gap 7 BUN 13 Creatinine 0.63 Est Cr Clr Drug Dosing 66.8 Est GFR ( Amer) 98.2 Est GFR (Non-Af Amer) 84.7 BUN/Creatinine Ratio 20.6 H Glucose 129 H Calcium 7.5 L Total Bilirubin 1.7 H Direct Bilirubin 0.8 H AST 18 ALT 13 Alkaline Phosphatase 103 Total Protein 5.3 L Albumin 2.6 L Diagnostic Findings Gallbladder Ultrasound 05/20/24 19:06 Exam(s): US GALLBLADDER EXAM: US Abdomen Limited, Gallbladder CLINICAL HISTORY: Reason for exam: ?cholecystitis?. TECHNIQUE: Real-time ultrasound of the right upper quadrant with image documentation. COMPARISON: No relevant prior studies available. FINDINGS: Liver: The liver size is normal measuring 14.5 cm. Possible mild fatty infiltration. No focal liver lesion is seen. The hepatic veins are patent. The portal vein is patent with normal hepatopetal flow. Gallbladder: The gallbladder is fully distended but nondilated and approximately 60% filled with sludge layering dependently. No shadowing stones are identified. The gallbladder wall is slightly thickened measuring 3-4 mm. There is a trace amount of surrounding fluid identified. Common bile duct: The common bile duct is nondilated measuring 4 mm. Pancreas: The pancreas is obscured by bowel gas. Inferior vena cava: The IVC is unremarkable. Pleural space: There is a small to moderate right pleural effusion. IMPRESSION: 1. There is a small to moderate right pleural effusion. 2. The gallbladder is fully distended but nondilated and approximately 60% filled with sludge layering dependently. No shadowing stones are identified. The gallbladder wall is slightly thickened measuring 3-4 mm. There is a trace amount of pericholecystic fluid. Sonographic Chun sign cannot be assessed due to recent pain medication. Electronically signed by: Chinmay Rocha MD 05/21/24 02:09 AM Hepatobiliary Scan Nuclear Medicine 05/21/24 07:48 NUCLEAR HEPATOBILIARY SCAN CLINICAL HISTORY: Upper abdominal pain. COMPARISON STUDY: Abdominal CT and ultrasound dated 05/20/2024. TECHNIQUE: Dynamic images of the liver and anterior abdomen were obtained every 5 minutes for a total of 60 minutes following the IV administration of 5.5 mCi of technetium 99m Mebrofenin. The gallbladder isn't visualized at 60 minutes. 2 mg of IV morphine was administered, with additional imaging performed every 5 minutes for an additional 30 minutes. FINDINGS: The hepatobiliary scan shows prompt and homogeneous hepatic uptake. There is visualized activity within the intra and extrahepatic biliary tree at 10 minutes. There is normal biliary to bowel transit, with small bowel visualized by 15 minutes. The gallbladder was not visualized at 60 minutes. The gallbladder was also not seen at 90 minutes following morphine administration. IMPRESSION: Scintigraphic findings are consistent with acute cholecystitis. ACT 112: Negative or not required by law. Electronically signed by: Robert Mcallister M.D. 05/21/2024 2:07 PM PG Care Time/CCT Total # of Minutes Spent Total Time Spent with Patient: Total time spent is greater than 50% in coordination of care (as documented) at patient's floor/unit and/or counseling patient: Coding Level of Care Code 80113 SUB INP/OBS CARE 3/50MIN Diagnoses Acute cholecystitis K81.0 Acute blood loss anemia D62 GI bleed K92.2 Atrial fibrillation with rapid ventricular response I48.91 Heart failure with preserved ejection fraction I50.30 Aortic stenosis I35.0 Abnormal CBC R79.89 Duodenal ulcer K26.9 Phlebitis I80.9
--- NOTE | 2024-05-21 15:58 | Surgery Consultation ---
<Statement entered by Florentino Garcia, - 05/21/24 17:00> I have discussed this case with the surgical PA and I agree with the plan. Date of Consultation May 21, 2024 Assessment & Plan (1) Abnormal findings on diagnostic imaging of gall bladder: This is an 78yF with a PMH of heart failure with preserved EF, afib was on eliquis, ADD, breast ca, polyneuropathy, depression/anxiety who presented to the [facility] ED on 05/15/24 with complaints of a cough and shortness of breath. We have been consulted for abdominal pain which upon workup is concerning for acute cholecystitis. Imaging reveals a distended gallbladder with some GB wall thickening, trace fluid, and sludge. And has a HIDA performed today concerning for + acute heriberto. Workup here also showing severe aortic stenosis on recent echo with plans for possible valve replacement at some point, findings on peripheral smear concerning for MDS awaiting bone marrow biopsy, and + non bleeding duodenal ulcers found on EGD. Patient is vague when describing her abdominal pain as she has been having some intermittent pain and nausea over the last month that resolves with tums. She has had low appetite in general over the last month. Today patient reports feeling okay at rest, but does have pain with movement in her abdomen and to palpation in the epigastric and RUQ regions. Vitals are stable and patient is afebrile. Today WBC 7.9, Hbg 8.2. Patient with elevated Tb of 1.7 (2.5 on admission), AST 18, ALT 13, AlkP 103. She is currently on IV ceftriaxone and flagyl. Patient is at increased cardiac risk for surgery given her severe , would appreciate cardiology input, but consideration to valve replacement should be discussed prior to performing cholecystectomy. She also reports poor exercise tolerance over the last month. In the meantime we will order an MRCP for further evaluation given sludge filled gallbladder with elevated LFTs. We will see how patient fairs on IV abx and check up on her tomorrow. She may be a candidate for temporizing her cholecystitis with abx vs possible percutaneous cholecystostomy tube. We will follow along closely, but no plans for surgery at this time. Will keep NPO at midnight in case we consider IR drainage of gallbladder tomorrow. History of Present Illness Attending Physician: Robert Cooper MD History of Present Illness This is an 78yF with a PMH of heart failure with preserved EF, afib was on eliquis, ADD, breast ca, polyneuropathy, depression/anxiety who presented to the [facility] ED on 05/15/24 with complaints of a cough and shortness of breath. Patient states she has been having a cough over the last month or so that has progressively gotten worse. She also describes SOB that has been worsening and states she was setting up chairs in her house to take a break from walking place to place due to fatigue and SOB. She also reports a history of nighttime abdominal pain that she was concerned was an ulcer and stopped taking her siobhan juhi over the last 3-5 weeks. She states she purchased TUMS and when she takes the TUMS her pain does get better. She also has had some intermittent nausea over the last month with 1-2 episodes of vomiting. She says she really has only eaten applesauce over the last several weeks as nothing else has been appetizing to her. She reports some history of pain with fatty/greasy/spicy foods. We have been consulted today as patient has intermittent upper abdominal discomfort and HIDA scan + for cholecystitis. Prior to this she underwent a CT a/p that showed mild thickening of the gallbladder wall with trace pericholecystic fluid. Therefore, this could represent an acute cholecystitis or adjacent hepatocellular disease. RUQ US showed a fully distended gallbladder that is non dilated and 60% sludge filled with the wall measuring 3-4mm. There is tract fluid. No stones. Today patient denies pain at rest, but is aware of it with movement and palpation. She reports some intermittent nausea. Says her diet has been up and backed down due to procedures. She currently denies CP, fevers/chills. She has not been OOB since admission. She is aware of her severe stenosis seen on echo and reports she is aware of discussions for future valve replacement but nothing has been scheduled to this point. PSH on abdomen consists of a tubal ligation. Allergies Allergy/AdvReac Type Severity Reaction Status Date / Time nickel Allergy Intermediate contact Verified 05/18/24 11:02 dermatitis adhesive Allergy Mild skin Verified 05/18/24 11:02 irritation alendronate sodium AdvReac Intermediate myalgias Verified 05/18/24 11:02 Home Medications Medication Instructions Recorded Confirmed Type cholecalciferol (vitamin D3) 25 1,000 unit PO DAILY 10/03/19 05/15/24 History mcg (1,000 unit) tablet metoprolol tartrate 100 mg tablet 100 mg PO BID 02/05/21 05/15/24 History calcium carbonate (Tums) 200 mg PO BID PRN 03/30/22 05/15/24 History HEARTBURN/INDIGESTION apixaban 5 mg tablet (Eliquis) 5 mg PO BID #60 tabs 01/13/24 05/15/24 Rx denosumab 60 mg/mL subcutaneous 60 mg subcut Q6MO 01/13/24 05/15/24 History syringe (Prolia) acetaminophen 500 mg tablet 500 - 1,000 mg PO Q6H PRN Pain 05/15/24 05/15/24 History (Tylenol Extra Strength) albuterol sulfate 90 mcg/actuation 2 puff inhalation Q4H PRN 05/15/24 05/15/24 History aerosol inhaler WHEEZING, COUGH, SHORT OF BREATH alpha lipoic acid 600 mg capsule 600 mg PO DAILY 05/15/24 05/15/24 History duloxetine 20 mg capsule,delayed 20 mg PO QAM 05/15/24 05/15/24 History release jzwcrpuoryng-szmlijni-seojtr tablet 1 tab PO DAILY 05/15/24 05/15/24 History Patient History Surgical History Status post tubal ligation S/P tonsillectomy S/P mastectomy Status post repair of nerve Family History Mother Dementia Father Parkinson disease Social History Smoking Status: Former smoker Tobacco Type: Cigarettes Cigarettes Per Day: quit 50 years ago; Hx Alcohol Use: No Hx Substance Use: No Preferred Language: Mongolian Communication Ability: Effective Icing Maker Required: No Beliefs That Will Affect Care: None Current Living Situation: Alone Current Living Situation Comment: pt has been weak past 2-3 weeks - has had difficulty getting around house Other Information That Helps Us Care for You: No (pt has a dog named Acosta - someone able to take care for only couple days) Feels Safe at Home: Yes Safety Concerns: Feels Safe At This Time Assistive Devices: None Review of Systems Constitutional: no fever and no chills Respiratory: + dyspnea Cardiovascular: no chest pain Gastrointestinal: + abdominal pain, + nausea and + problem reported (dark/green stools); no vomiting Physical Exam Physical Exam: awake, alert, no distress Respiratory: normal respiratory effort on room air Cardiovascular: Rate/Rhythm: regular rate Gastrointestinal (Abdomen): Inspection/Auscultation: abdomen not distended Percussion/Palpation: + abdomen tender (ttp in epigastric and RUQ) and abdomen soft Results & Data Vital Signs (Past 12 Hours) Vital Signs Temp Pulse Pulse Resp BP Pulse Ox O2 Del Method 05/21/24 15:21 98.2 F 90 18 103/57 L 97 Room Air 05/21/24 08:01 98.6 F 96 H 20 123/81 98 Room Air 05/21/24 08:00 Room Air 05/21/24 08:00 90 Diagnostic Findings ABDOMEN AND PELVIS CT WITH IV CONTRAST CT DOSE: 1166.96 mGy.cm HISTORY: upper abdominal pain, recent duodenal ulcers TECHNIQUE: Multiaxial CT images of the abdomen and pelvis were performed following the use of intravenous contrast. A dose lowering technique was utilized adhering to the principles of ALARA. COMPARISON STUDY: Chest CTA 05/15/2024. FINDINGS: Moderate to large bilateral pleural effusions with compressive atelectasis of the left lower lobe and partial compressive atelectasis of the right lower lobe are not significant changed. No pneumoperitoneum. No pneumatosis. Posterior decompression noted within the lower lumbar spine. No acute fractures. Moderate body wall edema. There is a 5.8 cm fluid collection lateral to the right greater trochanter. This favors a trochanteric bursitis. The pancreas, spleen, and kidneys enhance normally. No hydronephrosis. Possible 3 mm stone within the left kidney on image 142. No ureteral stones. No hydronephrosis. The main portal vein is patent. Mild calcified plaque within the normal caliber abdominal aorta. Mild nodular thickening of the adrenal glands. Mild thickening of the gallbladder wall with trace pericholecystic fluid. There is heterogeneous enhancement within the adjacent liver. Therefore, this could represent an acute cholecystitis or adjacent hepatic disease. Subtle hyperdense foci within the left posterior bladder could be due to small bladder calculi. No bladder wall thickening. The uterus and bilateral adnexa are unremarkable. Mild presacral edema is noted. Colonic diverticulosis. No evidence for acute diverticulitis. No bowel wall thickening or obstruction. Normal appendix. IMPRESSION: 1. Moderate to large bilateral pleural effusions again noted. 2. No bowel wall thickening or obstruction. 3. Colonic diverticulosis. No evidence for acute diverticulitis. 4. Moderate body wall edema. 5. Left-sided nephrolithiasis. No ureteral stones. No hydronephrosis. There may be a few punctate bladder calculi noted. 6. Mild thickening of the gallbladder wall with trace pericholecystic fluid. There is heterogeneous enhancement within the adjacent liver. Therefore, this could represent an acute cholecystitis or adjacent hepatocellular disease. Clinical correlation recommended. 7. Additional findings as described above ACT 112: Negative or not required by law. Electronically signed by: Elvis Link M.D. 05/20/2024 7:01 PM Exam(s): US GALLBLADDER EXAM: US Abdomen Limited, Gallbladder CLINICAL HISTORY: Reason for exam: ?cholecystitis?. TECHNIQUE: Real-time ultrasound of the right upper quadrant with image documentation. COMPARISON: No relevant prior studies available. FINDINGS: Liver: The liver size is normal measuring 14.5 cm. Possible mild fatty infiltration. No focal liver lesion is seen. The hepatic veins are patent. The portal vein is patent with normal hepatopetal flow. Gallbladder: The gallbladder is fully distended but nondilated and approximately 60% filled with sludge layering dependently. No shadowing stones are identified. The gallbladder wall is slightly thickened measuring 3-4 mm. There is a trace amount of surrounding fluid identified. Common bile duct: The common bile duct is nondilated measuring 4 mm. Pancreas: The pancreas is obscured by bowel gas. Inferior vena cava: The IVC is unremarkable. Pleural space: There is a small to moderate right pleural effusion. IMPRESSION: 1. There is a small to moderate right pleural effusion. 2. The gallbladder is fully distended but nondilated and approximately 60% filled with sludge layering dependently. No shadowing stones are identified. The gallbladder wall is slightly thickened measuring 3-4 mm. There is a trace amount of pericholecystic fluid. Sonographic Chun sign cannot be assessed due to recent pain medication. Electronically signed by: Chinmay Rocha MD 05/21/24 02:09 AM NUCLEAR HEPATOBILIARY SCAN CLINICAL HISTORY: Upper abdominal pain. COMPARISON STUDY: Abdominal CT and ultrasound dated 05/20/2024. TECHNIQUE: Dynamic images of the liver and anterior abdomen were obtained every 5 minutes for a total of 60 minutes following the IV administration of 5.5 mCi of technetium 99m Mebrofenin. The gallbladder isn't visualized at 60 minutes. 2 mg of IV morphine was administered, with additional imaging performed every 5 minutes for an additional 30 minutes. FINDINGS: The hepatobiliary scan shows prompt and homogeneous hepatic uptake. There is visualized activity within the intra and extrahepatic biliary tree at 10 minutes. There is normal biliary to bowel transit, with small bowel visualized by 15 minutes. The gallbladder was not visualized at 60 minutes. The gallbladder was also not seen at 90 minutes following morphine administration. IMPRESSION: Scintigraphic findings are consistent with acute cholecystitis. ACT 112: Negative or not required by law. Electronically signed by: Robert Mcallister M.D. 05/21/2024 2:07 PM PG Care Time/CCT Total # of Minutes Spent Total Time Spent with Patient: Total time spent is greater than 50% in coordination of care (as documented) at patient's floor/unit and/or counseling patient: Coding Level of Care Code 26396 INT INP/OBS CARE 2/55MIN Diagnoses Abnormal findings on diagnostic imaging of gall bladder R93.2
--- NOTE | 2024-05-21 16:09 | Cardiology Progress Note ---
Date of Service May 21, 2024 Assessment & Plan (1) Atrial fibrillation: (2) Heart failure with preserved ejection fraction: (3) Acute blood loss anemia: (4) Pleural effusion: (5) Aortic stenosis: (6) Mitral regurgitation: Plan ASSESSMENT/PLAN: 1. Atrial fibrillation with rapid ventricular response: Permanent atrial fibrillation. Tachycardic likely due to the fact that she self discontinued her beta-kong (metoprolol 100 mg twice daily) for the past few weeks, and also acute blood loss anemia. Heart rate reasonably controlled now with resumption of metoprolol tartrate. Heart rate likely to be faster when she becomes mobile. Metoprolol tartrate 50 mg every 6 hours or divided twice daily dosing to her usual home dose, as tolerated. Continue beta-kong as tolerated. Anticoagulation therapy is being held due to GI bleed with acute, profound anemia. Would resume anticoagulation therapy when okay from a GI standpoint. 2. Heart failure with preserved EF: Volume status is improving. Still hypervolemic but asymptomatic at rest and no orthopnea. Edema is improving. Agree with as needed gentle diuresis. She has not received any today. Would consider Lasix 20 mg daily vs PRN on discharge. Try to maintain net negative fluid balance, if blood pressure allows. Low-sodium diet. Daily weights. Strict I's and O's. Currently with possible UTI- hold off on SGLT2i for now. Can revisit as outpatient. We discussed the heart failure program today and she is agreeable to enrollment and ongoing participation after discharge. 3. Hypotension: Blood pressure mostly normotensive and occasionally mildly hypotensive earlier in the day. Asymptomatic in this regard. 4. Acute blood loss anemia from GI bleed: Has received PRBC. Endoscopy demonstrated duodenal ulcers. Hematology following for blasts. 5. Aortic stenosis: Severe aortic stenosis on 05/16/2024 echo. Discussed with patient. Recommend treating acute presenting issues and can further workup/prepare for possible aortic valve replacement in the outpatient setting. 6. Mitral regurgitation: Nonsevere. 7. Disposition: Please call on-call supervisor component assembler, Dr. Eli, for any questions or concerns. Follow up with the heart failure program within 7 days of discharge. Admission and Anticipated Discharge Date Admission Date: May 15, 2024 Subjective Patient reports she's feeling somewhat better. She admits she has not been exerting herself in anyway but is not having shortness of breath at rest. Her edema is improving but still noted, more so on the left. She slept well with her head slightly elevated. Denies PND. She continues to have abdominal pain. She denies chest pain, tightness, syncope or near syncope. Fluid balance is neutral. Weight is trending down. Physical Exam Physical Exam: Gen.: No acute distress. Alert and oriented. HEENT: Anicteric sclera. Neck: No appreciable JVD. Mild hepatojugular reflux. Cardiac: No ventricular heave. Irregularly irregular with normal rate (90s). Normal S1-S2. 2/6 mid peaking systolic ejection murmur heard best at right upper sternal border. No rubs or gallops. Pulmonary: Decreased breath sounds at the bases, but otherwise clear to auscultation bilaterally without wheezes, rales, or rhonchi. Abdomen: Soft, nontender, nondistended, with normoactive bowel sounds. No bruits noted. Extremities: 2+ radial pulses bilaterally. 2+ posterior tibialis pulses bilaterally. 1-2+ bilateral distal lower extremity edema, 2+ pedal edema on the L. No cyanosis. Psychiatric: Affect appears appropriate. Results & Data Vital Signs (Past 12 Hours) Vital Signs Temp Pulse Pulse Resp BP Pulse Ox O2 Del Method 05/21/24 15:21 98.2 F 90 18 103/57 L 97 Room Air 05/21/24 08:01 98.6 F 96 H 20 123/81 98 Room Air 05/21/24 08:00 Room Air 05/21/24 08:00 90 PG Care Time/CCT Total # of Minutes Spent Total Time Spent with Patient: Total time spent is greater than 50% in coordination of care (as documented) at patient's floor/unit and/or counseling patient: Coding Level of Care Code 18740 SUB INP/OBS CARE 3/50MIN Diagnoses Atrial fibrillation I48.91 Heart failure with preserved ejection fraction I50.30 Acute blood loss anemia D62 Pleural effusion J90 Aortic stenosis I35.0 Mitral regurgitation I34.0 Heart Failure Data/Metrics Heart Failure Type: HFpEF (EF > 50%) Ejection Fraction: 65-70% SGLT-2 Inhibitor Therapy SGLT-2 Inhibitor Therapy: Contraindicated SGLT-2 Inhibitor Contraindications: Other (UTI)
--- NOTE | 2024-05-22 03:24 | Magnetic Resonance Report ---
Exam(s): MRI MRCP EXAM: MR Abdomen Without Intravenous Contrast, MRCP Protocol CLINICAL HISTORY: Reason for exam: eval elevated LFTs. TECHNIQUE: Multiplanar magnetic resonance images of the abdomen without intravenous contrast using MRCP protocol. Mild to moderate motion artifact. COMPARISON: Gallbladder ultrasound and CT abdomen pelvis 05/20/24. FINDINGS: Lung bases: Stable large bilateral pleural effusions and underlying consolidation. Bile ducts: Severely distended with wall thickening/pericholecystic fluid, nonspecific, cannot rule out acute, acalculus cholecystitis. Gallbladder: Moderate distention and debris/sludge, in keeping with ultrasound. No stones. Liver: Fatty. Pancreas: Unremarkable. No ductal dilation. Spleen: Unremarkable. No splenomegaly. Adrenals: Unremarkable. No mass. Kidneys and ureters: Unremarkable. No hydronephrosis. Other: Stable anasarca. IMPRESSION: 1. Severely distended with pericholecystic fluid and sludge, nonspecific, cannot rule out acute, acalculus cholecystitis. 2. No cholelithiasis or choledocholithiasis. 3. Stable bilateral pleural effusions and infiltrates. Electronically signed by: Aleat Pinto M.D. 05/22/24 03:23 AM
[2024-05-22 07:02] LABS: Hematocrit (blood only) 23.8 % (37.0-47.0); Hemoglobin 7.8 g/dl (12.0-16.0); Mean Corpuscular Hemoglobin 25.7 pg (25.0-34.0); Mean Corpuscular Hgb Conc 32.8 g/dL (32.0-36.0); Mean Corpuscular Volume 78.5 fL (80.0-100.0); Nucleated RBC # (auto) 0.28 K/uL (0.00-0.12); Nucleated RBC % (auto) 4.1 %; Platelet Count 253 K/uL (130-400); RDW Coefficient of Variation 29.4 % (11.5-14.5); RDW Standard Deviation 82.2 fL (36.4-46.3); Red Blood Count 3.03 M/uL (4.20-5.40); White Blood Count 6.81 K/ul (4.8-10.8)
[2024-05-22 07:09] LABS: Albumin Level 2.6 gm/dl (3.4-5.0); BUN Creatinine Ratio 23.1 (10-20); Bilirubin,Total 1.5 mg/dl (0.2-1.0); Calcium 7.2 mg/dl (8.6-10.3); Creatinine Clr Calc Pharmacy 63.2 ml/min; Est GFR (African American) 97.2 ml/min; Est GFR (Non-African American) 83.9 ml/min; Globulin 2.7 gm/dl (2.5-4.0); Magnesium 1.8 mg/dl (1.7-2.4); Total Protein 5.3 gm/dl (6.0-8.3)
[2024-05-22 08:05] LABS: ALC (manual) 1.29 K/uL (1.2-3.4); ANC (manual) 4.77 K/uL (1.4-6.5); Basophils # (manual) 0.07 K/uL (0-0.2); Basophils % (manual) 1 %; Blast Cells % (manual) 3 %; Eosinophils # (manual) 0.07 K/uL (0-0.50); Eosinophils % (manual) 1 %; Lymphocytes # (manual) 1.29 K/uL (1.2-3.4); Lymphocytes % (manual) 19 %; Monocytes # (manual) 0.34 K/uL (0.11-0.59); Monocytes % (manual) 5 %; Myelocytes # (manual) 0.07 K/uL (0-0); Myelocytes % (manual) 1 %; Neutrophils # (manual) 4.77 K/uL (1.40-6.50); Neutrophils % (manual) 70 %
--- NOTE | 2024-05-22 10:20 | Surgery Progress Note ---
Date of Service May 22, 2024 Assessment & Plan (1) Abnormal findings on diagnostic imaging of gall bladder: Plan: This is an 78yF with a PMH of heart failure with preserved EF, afib was on eliquis, ADD, breast ca, polyneuropathy, depression/anxiety who presented to the [facility] ED on 05/15/24 with complaints of a cough and shortness of breath. We have been consulted for abdominal pain which upon workup is concerning for acute cholecystitis. Imaging reveals a distended gallbladder with some GB wall thickening, trace fluid, and sludge. And has a HIDA performed today concerning for + acute heriberto. Workup here also showing severe aortic stenosis on recent echo with plans for possible valve replacement at some point, findings on peripheral smear concerning for MDS awaiting bone marrow biopsy, and + non bleeding duodenal ulcers found on EGD. Patient is vague when describing her abdominal pain as she has been having some intermittent pain and nausea over the last month that resolves with tums. She has had low appetite in general over the last month. Today patient reports feeling okay at rest, but does have pain with movement in her abdomen and to palpation in the epigastric and RUQ regions. Vitals are stable and patient is afebrile. Today WBC 7.9, Hbg 8.2. Patient with elevated Tb of 1.7 (2.5 on admission), AST 18, ALT 13, AlkP 103. She is currently on IV ceftriaxone and flagyl. Patient is at increased cardiac risk for surgery given her severe , would appreciate cardiology input, but consideration to valve replacement should be discussed prior to performing cholecystectomy. She also reports poor exercise tolerance over the last month. Plan HIDA proves exam concerns of acute cholecystitis T.bili is decreasing down to 1.5 today from 1.7 yesterday and MRCP (-) for the appearance of any stones. Transaminases and Alk Phos within normal limits. Patient without leukocytosis and is afebrile. Plan for percutaneous cholecystostomy tube placement by IR today. The plan was discussed again with IR who states they feel as though she will definitely be able to be done today as the patient is complaining of not being able to eat. IR suspects she may be done this afternoon. Will keep you informed should we come to find out differently so that her diet may be adjusted accordingly. Admission and Anticipated Discharge Date Admission Date: May 15, 2024 Subjective Patient seen and examined by surgery this am. She continues with mild RUQ pain. Denies N/V. C/o wanting to eat. Physical Exam Constitutional: + ill appearing; + not healthy appearing , not in distress and not diaphoretic Respiratory: + uses accessory muscles; + abnormal res piratory effort, no respiratory distress and no labored breathing Gastrointestinal (Abdomen): Inspection/Auscultation: abdomen not distended TTP epigastric and RUQ Results & Data Vital Signs (Past 12 Hours) Vital Signs Temp Pulse Pulse Resp BP Pulse Ox O2 Del Method 05/22/24 08:43 118/63 05/22/24 08:20 37.0 C 96 H 18 96/62 L 93 Room Air 05/22/24 07:28 92 H 05/22/24 02:38 36.8 C 101 H 17 112/68 95 Room Air 05/21/24 23:11 36.5 C 102 H 17 108/72 93 Room Air Diagnostic Findings HIDA (+) for acute cholecystitis MRCP does not reveal stones or evidence of choledocholithiasis PG Care Time/CCT Total # of Minutes Spent Total Time Spent with Patient: Total time spent is greater than 50% in coordination of care (as documented) at patient's floor/unit and/or counseling patient: Coding Level of Care Code 94720 SUB INP/OBS CARE 1/25MIN Diagnoses Abnormal findings on diagnostic imaging of gall bladder R93.2
--- NOTE | 2024-05-22 14:38 | Communication Note ---
Date of Service: May 22, 2024 After discussions today it was deemed patient is an appropriate candidate for percutaneous cholecystostomy tube given her findings of cholecystitis, in the setting of multiple medical issues including severe aortic stenosis. Discussed with IR who was able to graciously place her on the schedule this afternoon despite a very busy schedule. Unfortunately patient was getting progressively upset about remaining NPO and requesting to see the provider who performs the procedures. I informed the patient that she will meet the provider down in the Radiology Dept who will also go over the procedure in detail with her and have her sign a consent prior to performing the percutaneous cholecystostomy tube. Even though she was scheduled to go down around 2:15p which was less than a [id number] away she still was refusing to have the procedure performed today requesting a pop sicle. At this point in time we will cancel it for today. I have informed IR who has an opening at 1:00pm tomorrow and states she only needs to be NPO for 6 hours prior, so if she is able to have an early bfast tomorrow she can. We will give her clears at this point and make NPO again tomorrow AM.
--- NOTE | 2024-05-22 14:55 | Hospitalist Progress Note ---
Date of Service May 22, 2024 Assessment & Plan (1) Acute cholecystitis: Plan: 78-year-old woman admitted with acute cholecystitis recent fever (AM 8/), mildly elevated bilirubin, poor appetite, nausea, back pain, right upper quadrant tenderness CT a/p, RUQ u/s, and HIDA scan all suggestive of acute cholecystitis. RUQ u/s shows enlarged GB with significant sludge. MRCP also with some mild wall thickening and sludge, no cholelithiasis or choledocholithiasis poor surgical candidate given her medical history including recent decompensated CHF, rapid a.fib, severe , recent duodenal ulcers with bleeding, anemia, and possible bone marrow disorder. - General Surgery consulted - percutaneous TRACTOR SWEEPER OPERATOR planned by IR today, but she refused. This is being rescheduled for tomorrow - continue ceftriaxone and metronidazole, day 3 - currently clear liquid diet, IV fluids on hold - monitor exam CBC and CMP (2) Acute blood loss anemia: Plan: Acute blood loss anemia secondary to acute upper GI bleed from duodenal ulcers Hgb 14.6 [December 2023] -> 7.9 on admission and then down further to 7.1, microcytic, also with 5% blasts and abnormal peripheral smear EGD 05/18/24 with duodenal ulcers x 3 Transfused 1 unit RBCs this admission Iron studies were actually elevated -- per commanding officer traffic division may be falsely elevated in setting of inflammation B12/folate/TSH wnl. Hemolysis labs negative Cont IV PPI twice daily until discharge, then change to PO PPI twice daily at discharge H/H stable today though mild downward trend, continue monitor CBC (3) GI bleed: (4) Atrial fibrillation with rapid ventricular response: Plan: permanent atrial fibrillation remains on metoprolol tartrate 50mg q6h - rates at goal with such ultimately change to meto succinate in the future holding Eliquis due to recent GI bleeding/anemia, and now concerns for acute cholecystitis cont telemetry (5) Heart failure with preserved ejection fraction: Plan: Acute on chronic diastolic congestive heart failure Secondary to a. fib RVR and aortic stenosis. ECHO w/ preserved EF 65-70%, no regional WMA's, mild concentric LVH, and now severe aortic stenosis, mild AI, mild pulmonary hypertension with RVSP 44 mmHg, and a large pleural effusion Cont metoprolol tartrate 50mg q6h; ultimately change tartrate to succinate Continue PRN lasix, 20 mg po for discharge Follow up with CHF clinic (6) Aortic stenosis: Plan: severe address post-d/c, assess for possible TAVR in outpatient setting follow up with [facility] Card[facility] (7) Abnormal CBC: Plan: 5% blasts seen on peripheral smear - pathology suspects myelodysplasia, but less likely could be from stress response Flow cytometry returned suspicious for myeloid neoplasm or "evolving AML" Heme/onc consult appreciated plan was for bone marrow bx and aspirate 05/21, deferred for now because of acute cholecystitis (8) Phlebitis: Plan: right cephalic vein small amount RUE doppler did not show more proximal extension or DVT elevate arm, warm compresses, resume Eliquis when stable from GI standpoint to reduce chances of propagation Plan Chronic medical issues: Peripheral neuropathy-continue duloxetine 20 mg daily H/o Breast CA Anxiety-duloxetine VTE Prophylaxis - SCDs, TEDs; Eliquis on hold due to recent GI bleeding; since H/H remain stable and there have been no signs of recurrent bleeding consider, at least, SC heparin for DVT proph Hold off today since she could potentially need an IR procedure tomorrow PT/OT when able updated pt's son Quincy by phone on 05/20 and 05/21 Admission and Anticipated Discharge Date Admission Date: May 15, 2024 Subjective Seen early AM Mild RUQ pain and tenderness, no shortness of breath Had perc TRACTOR SWEEPER OPERATOR scheduled 1430 today by IR but refused because she was irritable about NPO status today Physical Exam 2 Physical Exam: PHYSICAL EXAMINATION Last 24h vital signs reviewed, see documentation in flowsheet General: comfortable appearing, no distress HEENT: Normocephalic, atraumatic, pupils round and equal, sclerae anicteric, no conjunctival injection, moist mucus membranes Lungs: Normal respiratory effort. Clear to auscultation bilaterally. No RRW Heart: irregularly irregular, systolic murmur. EJ's look a little full Abdomen: Soft, nondistended. mild tenderness in right upper quadrant to deep palpation some voluntary guarding no rebound tenderness. Bowel sounds present. Extremities: Warm, dry, well-perfused. mild extremity edema. Neuro: Alert and oriented x 4, face symmetric, moves 4 extremities well Psych: irritable affect and normal behavior Results & Data Results & Data Vital Signs (Past 12 Hours) Vital Signs Temp Pulse Pulse Pulse Resp BP Pulse Ox 05/22/24 14:10 100 H 102/71 05/22/24 14:01 82 05/22/24 12:05 36.4 C L 85 18 95/60 L 93 05/22/24 10:41 05/22/24 08:43 118/63 05/22/24 08:20 37.0 C 96 H 18 96/62 L 93 05/22/24 07:28 92 H O2 Del Method 05/22/24 14:10 05/22/24 14:01 05/22/24 12:05 Room Air 05/22/24 10:41 Room Air 05/22/24 08:43 05/22/24 08:20 Room Air 05/22/24 07:28 Laboratory Results 05/22/24 06:14 05/22/24 06:14 PG Care Time/CCT Total # of Minutes Spent Total Time Spent with Patient: Total time spent is greater than 50% in coordination of care (as documented) at patient's floor/unit and/or counseling patient: Coding Level of Care Code 76977 SUB INP/OBS CARE 3/50MIN Diagnoses Acute cholecystitis K81.0 Acute blood loss anemia D62 GI bleed K92.2 Atrial fibrillation with rapid ventricular response I48.91 Heart failure with preserved ejection fraction I50.30 Aortic stenosis I35.0 Abnormal CBC R79.89 Phlebitis I80.9
[2024-05-23 09:43] LABS: Albumin Level 2.6 gm/dl (3.4-5.0); BUN Creatinine Ratio 23.1 (10-20); Bilirubin,Total 1.3 mg/dl (0.2-1.0); Calcium 7.3 mg/dl (8.6-10.3); Creatinine Clr Calc Pharmacy 63.6 ml/min; Est GFR (African American) 97.2 ml/min; Est GFR (Non-African American) 83.9 ml/min; Globulin 2.7 gm/dl (2.5-4.0); Potassium 3.7 mmol/L (3.5-5.1); Total Protein 5.3 gm/dl (6.0-8.3)
[2024-05-23 09:51] LABS: Hemoglobin 8.3 g/dl (12.0-16.0); Mean Corpuscular Hemoglobin 25.4 pg (25.0-34.0); Mean Corpuscular Hgb Conc 31.9 g/dL (32.0-36.0); Mean Corpuscular Volume 79.5 fL (80.0-100.0); Nucleated RBC # (auto) 0.32 K/uL (0.00-0.12); Platelet Count 271 K/uL (130-400); RDW Standard Deviation 83.5 fL (36.4-46.3); Red Blood Count 3.27 M/uL (4.20-5.40); White Blood Count 6.39 K/ul (4.8-10.8)
--- NOTE | 2024-05-23 11:12 | Surgery Progress Note ---
Date of Service May 23, 2024 Assessment & Plan (1) Abnormal findings on diagnostic imaging of gall bladder: Plan: This is an 78yF with a PMH of heart failure with preserved EF, afib was on eliquis, ADD, breast ca, polyneuropathy, depression/anxiety who presented to the [facility] ED on 05/15/24 with complaints of a cough and shortness of breath. We have been consulted for abdominal pain which upon workup is concerning for acute cholecystitis. Imaging reveals a distended gallbladder with some GB wall thickening, trace fluid, and sludge. And has a HIDA performed today concerning for + acute heriberto. Workup here also showing severe aortic stenosis on recent echo with plans for possible valve replacement at some point, findings on peripheral smear concerning for MDS awaiting bone marrow biopsy, and + non bleeding duodenal ulcers found on EGD. Patient is vague when describing her abdominal pain as she has been having some intermittent pain and nausea over the last month that resolves with tums. She has had low appetite in general over the last month. Today patient reports feeling okay at rest, but does have pain with movement in her abdomen and to palpation in the epigastric and RUQ regions. Vitals are stable and patient is afebrile. Today WBC 7.9, Hbg 8.2. Patient with elevated Tb of 1.7 (2.5 on admission), AST 18, ALT 13, AlkP 103. She is currently on IV ceftriaxone and flagyl. Patient is at increased cardiac risk for surgery given her severe , would appreciate cardiology input, but consideration to valve replacement should be discussed prior to performing cholecystectomy. She also reports poor exercise tolerance over the last month. HIDA proves exam concerns of acute cholecystitis T.bili is decreasing down to 1.5 today from 1.7 yesterday and MRCP (-) for the appearance of any stones. Transaminases and Alk Phos within normal limits. Patient without leukocytosis and is afebrile. Plan Percutaneous cholecystostomy tube was placed by IR today. Gail appears to have tolerated that procedure well. She may be started on the usual diet that would be recommended per medicine. F/u with surgery should she undergo cardiac valve replacement at some point and be able to be cleared for surgery for consideration of cholecystectomy with removal of the percutaneous cholecystostomy tube or GI for consideration of Axios stent placement and tube removal. Surgery will sign off at this time. Admission and Anticipated Discharge Date Admission Date: May 15, 2024 Subjective Patient seen and examined this am. She has no pain with the percutaneous cholecystostomy tube that was very recently placed and it appears to be draining. She denies nausea, abdominal pain is ready to begin her diet. Physical Exam Constitutional: not in distress and not diaphoretic Respiratory: Seems less SOB than yesterday. Appears very comfortable. Gastrointestinal (Abdomen): Abdomen is with percutaneous cholecystostomy tube at the [facility]. Dressing is clean and dry. Dark bile draining through tubing. She is non-tender Results & Data Vital Signs (Past 12 Hours) Vital Signs Temp Pulse Pulse Resp BP Pulse Ox O2 Del Method 05/23/24 07:52 36.5 C 130 H 18 105/80 95 Room Air 05/23/24 07:35 123 H 05/23/24 03:08 36.8 C 92 H 18 97/63 L 95 Room Air 05/23/24 02:13 86 05/23/24 01:48 Room Air 05/22/24 23:26 36.6 C 90 18 102/59 L 93 Room Air PG Care Time/CCT Total # of Minutes Spent Total Time Spent with Patient: Total time spent is greater than 50% in coordination of care (as documented) at patient's floor/unit and/or counseling patient: Coding Level of Care Code 52614 SUB INP/OBS CARE 125MIN Diagnoses Abnormal findings on diagnostic imaging of gall bladder R93.2
--- NOTE | 2024-05-23 12:58 | Ultrasound Report ---
Ultrasound-guided cholecystostomy tube placement INDICATION: Acute cholecystitis PROCEDURE: Procedure and risks were explained. Informed consent was obtained. A final timeout was com pleted. The abdomen was prepped and draped in sterile fashion. 1% lidocaine was utilized for skin ane sthesia. Utilizing ultrasound guidance, an 18-gauge Chiba needle was advanced through a small anterior wedge o f liver into the gallbladder. Ultrasound images were obtained. A 0.035 Amplatz wire was introduced th rough the entry needle and exchanged for an 8 [place] locking pigtail catheter. Approximately 20 mL of thick gallbladder fluid was removed and sent to lab for analysis. The catheter was sutured to the sk in with 3-0 Prolene and placed to gravity bag drainage. The patient tolerated the procedure well. Vit al signs will be monitored on the floor. IMPRESSION: Cholecystostomy tube placement as above. Performed, dictated, and signed by Zhang Allen PA-C; to be co-signed by Dr. Travis Tinsley. Electronically signed by: Travis Tinsley M.D. 05/23/2024 9:21 PM
--- NOTE | 2024-05-23 16:45 | Hospitalist Progress Note ---
Date of Service May 23, 2024 Assessment & Plan (1) Acute cholecystitis: Plan: 78-year-old woman admitted with acute cholecystitis recent fever (AM 8), mildly elevated bilirubin, poor appetite, nausea, back pain, right upper quadrant tenderness CT a/p, RUQ u/s, and HIDA scan all suggestive of acute cholecystitis. RUQ u/s shows enlarged GB with significant sludge. MRCP also with some mild wall thickening and sludge, no cholelithiasis or choledocholithiasis poor surgical candidate given her medical history including recent decompensated CHF, rapid a.fib, severe , recent duodenal ulcers with bleeding, anemia, and possible bone marrow disorder. - General Surgery consulted - percutaneous cholecystostomy placed 05/23 - continue ceftriaxone and metronidazole, day 4 - tolerating general diet - CBC and CMP reviewed remarkable for improvement in total bilirubin down to 1.3 normal AST/ALT/alk phos, normal creatinine and electrolytes (2) Acute blood loss anemia: Plan: Acute blood loss anemia secondary to acute upper GI bleed from duodenal ulcers Hgb 14.6 [December 2023] -> 7.9 on admission and then down further to 7.1, microcytic, also with 5% blasts and abnormal peripheral smear EGD 05/18/24 with duodenal ulcers x 3 Transfused 1 unit RBCs this admission Iron studies were actually elevated -- per senior sharepoint architect may be falsely elevated in setting of inflammation B12/folate/TSH wnl. Hemolysis labs negative Cont IV PPI twice daily until discharge, then change to PO PPI twice daily at discharge H/H stable today though mild downward trend, continue monitor CBC (3) GI bleed: (4) Atrial fibrillation with rapid ventricular response: Plan: permanent atrial fibrillation remains on metoprolol tartrate 50mg q6h - rates at goal with such ultimately change to meto succinate in the future holding Eliquis due to recent GI bleeding/anemia, and cholecystostomy placement cont telemetry (5) Heart failure with preserved ejection fraction: Plan: Acute on chronic diastolic congestive heart failure Secondary to a. fib RVR and aortic stenosis. ECHO w/ preserved EF 65-70%, no regional WMA's, mild concentric LVH, and now severe aortic stenosis, mild AI, mild pulmonary hypertension with RVSP 44 mmHg, and a large pleural effusion Cont metoprolol tartrate 50mg q6h; ultimately change tartrate to succinate start Lasix 20 mg p.o. daily in a.m. Follow up with CHF clinic (6) Aortic stenosis: Plan: severe address post-d/c, assess for possible TAVR in outpatient setting follow up with [facility] [place] [facility] (7) Abnormal CBC: Plan: 5% blasts seen on peripheral smear - pathology suspects myelodysplasia, but less likely could be from stress response Flow cytometry returned suspicious for myeloid neoplasm or "evolving AML" Heme/onc consult appreciated plan was for bone marrow bx and aspirate 05/21, deferred for now because of acute cholecystitis discuss with Dr. Hackett regarding timing (8) Phlebitis: Plan: right cephalic vein small amount RUE doppler did not show more proximal extension or DVT elevate arm, warm compresses, resume Eliquis when stable from GI standpoint to reduce chances of propagation Plan Chronic medical issues: Peripheral neuropathy-continue duloxetine 20 mg daily H/o Breast CA Anxiety-duloxetine VTE Prophylaxis - start enoxaparin in AM. Resume apixaban when able PT/OT updated pt's son Quincy by phone on 05/20 and 05/21 Admission and Anticipated Discharge Date Admission Date: May 15, 2024 Subjective improved, minimal right upper quadrant pain at drain site. No nausea tolerated lunch well following cholecystostomy placement Physical Exam 2 Physical Exam: PHYSICAL EXAMINATION Last 24h vital signs reviewed, see documentation in flowsheet General: comfortable appearing, no distress, awake alert in bed HEENT: Normocephalic, atraumatic, pupils round and equal, sclerae anicteric, no conjunctival injection, moist mucus membranes Lungs: Normal respiratory effort. Clear to auscultation bilaterally. No RRW Heart: irregularly irregular, systolic murmur. Abdomen: Soft, nondistended. right upper quadrant nontender, percutaneous drain with dark brown bilious drainage. Bowel sounds present. Extremities: Warm, dry, well-perfused. 1-2+ extremity edema. Neuro: Alert and oriented x 4, face symmetric, moves 4 extremities well Psych: irritable affect and normal behavior Results & Data Results & Data Vital Signs (Past 12 Hours) Vital Signs Temp Pulse Pulse Pulse Resp BP Pulse Ox 05/23/24 15:55 05/23/24 15:55 103 H 05/23/24 15:36 36.6 C 90 18 107/72 95 05/23/24 14:12 95 H 18 112/82 95 05/23/24 13:59 91 H 05/23/24 13:42 92 H 20 124/76 95 05/23/24 13:12 84 18 110/72 98 05/23/24 12:42 90 20 102/74 98 05/23/24 12:12 97 H 18 153/96 H 96 05/23/24 11:57 97 H 18 104/65 97 05/23/24 11:50 05/23/24 11:25 36.6 C 75 18 111/78 95 05/23/24 07:52 36.5 C 130 H 18 105/80 95 05/23/24 07:35 123 H O2 Del Method 05/23/24 15:55 Room Air 05/23/24 15:55 05/23/24 15:36 Room Air 05/23/24 14:12 Room Air 05/23/24 13:59 05/23/24 13:42 Room Air 05/23/24 13:12 Room Air 05/23/24 12:42 Room Air 05/23/24 12:12 Room Air 05/23/24 11:57 Room Air 05/23/24 11:50 Room Air 05/23/24 11:25 Room Air 05/23/24 07:52 Room Air 05/23/24 07:35 Laboratory Results 05/23/24 09:10 05/23/24 09:10 PG Care Time/CCT Total # of Minutes Spent Total Time Spent with Patient: Total time spent is greater than 50% in coordination of care (as documented) at patient's floor/unit and/or counseling patient: Coding Level of Care Code 04867 SUB INP/OBS CARE 2/35MIN Diagnoses Acute cholecystitis K81.0 Acute blood loss anemia D62 GI bleed K92.2 Atrial fibrillation with rapid ventricular response I48.91 Heart failure with preserved ejection fraction I50.30 Aortic stenosis I35.0 Abnormal CBC R79.89 Phlebitis I80.9
[2024-05-24 07:05] LABS: Albumin Level 2.7 gm/dl (3.4-5.0); Bilirubin,Total 1.2 mg/dl (0.2-1.0); Calcium 7.3 mg/dl (8.6-10.3); Potassium 3.9 mmol/L (3.5-5.1)
[2024-05-24 07:10] LABS: Creatinine Clr Calc Pharmacy 61.1 ml/min; Est GFR (African American) 95.8 ml/min; Est GFR (Non-African American) 82.6 ml/min; Globulin 2.7 gm/dl (2.5-4.0); Total Protein 5.4 gm/dl (6.0-8.3)
[2024-05-24 07:38] LABS: Hematocrit (blood only) 25.9 % (37.0-47.0); Hemoglobin 8.1 g/dl (12.0-16.0); Mean Corpuscular Hemoglobin 25.3 pg (25.0-34.0); Mean Corpuscular Hgb Conc 31.3 g/dL (32.0-36.0); Mean Corpuscular Volume 80.9 fL (80.0-100.0); Nucleated RBC # (auto) 0.44 K/uL (0.00-0.12); Nucleated RBC % (auto) 7.2 %; Platelet Count 251 K/uL (130-400); RDW Coefficient of Variation 29.5 % (11.5-14.5); RDW Standard Deviation 85.5 fL (36.4-46.3)
[2024-05-24 07:39] LABS: Platelet Estimate Normal (Normal)
[2024-05-24] MEDS: FUROSEMIDE 20 MG TAB PO SCH (08:39)
[2024-05-24] MEDS: POLYETHYLENE (MIRALAX) 17 GM PACK PO SCH (08:42)
[2024-05-24] MEDS: SENNA 8.6 MG TAB PO SCH (08:43)
--- NOTE | 2024-05-24 16:45 | Hospitalist Progress Note ---
Date of Service May 24, 2024 Assessment & Plan (1) Acute cholecystitis: Plan: 78-year-old woman admitted with acute cholecystitis recent fever (AM 8), mildly elevated bilirubin, poor appetite, nausea, back pain, right upper quadrant tenderness CT a/p, RUQ u/s, and HIDA scan all suggestive of acute cholecystitis. RUQ u/s showed enlarged GB with significant sludge. MRCP also with some mild wall thickening and sludge, no cholelithiasis or choledocholithiasis poor surgical candidate given her medical history including recent decompensated CHF, rapid a.fib, severe , recent duodenal ulcers with bleeding, anemia, and possible bone marrow disorder. - General Surgery consulted - percutaneous cholecystostomy placed 05/23 - continue ceftriaxone and metronidazole, day 5 - tolerating general diet - no leukocytosis, CMP nearly normal today except for mild hyponatremia which has been persistent likely related to heart failure (2) Acute blood loss anemia: Plan: Acute blood loss anemia secondary to acute upper GI bleed from duodenal ulcers Hgb 14.6 [December 2023] -> 7.9 on admission and then down further to 7.1, microcytic, also with 5% blasts and abnormal peripheral smear EGD 05/18/24 with duodenal ulcers x 3 Transfused 1 unit RBCs this admission Iron studies were actually elevated -- per waste elimination may be falsely elevated in setting of inflammation B12/folate/TSH wnl. Hemolysis labs negative Cont IV PPI twice daily until discharge, then change to PO PPI twice daily at discharge hemoglobin remained stable without evidence of ongoing GI bleeding (3) GI bleed: (4) Atrial fibrillation with rapid ventricular response: Plan: permanent atrial fibrillation remains on metoprolol tartrate 50mg q6h - rates at goal with such ultimately change to meto succinate in the future holding Eliquis due to recent GI bleeding/anemia, and cholecystostomy placement cont telemetry (5) Heart failure with preserved ejection fraction: Plan: Acute on chronic diastolic congestive heart failure Secondary to a. fib RVR and aortic stenosis. ECHO w/ preserved EF 65-70%, no regional WMA's, mild concentric LVH, and now severe aortic stenosis, mild AI, mild pulmonary hypertension with RVSP 44 mmHg, and a large pleural effusion Cont metoprolol tartrate 50mg q6h; ultimately change tartrate to succinate continue Lasix 20 mg p.o. daily in a.m. Follow up with CHF clinic (6) Aortic stenosis: Plan: severe address post-d/c, assess for possible TAVR in outpatient setting follow up with [facility] [place] Card[facility] (7) Abnormal CBC: Plan: 5% blasts seen on peripheral smear - pathology suspects myelodysplasia, but less likely could be from stress response Flow cytometry returned suspicious for myeloid neoplasm or "evolving AML" Heme/onc consult appreciated discussed with IR today, will do bone marrow biopsy tomorrow morning (8) Phlebitis: Plan: right cephalic vein small amount RUE doppler did not show more proximal extension or DVT elevate arm, warm compresses, resume Eliquis when stable from GI standpoint to reduce chances of propagation Plan Chronic medical issues: Peripheral neuropathy-continue duloxetine 20 mg daily H/o Breast CA Anxiety-duloxetine VTE Prophylaxis - enoxaparin. Resume apixaban when able PT/OT updated pt's son Quincy by phone on 05/20 and 05/21, 05/24 Admission and Anticipated Discharge Date Admission Date: May 15, 2024 Subjective Gail is doing well with respect to right upper quadrant paincurrently only seems to have pain at the drain site. No nausea and vomiting and is eating well she is concerned about getting the bone marrow biopsy done soon she has some leg edema that is worse than her baseline and some left arm edema. Does not feel short of breath but has not really been out of bed since prior to the cholecystostomy Physical Exam 2 Physical Exam: PHYSICAL EXAMINATION Last 24h vital signs reviewed, see documentation in flowsheet General: comfortable appearing, no distress, awake and lying in bed HEENT: Normocephalic, atraumatic, pupils round and equal, sclerae anicteric, no conjunctival injection, moist mucus membranes Lungs: Normal respiratory effort. Clear to auscultation bilaterally. No RRW Heart: irregularly irregular, systolic murmur. Abdomen: unchanged:Soft, nondistended. right upper quadrant nontender, percutaneous drain with dark brown bilious drainage. Bowel sounds present. Extremities: Warm, dry, well-perfused. 1-2+ Lowerextremity edema. and 1+ left upper extremity edema Neuro: Alert and oriented x 4, face symmetric, moves 4 extremities well Psych: normal affect and normal behavior Results & Data Results & Data Vital Signs (Past 12 Hours) Vital Signs Temp Pulse Pulse Resp BP Pulse Ox O2 Del Method 05/24/24 15:46 36.4 C L 89 18 124/81 97 Room Air 05/24/24 14:37 99 H 05/24/24 11:41 36.5 C 95 H 18 104/65 96 Room Air 05/24/24 11:09 Room Air 05/24/24 07:55 36.4 C L 98 H 18 103/68 95 Room Air 05/24/24 07:22 100 H Laboratory Results 05/24/24 06:07 05/24/24 06:07 PG Care Time/CCT Total # of Minutes Spent Total Time Spent with Patient: I personally spent: 50 minutes today on clinical care activities including: reviewing chart notes and vital signs reviewing labs reviewing studies discussion with interventional radiology discussion with care transitions manager examining and counseling the patient counseling the patient's family writing orders documentation Coding Level of Care Code 22164 SUB INP/OBS CARE 3/50MIN Diagnoses Acute cholecystitis K81.0 Acute blood loss anemia D62 GI bleed K92.2 Atrial fibrillation with rapid ventricular response I48.91 Heart failure with preserved ejection fraction I50.30 Aortic stenosis I35.0 Abnormal CBC R79.89 Phlebitis I80.9
[2024-05-25] MEDS: ACETAMINOPHEN 1000 MG/100 ML IV IV ONE (09:41)
[2024-05-25 10:34] LABS: Hematocrit (blood only) 26.5 % (37.0-47.0); Hemoglobin 8.2 g/dl (12.0-16.0); Mean Corpuscular Hemoglobin 24.6 pg (25.0-34.0); Mean Corpuscular Hgb Conc 30.9 g/dL (32.0-36.0); Mean Corpuscular Volume 79.3 fL (80.0-100.0); Nucleated RBC # (auto) 0.56 K/uL (0.00-0.12); Nucleated RBC % (auto) 9.6 %; Platelet Count 330 K/uL (130-400); RDW Coefficient of Variation 29.4 % (11.5-14.5); RDW Standard Deviation 83.5 fL (36.4-46.3); Red Blood Count 3.34 M/uL (4.20-5.40); White Blood Count 5.85 K/ul (4.8-10.8)
[2024-05-25 10:51] LABS: ANC (manual) 3.39 K/uL (1.4-6.5); Acanthocytes 1+; Anisocytosis Present; Blast # (manual) 0.47 K/uL (0-0); Blast Cells % (manual) 8 %; Bone Marrow Smear SLHOLD; Eosinophils # (manual) 0.35 K/uL (0-0.50); Eosinophils % (manual) 6 %; Hypogranular Neutrophils 3+; Lymphocytes % (manual) 24 %; Monocytes # (manual) 0.23 K/uL (0.11-0.59); Monocytes % (manual) 4 %; Neutrophils # (manual) 3.39 K/uL (1.40-6.50); Neutrophils % (manual) 58 %; Poikilocytosis Present; Polychromasia 3+
--- NOTE | 2024-05-25 12:12 | CT Scan Report ---
CT-guided bone marrow biopsy INDICATION: Anemia PROCEDURE: Procedure and risks were explained. Informed consent was obtained. A final timeout was com pleted. The patient was placed in a lateral decubitus position on the CT exam table. The right glutea l region was prepped and draped in sterile fashion. 1% lidocaine was utilized for skin anesthesia. Th e patient received 1 g Tylenol IV. Utilizing CT guidance, an 11-gauge bone biopsy needle was advanced into the right iliac bone. Multipl e aspirates and one bone core was obtained and given to the lab for review. The needle was removed an d Band-Aid applied. The patient tolerated the procedure well. Vital signs will be monitored on the fl oor. IMPRESSION: Bone marrow biopsy as above. Performed, dictated, and signed by Zhang Allen PA-C; to be co-signed by Dr. Zuhair Chowdhury. Electronically signed by: Zuhair Chowdhury M.D. 05/25/2024 2:48 PM
--- NOTE | 2024-05-25 15:11 | Hospitalist Progress Note ---
Date of Service May 25, 2024 Assessment & Plan (1) Acute cholecystitis: Plan: 78-year-old woman admitted with acute cholecystitis recent fever (AM 8/), mildly elevated bilirubin, poor appetite, nausea, back pain, right upper quadrant tenderness CT a/p, RUQ u/s, and HIDA scan all suggestive of acute cholecystitis. RUQ u/s showed enlarged GB with significant sludge. MRCP also with some mild wall thickening and sludge, no cholelithiasis or choledocholithiasis poor surgical candidate given her medical history including recent decompensated CHF, rapid a.fib, severe , recent duodenal ulcers with bleeding, anemia, and possible bone marrow disorder. - General Surgery consulted - percutaneous cholecystostomy placed 05/23 - continue ceftriaxone and metronidazole, day 03/23 - tolerating general diet - no leukocytosis, CMP normal 05/24 except hyponatremia, mild (2) Acute blood loss anemia: Plan: Acute blood loss anemia secondary to acute upper GI bleed from duodenal ulcers Hgb 14.6 [December 2023] -> 7.9 on admission and then down further to 7.1, microcytic, also with 5% blasts and abnormal peripheral smear EGD 05/18/24 with duodenal ulcers x 3 Transfused 1 unit RBCs this admission Iron studies were actually elevated -- per human machine interface engineer may be falsely elevated in setting of inflammation B12/folate/TSH wnl. Hemolysis labs negative Cont IV PPI twice daily until discharge, then change to PO PPI twice daily at discharge hemoglobin unchanged at 8.2 today (3) GI bleed: (4) Atrial fibrillation with rapid ventricular response: Plan: permanent atrial fibrillation remains on metoprolol tartrate 50mg q6h - rates at goal with such ultimately change to meto succinate in the future holding Eliquis due to recent GI bleeding/anemia, and cholecystostomy placement cont telemetry (5) Heart failure with preserved ejection fraction: Plan: Acute on chronic diastolic congestive heart failure Secondary to a. fib RVR and aortic stenosis. ECHO w/ preserved EF 65-70%, no regional WMA's, mild concentric LVH, and now severe aortic stenosis, mild AI, mild pulmonary hypertension with RVSP 44 mmHg, and a large pleural effusion Cont metoprolol tartrate 50mg q6h; ultimately change tartrate to succinate increase lasix to 40 mg qAM Follow up with CHF clinic (6) Aortic stenosis: Plan: severe address post-d/c, assess for possible TAVR in outpatient setting. hematologic malignancy and/or persistence of perc cholecystostomy may be a barrier to this follow up with [facility] [place] Cardiology (7) Abnormal CBC: Plan: 5% blasts seen on peripheral smear - pathology suspects myelodysplasia, but less likely could be from stress response Flow cytometry returned suspicious for myeloid neoplasm or "evolving AML" Dr. Hackett consulted Bone marrow biopsy completed 05/25, await results (8) Phlebitis: Plan: right cephalic vein small amount RUE doppler did not show more proximal extension or DVT elevate arm, warm compresses, resume Eliquis when stable from GI standpoint to reduce chances of propagation Plan Chronic medical issues: Peripheral neuropathy-continue duloxetine 20 mg daily H/o Breast CA Anxiety-duloxetine VTE Prophylaxis - enoxaparin. Resume apixaban when able PT/OT updated pt's son Quincy by phone on 05/20 and 05/21, 05/24 Admission and Anticipated Discharge Date Admission Date: May 15, 2024 Subjective seen after BM Bx has some hip pain at site but not much no RUQ pain or nausea we discussed the reasons for her recent cough and wheezing (CHF) that have resolved in the hospital Physical Exam 2 Physical Exam: PHYSICAL EXAMINATION Last 24h vital signs reviewed, see documentation in flowsheet General: comfortable appearing, no distress, awake and lying in bed HEENT: Normocephalic, atraumatic, pupils round and equal, sclerae anicteric, no conjunctival injection, moist mucus membranes Lungs: Normal respiratory effort. Clear to auscultation bilaterally. No RRW Heart: irregularly irregular, systolic murmur. Abdomen: unchanged:Soft, nondistended. right upper quadrant nontender, percutaneous drain with dark brown bilious drainage. Bowel sounds present. Extremities: Warm, dry, well-perfused. 2+ Lower extremity edema. Neuro: Alert and oriented x 4, face symmetric, moves 4 extremities well Psych: normal affect and normal behavior Results & Data Results & Data Vital Signs (Past 12 Hours) Vital Signs Temp Pulse Resp BP Pulse Ox O2 Del Method 05/25/24 11:27 36.3 C L 122 H 20 107/73 96 Room Air 05/25/24 08:56 36.4 C L 65 20 97/67 L 94 Room Air 05/25/24 03:50 36.5 C 87 16 99/68 L 94 Room Air Laboratory Results 05/25/24 10:04 05/24/24 06:07 PG Care Time/CCT Total # of Minutes Spent Total Time Spent with Patient: Total time spent is greater than 50% in coordination of care (as documented) at patient's floor/unit and/or counseling patient: Coding Level of Care Code 11199 SUB INP/OBS CARE 2/35MIN Diagnoses Acute cholecystitis K81.0 Acute blood loss anemia D62 GI bleed K92.2 Atrial fibrillation with rapid ventricular response I48.91 Heart failure with preserved ejection fraction I50.30 Aortic stenosis I35.0 Abnormal CBC R79.89 Phlebitis I80.9
--- NOTE | 2024-05-25 23:40 | Communication Note ---
Date of Service: May 25, 2024 Notified by nursing of concern for persistent tachycardia. Monitor showing Afib with RVR rates 110s-140s. Hypotensive with blood pressures 90s/60s. Repeat labs stable from prior, Hbg= 8.1. K= 3.4; repleted. Given recent GI bleed and concern for myelodysplastic syndrome; tachycardia/hypotension likely reactive in the setting of acute anemia. Discussed with pt at bedside and plan to transfuse 1 unit pRBC. On exam she was in no acute distress, lungs clear to auscultation B/L, heart with irregular rate, tachycardic, +2 pitting edema LE B/L. Noted history of HFpEF and need for IV Lasix with last transfusion, hold on IV Lasix at present due to hypotension but monitor closely throughout transfusion and low threshold to give Lasix if any decompensation in respiratory status.
[2024-05-26] MEDS ORDERED: SODIUM CHLORIDE 0.9% 250 ML IV PRN (00:15)
[2024-05-26 00:23] LABS: Albumin Level 2.5 gm/dl (3.4-5.0); BUN Creatinine Ratio 21.5 (10-20); Bilirubin,Total 0.9 mg/dl (0.2-1.0); Calcium 7.4 mg/dl (8.6-10.3); Creatinine Clr Calc Pharmacy 63.7 ml/min; Est GFR (African American) 97.2 ml/min; Est GFR (Non-African American) 83.9 ml/min; Globulin 2.6 gm/dl (2.5-4.0); Magnesium 1.8 mg/dl (1.7-2.4); Potassium 3.4 mmol/L (3.5-5.1); Total Protein 5.1 gm/dl (6.0-8.3)
[2024-05-26 00:29] LABS: Troponin I High Sensitivity 9.1 pg/ml (0-14)
[2024-05-26 01:20] LABS: Acanthocytes 2+; Anisocytosis Present; Basophils # (auto) 0.02 K/uL (0.00-0.20); Basophils % (auto) 0.3 %; Eosinophils % (auto) 1.5 %; Hematocrit (blood only) 25.7 % (37.0-47.0); Hemoglobin 8.1 g/dl (12.0-16.0); Hypogranular Neutrophils 2+; Immature Granulocytes # (auto) 0.34 K/uL (0.01-0.20); Immature Granulocytes % (auto) 5.2 %; Lymphocytes # (auto) 1.18 K/uL (1.20-3.40); Lymphocytes % (auto) 17.9 %; Mean Corpuscular Hgb Conc 31.5 g/dL (32.0-36.0); Mean Corpuscular Volume 79.3 fL (80.0-100.0); Monocytes # (auto) 0.71 K/uL (0.11-0.59); Monocytes % (auto) 10.8 %; Neutrophils # (auto) 4.23 K/uL (1.40-6.50); Neutrophils % (auto) 64.3 %; Nucleated RBC # (auto) 0.74 K/uL (0.00-0.12); Nucleated RBC % (auto) 11.2 %; Platelet Count 346 K/uL (130-400); Poikilocytosis Present; Polychromasia 3+; RDW Coefficient of Variation 29.7 % (11.5-14.5); RDW Standard Deviation 83.2 fL (36.4-46.3); Red Blood Count 3.24 M/uL (4.20-5.40); White Blood Count 6.58 K/ul (4.8-10.8)
[2024-05-26] MEDS: POTASSIUM CHLORIDE CRTAB 20 MEQ TABCR PO STA (04:30)
[2024-05-26] MEDS: FUROSEMIDE 40 MG TAB PO SCH (10:29)
--- NOTE | 2024-05-26 15:17 | Hospitalist Progress Note ---
<Statement entered by Laura Johnston MD - 05/26/24 17:24> I have reviewed vital signs, chart notes, labs and imaging. I have personally seen, evaluated and examined the patient. I have also discussed the management of the patient with the GRACE and I agree with the exam findings documented in the history and physical examination and the documented assessment and plan unless otherwise stated below. Last 24 hours she has had a few episodes of mild to moderate hypotension she had rapid A-fib last night hemoglobin was stable at 8.1 but resident transfused thinking perhaps she would benefit from higher hemoglobin. She another episode of relative mild to moderate hypotension this afternoon was a little lightheaded. Decreased her metoprolol dose and ordered small fluid bolus. She will be preload dependent because of her severe aortic stenosis she may need alternative agent for rate control that does not cause so much hypotension. Date of Service May 26, 2024 Assessment & Plan (1) Acute cholecystitis: Plan: 78-year-old woman admitted with acute cholecystitis recent fever (AM 05/20), mildly elevated bilirubin, poor appetite, nausea, back pain, right upper quadrant tenderness CT a/p, RUQ u/s, and HIDA scan all suggestive of acute cholecystitis. RUQ u/s showed enlarged GB with significant sludge. MRCP also with some mild wall thickening and sludge, no cholelithiasis or choledocholithiasis She is a poor surgical candidate given her medical history including recent decompensated CHF, rapid a.fib, severe , recent duodenal ulcers with bleeding, anemia, and possible bone marrow disorder. - General Surgery consulted and percutaneous cholecystostomy placed 05/23 - continue ceftriaxone and metronidazole until tomorrow. - tolerating general diet - no leukocytosis, CMP normal 05/24 except hyponatremia, mild (2) Acute blood loss anemia: Plan: Acute blood loss anemia secondary to acute upper GI bleed from duodenal ulcers Hgb 14.6 [December 2023] -> 7.9 on admission and then down further to 7.1, microcytic, also with 5% blasts and abnormal peripheral smear EGD 05/18/24 with duodenal ulcers x 3 Transfused total of 2 units RBCs this admission (05/16 & 05/26) Iron studies were actually elevated -- per blacksmith assistant may be falsely elevated in setting of inflammation B12/folate/TSH wnl. Hemolysis labs negative Cont IV PPI twice daily until discharge, then change to PO PPI twice daily at discharge Hgb 8.1 on 05/25 at 2340, tachycardic, Afib RVR rate in 110-140s, hypotensive - due to recent GI bleed and concern for myelodysplastic syndrome, tachycardia/hypotension likely reactive in the setting of acute anemia - transfused 1 unit pRBCs. Repeat CBC 05/27. Hypotensive again this afternoon, will reduce metoprolol dose and give a small fluid bolus of LR. (3) GI bleed: Plan: EGD 05/18/24 with duodenal ulcers Cont IV PPI twice daily until discharge, then change to PO PPI twice daily at discharge (4) Atrial fibrillation with rapid ventricular response: Plan: permanent atrial fibrillation remains on metoprolol tartrate 50mg q6h ultimately change to meto succinate in the future holding Eliquis due to recent GI bleeding/anemia and cholecystostomy placement cont telemetry (5) Heart failure with preserved ejection fraction: Plan: Acute on chronic diastolic congestive heart failure Secondary to a. fib RVR and aortic stenosis. ECHO w/ preserved EF 65-70%, no regional WMA's, mild concentric LVH, and now severe aortic stenosis, mild AI, mild pulmonary hypertension with RVSP 44 mmHg, and a large pleural effusion Change metoprolol tartate to 25mg Q6H; ultimately change tartrate to succinate lasix to 40 mg qAM. K 3.4 on 05/26. Potassium PO 20 meq ordered today and qAM. Repeat BMP 05/27 Follow up with CHF clinic (6) Aortic stenosis: Plan: severe address post-d/c, assess for possible TAVR in outpatient setting. hematologic malignancy and/or persistence of perc cholecystostomy may be a barrier to this follow up with [facility] (7) Abnormal CBC: Plan: 5% blasts seen on peripheral smear - pathology suspects myelodysplasia, but less likely could be from stress response Flow cytometry returned suspicious for myeloid neoplasm or "evolving AML" Dr. Hackett consulted Bone marrow biopsy completed 05/25, await results (8) Phlebitis: Plan: right cephalic vein small amount RUE doppler did not show more proximal extension or DVT elevate arm, warm compresses, resume Eliquis when stable from GI standpoint to reduce chances of propagation Plan Chronic medical issues: Peripheral neuropathy-continue duloxetine 20 mg daily H/o Breast CA Anxiety-duloxetine VTE Prophylaxis - enoxaparin. Resume apixaban when able PT/OT updated pt's son Quincy by phone on 05/20 and 05/21, 05/24 Admission and Anticipated Discharge Date Admission Date: May 15, 2024 Subjective Pt resting comfortably in bed with no complaints of fatigue, SOB, wheezing or abdominal pain. Percutaneous drain in place with dark brown bilious drainage. We discussed her recent lab values and possible options for discharge. Physical Exam 2 Physical Exam: PHYSICAL EXAMINATION Last 24h vital signs reviewed, see documentation in flowsheet General: comfortable appearing, no distress, awake and lying in bed HEENT: Normocephalic, atraumatic, pupils round and equal, sclerae anicteric, no conjunctival injection, moist mucus membranes Lungs: Normal respiratory effort. Clear to auscultation bilaterally. No RRW Heart: irregularly irregular, systolic murmur. Abdomen: Soft, nondistended. Right upper quadrant nontender - percutaneous drain with dark brown bilious drainage. Bowel sounds present. Extremities: Warm, dry, well-perfused. 2+ Lower extremity edema. Neuro: Alert and oriented x 4, face symmetric, moves 4 extremities well Psych: normal affect and normal behavior Results & Data Results & Data Vital Signs (Past 12 Hours) Vital Signs Temp Pulse Pulse Resp BP BP Pulse Ox 05/26/24 11:27 36.6 C 93 H 20 101/61 98 05/26/24 08:03 36.8 C 62 20 106/72 93 05/26/24 05:08 36.6 C 103 H 18 92/64 L 96 05/26/24 04:55 36.6 C 103 H 18 92/64 L 96 05/26/24 04:53 36.6 C 103 H 18 92/64 L 96 05/26/24 04:15 36.6 C 97 H 18 94/59 L 97 05/26/24 03:59 36.7 C 102 H 16 91/58 L 92 05/26/24 03:15 36.7 C 102 H 18 91/58 L 91 O2 Del Method 05/26/24 11:27 Room Air 05/26/24 08:03 Room Air 05/26/24 05:08 05/26/24 04:55 05/26/24 04:53 05/26/24 04:15 05/26/24 03:59 Room Air 08/10/24 03:15 Laboratory Results 05/25/24 23:40 05/25/24 23:40 PG Care Time/CCT Total # of Minutes Spent Total Time Spent with Patient: Total time spent is greater than 50% in coordination of care (as documented) at patient's floor/unit and/or counseling patient: C[place] [address] SUB INP/OBS CARE 3/50MIN Patient Type Established Medical Decision Making Moderate Complexity Diagnoses Acute cholecystitis K81.0 Acute blood loss anemia D62 GI bleed K92.2 Atrial fibrillation with rapid ventricular response I48.91 Heart failure with preserved ejection fraction I50.30 Aortic stenosis I35.0 Abnormal CBC R79.89 Phlebitis I80.9
[2024-05-26] MEDS: LACTATED RINGER'S 250 ML IV ONE (17:16)
[2024-05-26] MEDS: POTASSIUM CHLORIDE CRTAB 20 MEQ TABCR PO SCH (18:19)
[2024-05-26] MEDS: METOPROLOL TARTRATE 25 MG TAB PO SCH (21:27)
[2024-05-27 06:31] LABS: BUN Creatinine Ratio 21.9 (10-20); Calcium 7.4 mg/dl (8.6-10.3); Creatinine Clr Calc Pharmacy 64.7 ml/min; Est GFR (African American) 97.7 ml/min; Est GFR (Non-African American) 84.3 ml/min; Potassium 3.8 mmol/L (3.5-5.1)
[2024-05-27 06:41] LABS: Hematocrit (blood only) 27.9 % (37.0-47.0); Mean Corpuscular Hemoglobin 25.5 pg (25.0-34.0); Mean Corpuscular Hgb Conc 32.3 g/dL (32.0-36.0); Nucleated RBC # (auto) 0.58 K/uL (0.00-0.12); Nucleated RBC % (auto) 9.8 %; Platelet Count 314 K/uL (130-400); RDW Coefficient of Variation 27.3 % (11.5-14.5); RDW Standard Deviation 76.2 fL (36.4-46.3); Red Blood Count 3.53 M/uL (4.20-5.40); White Blood Count 5.94 K/ul (4.8-10.8)
[2024-05-27] MEDS: fentaNYL citrate PF 100 MCG/2 ML VIAL ONE (07:43)
--- NOTE | 2024-05-27 11:19 | Hospitalist Progress Note ---
<Statement entered by Laura Johnston MD - 05/27/24 16:30> I have reviewed vital signs, chart notes, labs and imaging. I have personally seen, evaluated and examined the patient. I have also discussed the management of the patient with the GRACE and I agree with the exam findings documented in the history and physical examination and the documented assessment and plan unless otherwise stated below. Blood pressure better today after small fluid bolus yesterday reducing metoprolol and holding Lasix, we will resume lower dose of Lasix tomorrow morning. rate control for atrial fibrillation is acceptable but not very good, may need addition of digoxin we will discuss with heart failure clinic tomorrow Date of Service May 27, 2024 Assessment & Plan (1) Acute cholecystitis: Plan: Gail is an 78-year-old woman admitted with acute cholecystitis, s/p cholecystostomy. She developed fever (AM 8), mildly elevated bilirubin, poor appetite, nausea, back pain, right upper quadrant tenderness CT a/p, RUQ u/s, and HIDA scan all suggestive of acute cholecystitis. RUQ u/s showed enlarged GB with significant sludge. MRCP also with some mild wall thickening and sludge, no cholelithiasis or choledocholithiasis She is a poor surgical candidate given her medical history including recent decompensated CHF, rapid a.fib, severe , recent duodenal ulcers with bleeding, anemia, and possible bone marrow disorder. - General Surgery consulted and percutaneous cholecystostomy placed 05/23 - 8 day course of ceftriaxone and metronidazole completed 05/27. - Tolerating general diet - No leukocytosis, CMP stable 05/27 (2) Acute blood loss anemia: Plan: Acute blood loss anemia secondary to acute upper GI bleed from duodenal ulcers Hgb 14.6 [December 2023] -> 7.9 on admission and then down further to 7.1, microcytic, also with 5% blasts and abnormal peripheral smear. Most recent hemoglobin on 05/27 9.0. EGD 05/18/24 with duodenal ulcers x 3 Transfused total of 2 units RBCs this admission (05/16 & 05/26) Iron studies were actually elevated -- per radio personality may be falsely elevated in setting of inflammation B12/folate/TSH wnl. Hemolysis labs negative Cont IV PPI twice daily until discharge, then change to PO PPI twice daily at discharge Of note, on 05/25 - Hgb 8.1 @ 2340, tachycardic, Afib RVR rate in 110-140s, hypotensive - due to recent GI bleed and concern for myelodysplastic syndrome, tachycardia/hypotension likely reactive in the setting of acute anemia - transfused 1 unit pRBCs. Metoprolol dose reduced and small fluid bolus of LR yesterday. BP stable today, pt denies any complaints. (3) GI bleed: Plan: EGD 05/18/24 with duodenal ulcers Cont IV PPI twice daily until discharge, then change to PO PPI twice daily at discharge (4) Atrial fibrillation with rapid ventricular response: Plan: permanent atrial fibrillation remains on metoprolol tartrate, reduced to 25 mg q6h 05/26. ultimately change to meto succinate in the future holding Eliquis due to recent GI bleeding/anemia and cholecystostomy placement cont telemetry (5) Heart failure with preserved ejection fraction: Plan: Acute on chronic diastolic congestive heart failure Secondary to a. fib RVR and aortic stenosis. ECHO w/ preserved EF 65-70%, no regional WMA's, mild concentric LVH, and now severe aortic stenosis, mild AI, mild pulmonary hypertension with RVSP 44 mmHg, and a large pleural effusion Metoprolol tartate to 25mg Q6H; ultimately change tartrate to succinate Lasix reduced to 20 mg qAM - restart tomorrow, will restart potassium tomorrow as well. K 3.4 on 05/26, repeat on 05/27 K 3.8. Follow up with CHF clinic (6) Aortic stenosis: Plan: severe address post-d/c, assess for possible TAVR in outpatient setting. hematologic malignancy and/or persistence of perc cholecystostomy may be a barrier to this [place] [facility] [facility] (7) Abnormal CBC: Plan: 5% blasts seen on peripheral smear - pathology suspects myelodysplasia, but less likely could be from stress response Flow cytometry returned suspicious for myeloid neoplasm or "evolving AML" Dr. Hackett consulted Bone marrow biopsy completed 05/25, await results (8) Phlebitis: Plan: right cephalic vein small amount RUE doppler did not show more proximal extension or DVT elevate arm, warm compresses, resume Eliquis when stable from GI standpoint to reduce chances of propagation Plan Chronic medical issues: Peripheral neuropathy-continue duloxetine 20 mg daily H/o Breast CA Anxiety-duloxetine VTE Prophylaxis - enoxaparin. Resume apixaban when able PT/OT - patient is now agreeable to evaluation. Updated pt's son Quincy by phone on 05/20 and 05/21, 05/24 Admission and Anticipated Discharge Date Admission Date: May 15, 2024 Subjective Pt resting comfortably in bed with no complaints of fatigue, SOB, wheezing or abdominal pain. She reports three loose bowel movements yesterday but denies diarrhea. Percutaneous drain in place with very small amount of dark brown bilious drainage. Eating and drinking without difficulty. Has not been OOB to the chair yet. Previously declined PT/OT, but willing to try now. Review of Systems 2 Review of Systems: Gen - no fevers or chills. Cv - no chest pain Pulm - denies SOB at rest. GI - Denies any nausea, abdominal pain. Reports loose stools but denies diarrhea Extremities - swelling in bilateral feet Physical Exam 2 Physical Exam: PHYSICAL EXAMINATION Last 24h vital signs reviewed, see documentation in flowsheet General: comfortable appearing, no distress, awake and lying in bed HEENT: Normocephalic, atraumatic, pupils round and equal, sclerae anicteric, no conjunctival injection Lungs: Normal respiratory effort. Clear to auscultation bilaterally. No RRW Heart: irregularly irregular, systolic murmur. Abdomen: Soft, nontender, nondistended. Right upper quadrant nontender - percutaneous drain with dark brown bilious drainage. Bowel sounds present. Extremities: Warm, dry. 2+ Lower extremity edema (unchanged from yesterday). Neuro: Alert and oriented x 4, face symmetric, moves 4 extremities well Psych: normal affect and normal behavior Results & Data Results & Data Vital Signs (Past 12 Hours) Vital Signs Temp Pulse Pulse Resp BP Pulse Ox O2 Del Method 05/27/24 08:05 36.8 C 108 H 20 94/64 L 97 Room Air 05/27/24 07:30 88 05/27/24 03:04 36.6 C 88 18 100/66 97 Room Air 05/27/24 00:01 108 H Laboratory Results 05/27/24 05:54 05/27/24 05:54 PG Care Time/CCT Total # of Minutes Spent Total Time Spent with Patient: Total time spent is greater than 50% in coordination of care (as documented) at patient's floor/unit and/or counseling patient. Coding Level of Care Code 59154 SUB INP/OBS CARE 3/50MIN Medical Decision Making High Complexity Diagnoses Acute cholecystitis K81.0 Acute blood loss anemia D62 GI bleed K92.2 Atrial fibrillation with rapid ventricular response I48.91 Heart failure with preserved ejection fraction I50.30 Aortic stenosis I35.0 Abnormal CBC R79.89 Phlebitis I80.9
[2024-05-27] MEDS: ENOXAPARIN INJ 40 MG/0.4 ML SYR SQ SCH (13:14)
[2024-05-27] MEDS: PANTOprazole 40 MG TAB PO SCH (21:24)
[2024-05-28] MEDS: FUROSEMIDE 20 MG TAB PO SCH (09:20)
--- NOTE | 2024-05-28 10:09 | Hematology/Oncology Prog Note ---
Date of Service May 28, 2024 Assessment & Plan (1) Myelodysplastic syndrome: Plan -Per discussion with pathology, no evidence of acute leukemia. Patient however has myelodysplastic syndrome. Results discussed with patient. Would recommend outpatient follow-up with hematology upon discharge. Admission and Anticipated Discharge Date Admission Date: May 15, 2024 Subjective Preliminary read of the bone marrow biopsy results suggestive of myelodysplastic syndrome. Awaiting molecular testing. Results & Data Vital Signs (Past 12 Hours) Vital Signs Temp Pulse Pulse Resp BP BP Pulse Ox 05/28/24 08:54 102 H 05/28/24 08:26 36.5 C 106 H 16 97/60 L 95 05/28/24 03:00 36.7 C 74 16 95/63 L 94 05/28/24 02:33 36.4 C L 87 18 106/73 97 05/28/24 00:35 102 H 05/27/24 23:00 36.8 C 72 18 95/68 L 95 O2 Del Method 05/28/24 08:54 05/28/24 08:26 Room Air 05/28/24 03:00 Room Air 05/28/24 02:33 Room Air 05/28/24 00:35 05/27/24 23:00 Room Air
[2024-05-28] MEDS: DIGOXIN 0.125 MG TAB PO SCH (10:57)
--- NOTE | 2024-05-28 17:12 | Hospitalist Progress Note ---
Date of Service May 28, 2024 Assessment & Plan (1) Acute cholecystitis: Plan: Gail is an 78-year-old woman admitted with acute cholecystitis, s/p cholecystostomy. She developed fever (AM 05/20), mildly elevated bilirubin, poor appetite, nausea, back pain, right upper quadrant tenderness CT a/p, RUQ u/s, and HIDA scan all suggestive of acute cholecystitis. RUQ u/s showed enlarged GB with significant sludge. MRCP also with some mild wall thickening and sludge, no cholelithiasis or choledocholithiasis She is a poor surgical candidate given her medical history including recent decompensated CHF, rapid a.fib, severe , recent duodenal ulcers with bleeding, anemia, and possible bone marrow disorder. - General Surgery consulted and percutaneous cholecystostomy placed 05/23 - 8 day course of ceftriaxone and metronidazole completed 05/27. - Tolerating general diet - No leukocytosis, CMP stable 05/27 (2) Acute blood loss anemia: Plan: Acute blood loss anemia secondary to acute upper GI bleed from duodenal ulcers Hgb 14.6 [December 2023] -> 7.9 on admission and then down further to 7.1, microcytic, also with 5% blasts and abnormal peripheral smear. Most recent hemoglobin on 05/27 9.0. EGD 05/18/24 with duodenal ulcers x 3. pathology reviewed gastric biopsies were negative Transfused total of 2 units RBCs this admission (05/16 & 05/26) Iron studies were actually elevated -- per family life educator may be falsely elevated in setting of inflammation B12/folate/TSH wnl. Hemolysis labs negative continue twice daily PPI (3) GI bleed: Plan: EGD 05/18/24 with duodenal ulcers continue oral PPI twice daily (4) Atrial fibrillation with rapid ventricular response: Plan: permanent atrial fibrillation remains on metoprolol tartrate, reduced to 25 mg q6h 05/26 persistent mild hypotension. ultimately change to meto succinate in the future rate remains inadequately controlled and not enough blood pressure for more AV jose blocking. Discussed with Emerita Salazar /Dr. Jarquin, they are ok with adding digoxin - start oral digoxin load. notify heart failure clinic at time of discharge so that follow-up can be scheduled held Eliquis due to recent GI bleeding/anemia and cholecystostomy placement resume apixaban (5) Heart failure with preserved ejection fraction: Plan: Acute on chronic diastolic congestive heart failure Secondary to a. fib RVR and aortic stenosis. ECHO w/ preserved EF 65-70%, no regional WMA's, mild concentric LVH, and now severe aortic stenosis, mild AI, mild pulmonary hypertension with RVSP 44 mmHg, and a large pleural effusion Metoprolol tartate to 25mg Q6H; ultimately change tartrate to succinate Lasix reduced to 20 mg qAM with potassium IF BP improves with above changes would try increased lasix dose again. Edema has not improved on 20 mg dose and is bothersome to her. Follow up with CHF clinic (6) Aortic stenosis: Plan: severe address post-d/c, assess for possible TAVR in outpatient setting. hematologic malignancy and/or persistence of perc cholecystostomy may be a barrier to this [place] [facility] [place] [facility] (7) Abnormal CBC: Plan: 5% blasts seen on peripheral smear - pathology suspects myelodysplasia, but less likely could be from stress response Flow cytometry returned suspicious for myeloid neoplasm or "evolving AML" Dr. Hackett consulted Bone marrow biopsy completed 05/25, await results still pending (8) Phlebitis: Plan: right cephalic vein small amount RUE doppler did not show more proximal extension or DVT elevate arm, warm compresses, resume Eliquis when stable from GI standpoint to reduce chances of propagation Plan Chronic medical issues: Peripheral neuropathy-continue duloxetine 20 mg daily H/o Breast CA Anxiety-duloxetine VTE Prophylaxis - enoxaparin --> apixaban Plan [facility] Updated pt's son Quincy by phone on 05/20 and 05/21, 05/24 Admission and Anticipated Discharge Date Admission Date: May 15, 2024 Subjective Doing okay blood pressures little bit better on lower dose of metoprolol although heart rates little high at 100-110 no shortness of breath, no abdominal pain, no nausea or vomiting remains edematous especially lower extremities Physical Exam 2 Physical Exam: PHYSICAL EXAMINATION Last 24h vital signs reviewed, see documentation in flowsheet General: comfortable appearing, no distress, awake and lying in bed exam unchanged 05/28 HEENT: Normocephalic, atraumatic, pupils round and equal, sclerae anicteric, no conjunctival injection, moist mucus membranes Lungs: Normal respiratory effort. Clear to auscultation bilaterally. No RRW Heart: mildly tachycardic irregularly irregular, systolic murmur. Abdomen: unchanged:Soft, nondistended. right upper quadrant nontender, percutaneous drain with dark brown bilious drainage. Bowel sounds present. Extremities: Warm, dry, well-perfused. 2+ Lower extremity edema. Neuro: Alert and oriented x 4, face symmetric, moves 4 extremities well Psych: normal affect and normal behavior Results & Data Results & Data Vital Signs (Past 12 Hours) Vital Signs Temp Pulse Pulse Resp BP Pulse Ox O2 Del Method 05/28/24 16:37 100 H 05/28/24 15:45 36.7 C 111 H 16 112/69 92 Room Air 05/28/24 14:21 98 H 05/28/24 11:40 36.6 C 95 H 16 114/61 96 Room Air 05/28/24 10:57 83 05/28/24 08:54 102 H 05/28/24 08:26 36.5 C 106 H 16 97/60 L 95 Room Air Laboratory Results 05/27/24 05:54 05/27/24 05:54 PG Care Time/CCT Total # of Minutes Spent Total Time Spent with Patient: Total time spent is greater than 50% in coordination of care (as documented) at patient's floor/unit and/or counseling patient: Coding Level of Care Code 96526 SUB INP/OBS CARE 2/35MIN Diagnoses Acute cholecystitis K81.0 Acute blood loss anemia D62 GI bleed K92.2 Atrial fibrillation with rapid ventricular response I48.91 Heart failure with preserved ejection fraction I50.30 Aortic stenosis I35.0 Abnormal CBC R79.89 Phlebitis I80.9
[2024-05-28] MEDS: APIXABAN 5 MG TABLET PO SCH (20:02)
[2024-05-29 09:24] LABS: BUN Creatinine Ratio 30.2 (10-20); Calcium 7.8 mg/dl (8.6-10.3); Creatinine Clr Calc Pharmacy 82.9 ml/min; Est GFR (African American) 103.9 ml/min; Est GFR (Non-African American) 89.7 ml/min; Potassium 4.1 mmol/L (3.5-5.1)
--- NOTE | 2024-05-29 12:41 | Hospitalist Progress Note ---
Date of Service May 29, 2024 Assessment & Plan (1) Acute cholecystitis: Plan: CT a/p, RUQ u/s, and HIDA scan all suggestive of acute cholecystitis. s/p cholecystostomy tube placement by IR on 05/23/24. s/p full course of IV antibiotic therapy. clinically her cholecystitis is resolved. appreciate gen surg & IR assistance. post-d/c will need follow-up with gen surg for definitive management. (2) Acute blood loss anemia: Plan: Hgb 14.6 [December 2023] -> 7.9 on admission and then down further to 7.1, microcytic also with 5% blasts and abnormal peripheral smear s/p EGD 05/18/24 with duodenal ulcers x 3 -- most likely cause of recent abd pain & melena stools Iron studies were actually elevated -- ?falsely elevated in setting of inflammation as per Heme B12/folate/TSH wnl Total bilirubin elevated at 2.3 but LDH is normal and haptoglobin is not low Further, KESHA was negative Cont PPI twice daily She is s/p 1 unit PRBCs during this admission Hb was 9 on 05/27/24 repeat CBC in am for stability (3) GI bleed: Plan: upper; likely 2nd to duodenal ulcers Cont PPI Most recent H/H acceptable Back on Eliquis and tolerating without signs/symptoms of ongoing/recurrent bleeding Repeat CBC am (4) Atrial fibrillation with rapid ventricular response: Plan: appreciate cardiology assistance remains on metoprolol tartrate 25mg q6h + digoxin was given PO digoxin load on 05/28 with adequate rates overnight & today cont meto 25mg q6h cont digoxin 0.125mg daily dig level at day #5 cont Eliquis bid (5) Heart failure with preserved ejection fraction: Plan: Acute on chronic diastolic congestive heart failure Secondary to a. fib RVR and aortic stenosis. ECHO w/ preserved EF 65-70%, no regional WMA's, mild concentric LVH, and now severe aortic stenosis, mild AI, mild pulmonary hypertension with RVSP 44 mmHg, and a large pleural effusion Cont metoprolol tartrate 25mg q6h; ultimately change tartrate to succinate She appears volume overloaded - suspect ongoing effusions and clearly with peripheral edema On lasix 20mg qam; will give additional IV lasix later today daily standing scale weights (6) Aortic stenosis: Plan: severe address post-d/c [facility] Cardiology to manage (7) Abnormal CBC: Plan: 5% blasts seen on peripheral smear - pathology suspects myelodysplasia, but less likely could be from stress response Flow cytometry returned suspicious for myeloid neoplasm or "evolving AML"; 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 stomach/esophagus wnl cont PPI twice daily biopsies from EGD negative for H Pylori tolerating diet (9) Phlebitis: Plan: right cephalic vein small amount improved/resolving RUE doppler did not show more proximal extension or DVT Cont Eliquis Plan Chronic medical issues: Peripheral neuropathy-continue duloxetine 20 mg daily H/o Breast CA Anxiety-duloxetine VTE Prophylaxis - Eliquis bid PT/OT [facility] at d/c -- tomorrow ? Admission and Anticipated Discharge Date Admission Date: May 15, 2024 Subjective tele overnight -a.fib, rates <100 sat in the chair for a few hours this morning she admits to feeling tired all the time appetite has improved, however moving her bowels some occasional dyspnea Review of Systems Review of Systems: gen - no chills or fevers cv - no chest pain, no orthopnea pulm - occasional dyspnea; no cough GI - no abd pain or N/V Physical Exam Physical Exam: gen - NAD, laying comfortably in bed; looks much better in comparison to the last time I saw her neck - no JVD mouth - MMM heart - irregularly irregular, s1 s2, 2-3/6 holosystolic murmur RUSB, rate <100 lungs - decreased BS bases, CTA b/l otherwise; no rales or wheeze abd - soft ND NT BS+; no HSM; cholecystostomy tube present upper abdomen ext - 1-2+ edema b/l; pulses 2+ b/l feet psych - a/o x 3 vascular - right antecubital region - phlebitis resolved; left hand dorsum IV - clean, site wnl Results & Data Results & Data Vital Signs (Past 12 Hours) Vital Signs Temp Pulse Pulse Resp BP Pulse Ox O2 Del Method 05/29/24 11:51 36.5 C 82 18 121/76 95 Room Air 05/29/24 08:41 36.3 C L 95 H 16 120/79 94 Room Air 05/29/24 07:30 85 05/29/24 02:43 36.7 C 93 H 18 107/70 95 Room Air Laboratory Results Laboratory Results - last 24 hr 05/25/24 05/29/24 09:35 08:39 Sodium 134 L Potassium 4.1 Chloride 101 Carbon Dioxide 27 Anion Gap 6 BUN 16 Creatinine 0.53 L Est Cr Clr Drug Dosing 82.9 Est GFR ( Amer) 103.9 Est GFR (Non-Af Amer) 89.7 BUN/Creatinine Ratio 30.2 H Glucose 160 H Calcium 7.8 L Flow Cytometry Comment See Comment PG Care Time/CCT Total # of Minutes Spent Total Time Spent with Patient: Total time spent is greater than 50% in coordination of care (as documented) at patient's floor/unit and/or counseling patient: Coding Level of Care Code 43426 SUB INP/OBS CARE 2/35MIN Diagnoses Acute cholecystitis K81.0 Acute blood loss anemia D62 GI bleed K92.2 Atrial fibrillation with rapid ventricular response I48.91 Heart failure with preserved ejection fraction I50.30 Aortic stenosis I35.0 Abnormal CBC R79.89 Duodenal ulcer K26.9 Phlebitis I80.9
[2024-05-29] MEDS: FUROSEMIDE INJ 20 MG/2 ML VIAL IV ONE (15:11)
[2024-05-29] MEDS: DIGOXIN 0.125 MG TAB PO SCH (18:09)
[2024-05-30 06:54] LABS: Alanine Aminotransferase 7 U/L (7-52); Albumin Level 2.3 gm/dl (3.4-5.0); Alkaline Phosphatase 93 U/L (34-104); Anion Gap 5 (3-11); Aspartate Aminotransferase 22 U/L (13-39); Blood Urea Nitrogen 17 mg/dl (6-23); Calcium 7.5 mg/dl (8.6-10.3); Carbon Dioxide 26 mmol/L (21-32); Chloride 103 mmol/L (98-107); Creatinine Clr Calc Pharmacy 95.3 ml/min; Est GFR (African American) 108.9 ml/min; Glucose 131 mg/dl (70-99(Fasting)); Potassium 3.9 mmol/L (3.5-5.1); Sodium 134 mmol/L (136-145); Total Protein 4.8 gm/dl (6.0-8.3)
[2024-05-30 07:00] LABS: ALC (manual) 1.43 K/uL (1.2-3.4); ANC (manual) 3.73 K/uL (1.4-6.5); Acanthocytes 1+; Anisocytosis Present; Eosinophils # (manual) 0.22 K/uL (0-0.50); Eosinophils % (manual) 4 %; Hematocrit (blood only) 28.1 % (37.0-47.0); Hemoglobin 9.1 g/dl (12.0-16.0); Hypogranular Neutrophils 1+; Lymphocytes # (manual) 1.43 K/uL (1.2-3.4); Lymphocytes % (manual) 26 %; Mean Corpuscular Hemoglobin 25.4 pg (25.0-34.0); Mean Corpuscular Hgb Conc 32.4 g/dL (32.0-36.0); Mean Corpuscular Volume 78.5 fL (80.0-100.0); Monocytes # (manual) 0.11 K/uL (0.11-0.59); Monocytes % (manual) 2 %; Neutrophils # (manual) 3.73 K/uL (1.40-6.50); Neutrophils % (manual) 68 %; Nucleated RBC # (auto) 0.37 K/uL (0.00-0.12); Nucleated RBC % (auto) 6.7 %; Platelet Count 347 K/uL (130-400); Poikilocytosis Present; Polychromasia 3+; RDW Coefficient of Variation 27.9 % (11.5-14.5); RDW Standard Deviation 76.6 fL (36.4-46.3); Red Blood Count 3.58 M/uL (4.20-5.40); Schistocytes 1+; White Blood Count 5.49 K/ul (4.8-10.8)
[2024-05-30 07:11] LABS: Estimated Average Glucose 140 mg/dl; Hemoglobin A1C 6.5 % (4.5-5.6)
[2024-05-30] MEDS: POTASSIUM CHLORIDE CRTAB 20 MEQ TABCR PO STA (08:54)
[2024-05-30] MEDS: FUROSEMIDE INJ 20 MG/2 ML VIAL IV ONE (09:09)
--- NOTE | 2024-05-30 14:00 | Ultrasound Report ---
BILATERAL LOWER EXTREMITY VENOUS DOPPLER HISTORY: Lower extremity edema. severe edema both legs, eval DVT COMPARISON STUDY: None. FINDINGS: There is normal compressibility, flow, and augmentation within the bilateral lower extremit y deep venous systems. IMPRESSION: No DVT within the right or left lower extremity. ACT 112: Negative or not required by law. Electronically signed by: Elvis Link M.D. 05/30/2024 1:58 PM
[2024-05-30] MEDS: FUROSEMIDE 40 MG/4 ML VIAL IV ONE (16:10)
--- NOTE | 2024-05-30 19:09 | Hospitalist Progress Note ---
Date of Service May 30, 2024 Assessment & Plan (1) Acute cholecystitis: Plan: CT a/p, RUQ u/s, and HIDA scan all suggestive of acute cholecystitis. s/p cholecystostomy tube placement by IR on 05/23/24. s/p full course of IV antibiotic therapy. cholecystitis is resolved. appreciate gen surg & IR assistance. post-d/c will need follow-up with gen surg for definitive management. (2) Acute blood loss anemia: Plan: Hgb 14.6 [December 2023] -> 7.9 on admission and then down further to 7.1, microcytic also with 5% blasts and abnormal peripheral smear s/p EGD 05/18/24 with duodenal ulcers x 3 -- most likely cause of recent abd pain & melena stools Iron studies were actually elevated -- ?falsely elevated in setting of inflammation as per Heme B12/folate/TSH wnl Total bilirubin elevated at 2.3 but LDH is normal and haptoglobin is not low Further, KESHA was negative Cont PPI twice daily She is s/p 1 unit PRBCs during this admission Hb was 9 on 05/27/24, and 9.1 today monitor periodic cbc for stability (3) GI bleed: Plan: upper; likely 2nd to duodenal ulcers Cont PPI Most recent H/H acceptable Back on Eliquis and tolerating without signs/symptoms of ongoing/recurrent bleeding Repeat CBC am (4) Atrial fibrillation with rapid ventricular response: Plan: appreciate cardiology assistance remains on metoprolol tartrate 25mg q6h + digoxin was given PO digoxin load on 05/28 with adequate rates since then cont meto but change 25mg q6h --< 50mg q12h cont digoxin 0.125mg daily dig level at day #5 cont Eliquis bid (5) Heart failure with preserved ejection fraction: Plan: ongoing acute on chronic diastolic congestive heart failure Secondary to a. fib RVR and aortic stenosis along with hypoalbuminemia. ECHO w/ preserved EF 65-70%, no regional WMA's, mild concentric LVH, and now severe aortic stenosis, mild AI, mild pulmonary hypertension with RVSP 44 mmHg, and a large pleural effusion Cont metoprolol tartrate Cont lasix - gave 20mg IV x 1 this am and will follow this with additional dose this afternoon repeat labs am daily standing scale weights (6) Aortic stenosis: Plan: severe address post-d/c [facility] Cardiology to manage (7) Abnormal CBC: Plan: 5% blasts seen on peripheral smear - pathology suspects myelodysplasia, but less likely could be from stress response Flow cytometry returned suspicious for myeloid neoplasm or "evolving AML"; 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 stomach/esophagus wnl cont PPI twice daily biopsies from EGD negative for H Pylori tolerating diet (9) Phlebitis: Plan: right cephalic vein resolved clinically RUE doppler did not show more proximal extension or DVT Cont Eliquis new area of inflammation L hand, dorsum -- warm compresses frequently Plan Chronic medical issues: Peripheral neuropathy-continue duloxetine 20 mg daily H/o Breast CA Anxiety-duloxetine Hypoalbuminemia - try to increase protein in diet VTE Prophylaxis - Eliquis bid Edema - 2nd to CHF, low albumin, etc; pt was off her Eliquis for 7+ days earlier in the stay; check dopplers, r/o DVT cont PT/OT [facility] at d/c Admission and Anticipated Discharge Date Admission Date: May 15, 2024 Subjective tele - a.fib, rates largely 70s and 80s, occasionally 90s patient reports being uncomfortable in the bed & in the recliner chair has occasional dyspnea even at rest continues with LE edema Review of Systems Review of Systems: GI - no abd pain or N/V pulm - no cough CV - no chest pain skin - area of irritated skin L dorsal hand Physical Exam Physical Exam: gen - NAD, sitting in the chair neck - no JVD mouth - MMM heart - irregularly irregular, s1 s2, 2-3/6 holosystolic murmur RUSB, rate <100 lungs - decreased BS bases, CTA b/l apices abd - soft ND NT BS+; no HSM; cholecystostomy tube present upper abdomen; bag with dark bile present ext - 2+ edema b/l - slightly better than yesterday; pulses 2+ b/l feet psych - a/o x 3 vascular - right antecubital region - phlebitis resolved; left hand dorsum - mild inflammation & erythema Results & Data Results & Data Vital Signs (Past 12 Hours) Vital Signs Temp Pulse Pulse Resp BP Pulse Ox O2 Del Method 05/30/24 17:01 98 H 05/30/24 15:43 36.5 C 95 H 16 91/60 L 96 Room Air 05/30/24 13:29 Room Air 05/30/24 13:28 05/30/24 11:11 36.4 C L 84 16 102/67 95 Room Air 05/30/24 07:47 36.4 C L 79 16 105/71 96 Room Air O2 Del Method 05/30/24 17:01 05/30/24 15:43 05/30/24 13:29 05/30/24 13:28 Room Air 05/30/24 11:11 05/30/24 07:47 Laboratory Results Laboratory Results - last 24 hr 05/30/24 05:57 WBC 5.49 RBC 3.58 L Hgb 9.1 L Hct 28.1 L MCV 78.5 L MCH 25.4 MCHC 32.4 RDW Std Deviation 76.6 H RDW Coeff of Karen 27.9 H Plt Count 347 Absolute Nucleated RBC 0.37 H Nucleated RBC % (auto) 6.7 Neutrophils % (Manual) 68 Lymphocytes % (Manual) 26 Monocytes % (Manual) 2 Eosinophils % (Manual) 4 Neutrophils # (Manual) 3.73 Total Absolute Neuts 3.73 Lymphocytes # (Manual) 1.43 Total Abs Lymphocytes 1.43 Monocytes # (Manual) 0.11 Eosinophils # (Manual) 0.22 Hyposegmented Neuts 1+ Hypogranular Neuts 1+ Polychromasia 3+ Poikilocytosis Present Anisocytosis Present Acanthocytes (Spur) 1+ Schistocytes 1+ Sodium 134 L Potassium 3.9 Chloride 103 Carbon Dioxide 26 Anion Gap 5 BUN 17 Creatinine 0.46 L Est Cr Clr Drug Dosing 95.3 Est GFR ( Amer) 108.9 Est GFR (Non-Af Amer) 94.0 BUN/Creatinine Ratio 37.0 H Glucose 131 H Estimat Average Glucose 140 Hemoglobin A1c 6.5 H Calcium 7.5 L Total Bilirubin 1.0 Direct Bilirubin TNP AST 22 ALT 7 Alkaline Phosphatase 93 Total Protein 4.8 L Albumin 2.3 L PG Care Time/CCT Total # of Minutes Spent Total Time Spent with Patient: Total time spent is greater than 50% in coordination of care (as documented) at patient's floor/unit and/or counseling patient: Coding Level of Care Code 28278 SUB INP/OBS CARE MIN Diagnoses Acute cholecystitis K81.0 Acute blood loss anemia D62 GI bleed K92.2 Atrial fibrillation with rapid ventricular response I48.91 Heart failure with preserved ejection fraction I50.30 Aortic stenosis I35.0 Abnormal CBC R79.89 Duodenal ulcer K26.9 Phlebitis I80.9
[2024-05-30] MEDS: METOPROLOL TARTRATE 50 MG TAB PO SCH (20:41)
[2024-05-31 07:35] LABS: BUN Creatinine Ratio 28.6 (10-20); Calcium 7.6 mg/dl (8.6-10.3); Est GFR (African American) 106.6 ml/min; Magnesium 1.6 mg/dl (1.7-2.4); Potassium 4.2 mmol/L (3.5-5.1)
[2024-05-31 08:16] LABS: Echinocytes 2+
[2024-05-31] MEDS: FUROSEMIDE INJ 20 MG/2 ML VIAL IV ONE (08:43)
[2024-05-31] MEDS: MAGNESIUM SULFATE / D5W 1 GM/100 ML BAG IV SCH (08:44)
--- NOTE | 2024-05-31 10:46 | Discharge Summary ---
Discharge Summary Date of Service date of admission - May 15, 2024 date of discharge - May 31, 2024 Principal Dx & Hospital Course #1 = Principal Diagnosis (1) Acute blood loss anemia: Patient presented with 3-4 weeks of melena stools and significant fatigue along with dyspnea & lower extremity edema. Hgb was 14.6 in December 2023. Hgb was 7.9 on admission and then decreased further to 7.1 while here. Anemia was microcytic. On differential she was noted to have blasts. She received 1 unit of PRBCs during the hospitalization. Discharge hemoglobin was 9.1. She was seen in consult by gastroenterology. EGD was completed on 05/18/24. This demonstrated duodenal ulcers x 3 -- most likely cause of recent melena stools. She received IV PPI twice daily while here. At discharge will transition to protonix 40mg BID. Iron studies were actually elevated -- ?falsely elevated in setting of inflammation as per Hematology. B12/folate/TSH wnl/ Total bilirubin elevated at 2.3 but LDH was normal and haptoglobin was not low ruling out hemolysis. KESHA was negative. See below regarding abnormal CBC. (2) Acute cholecystitis: Despite treatment of her duodenal ulcers with PPI Mrs Sofia continued to experience upper abdominal discomfort and poor appetite. CT a/p, RUQ u/s, and HIDA scan were all suggestive of acute cholecystitis. She was seen in consult by general surgery and felt to be a very poor candidate for cholecystectomy. Therefore, she underwent cholecystostomy tube placement by IR on 05/23/24. She also completed a full course of IV antibiotic therapy during the stay for cholecystitis. Her cholecystitis resolved clinically while here. Bilirubin normalized. Abdominal pain resolved. Her cholecystostomy tube is draining well and without issue. Post-d/c she will need follow-up with general surgery for definitive management of the gall bladder. (3) GI bleed: upper; likely 2nd to duodenal ulcers. Cont PPI twice daily. Required 1 unit of PRBCs during the stay. Following such her H/H remained acceptable. Eliquis was held much of the stay and later on resumed. She was tolerating the Eliquis without signs/symptoms of ongoing/recurrent GI bleeding. Discharge hemoglobin was 9.1. (4) Atrial fibrillation with rapid ventricular response: Presented to the hospital with decompensated CHF likely due to uncontrolled a.fib in the setting of mod-severe anemia. She was treated with varying doses of metoprolol and later on digoxin during the stay for rate control. [facility] provided recommendations for her a.fib & CHF. PO digoxin was loaded on 05/28/24 with adequate rates since then. At discharge she will take the following regimen - * metoprolol tartrate 50mg q12h * digoxin 0.125mg daily * Eliquis 5mg BID Recommend a digoxin level within 2-3 days of discharge. (5) Heart failure with preserved ejection fraction: Acute on chronic diastolic congestive heart failure. Presented to [facility] with decompensated CHF. This was secondary to a. fib with RVR and aortic stenosis in the setting of mod- severe anemia. Significant hypoalbuminemia also contributed to her volume overload. ECHO this admission w/ preserved EF 65-70%, no regional WMA's, mild concentric LVH, severe aortic stenosis, mild AI, mild pulmonary hypertension with RVSP 44 mmHg, and a large pleural effusion. She received IV/PO lasix throughout the stay. Metoprolol was adjusted for adequate a.fib rate control. At discharge advise lasix 20mg daily along with K/Mag supplementation. It is possible she may need a larger lasix dose in the future. Advise f/u with either Emerita ADAMS in the CHF clinic at [facility] or Dr Travon Jarquin, also [facility] Cardiology. Daily weights advised. (6) Aortic stenosis: severe address post-d/c --> [facility] to manage (7) Abnormal CBC: 5% blasts seen on peripheral smear - pathology suspects myelodysplasia. Flow cytometry returned suspicious for myeloid neoplasm or "evolving AML"; heme/onc most concerned about MDS. s/p bone marrow bx this admission; results still pending at time of discharge. CBC on 05/30/24 showed stable cell lines. Advise a repeat CBC in a few days post-discharge for stability. She will need to follow-up with Dr Meghana Hackett at the [facility] shortly after discharge to discuss her bone marrow biopsy results and to formulate a treatment plan. I suspect that her bone marrow disorder is the biggest contributor of her weakness & fatigue. (8) Duodenal ulcer: x 3 -- as seen on EGD 05/18/24 certainly contributed to acute blood loss anemia, abd pain, etc. stomach/esophagus wnl on EGD cont PPI twice daily biopsies from EGD negative for H Pylori tolerating diet prior to discharge (9) Phlebitis: RIGHT cephalic vein as confirmed on doppler. Improved while here with warm compresses & time. RUE doppler did not show more proximal extension of the cephalic vein phlebitis or DVT. just prior to discharge she had a new area of inflammation on the left hand (dorsum) from a prior IV. advise warm compresses frequently to both areas as needed. Eliquis for her a.fib will help prevent worsening of her phlebitis. (10) Trochanteric bursitis, right hip: had had pain at home prior to admission. then had pain early in the stay. pain gradually resolved while here. imaging actually showed that she indeed had bursal swelling over the right lateral hip c/w trochanteric bursitis. ice prn moving forward. work on improving her gait at rehab. (11) Diet-controlled type 2 diabetes mellitus: hemoglobin a1c this admission was 6.5% she was a pre-diabetic in 2021 with a1c then of 5.9% suspect this can be controlled with diet alone will need periodic a1c checks as outpatient with her PCP Plan Other acute issues - * Hypoalbuminemia - presenting albumin was 3.3, falling to 2.3 by discharge due to prolonged periods of NPO status in the face of GI bleeding, acute cholecystitis, etc. Consider Boost or Ensure and try to increase protein in diet. * Edema - 2nd to CHF, low albumin, etc; pt was off her Eliquis for 7+ days earlier in the stay; checked dopplers, NO DVT found. Cont lasix 20mg daily. * VTE Prophylaxis - Eliquis bid. Chronic medical issues: Peripheral neuropathy - continue duloxetine 20 mg daily H/o Breast CA Anxiety - duloxetine Seen by PT/OT while here - rehab advised; patient transferring to [facility] at discharge Admission HPI Per Admitting Provider Gail Sofia is an 78 year old female with history atrial fibrillation and gastric ulcer who presents to the ER sent in by PCPs office with increased shortness of breath, rapid atrial fibrillation and edema in bilateral lower extremities. Initial symptoms started 3 months ago with cough. 1 month ago she started feeling fatigued in the afternoon that she had to go to sleep. Reports 10 pounds weight loss until the last week when she is getting the 10 pounds back. Generalized weakness, appetite decreased, increasing shortness of breath on exertion and leg swelling especially over the last 3 weeks. 3 weeks ago she took Advil due to right hip pain (4 pills over 3 days). The right hip pain improved after using a cane. Since then she has also had epigastric pressure (denies pain) with occasional vomiting, without radiation, dysphagia or odynophagia. Associated black tarry stool for the last 3 to 4 weeks. She googled her symptoms and thought that she had a stomach ulcer therefore stopped taking Eliquis 2-3 weeks ago. She also stopped metoprolol around the same time as she felt she was unable to get to the medications in her house. Last EGD and colonoscopy in 2011 - performed by Светлана, she reports gastric ulcer was found at this time when she was on significant amounts of NSAIDs. Discharge Exam gen - NAD, obese, comfortable neck - no JVD mouth - MMM heart - irregularly irregular, s1 s2, 2-3/6 holosystolic murmur RUSB, rate <100 lungs - decreased BS bases, CTA b/l apices abd - soft ND NT BS+; no HSM; cholecystostomy tube present upper abdomen; bag with dark bile present ext - 2+ edema b/l; pulses 2+ b/l feet psych - a/o x 3 vascular - right antecubital region - phlebitis resolved; left hand dorsum - mild inflammation & erythema along a small portion of vein from prior IV site skin - pallor Discharge Plan Discharge Items Patient Disposition: Transfer Inpatient Rehab Fac Reason For Visit: ACUTE BLOOD LOSS ANEMIA, ACUTE CHF Discharge Diagnosis: 1. acute blood loss anemia due to presumed upper GI bleeding from duodenal ulcers; discharge hemoglobin 9.1 2. duodenal ulcers 3. abnormal CBC - myelodysplastic syndrome ("MDS") suspected; bone marrow biopsy results pending 4. acute/chronic diastolic CHF 5. severe aortic stenosis 6. atrial fibrillation 7. pleural effusions due to #4 8. hypoalbuminemia 9. cephalic vein superficial thrombophlebitis right arm - improved 10. IV infiltrate left hand 11. type 2 diabetes, hemoglobin a1c 6.5% - diet control recommended for now 12. acute cholecystitis s/p cholecystostomy tube placement 13. peripheral neuropathy 14. right hip trochanteric bursitis - improved Activity: Resume your previous activity Non-emergency contact: Primary Care Provider, Surgeon, Specialist and Manager Cardiovascular Call non-emergency contact if: you have any medication questions and your symptoms worsen Follow-up/Referrals: Abelardo Copeland MD [Primary Care Provider] - Karla Salazar PA-C [Physician Project Engineer] - 06/05/24 2:00 pm (1 week; f/u of CHF, aortic stenosis, a.fib) Florentino Garcia DO [Physician] - (1-2 weeks to discuss timing of cholecystectomy and management of cholecystostomy tube ) Meghana Hackett MD [Physician] - (1-2 weeks; f/u of suspected myelodysplastic syndrome ) Diet: Carb Consistent or DM2, Heart Healthy and Low Fat Fluids: 1800ml (7 cups) Addtl Attending Provider Instructions: 1. CBC, BMP, Magnesium, and digoxin level - 06/02/24 (Morning blood draw) - results to medical record librarian 2. Check BSGs each morning and at bedtime 3. Daily morning standing scale weights; notify medical record librarian if any weight gain of more than 2-3 pounds over 1-2 days 4. Warm compresses to left hand dorsum next 2-3 days - as desired by patient 5. Ice to right hip as needed/as desired by patient for bursitis pain 6. 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 Drain cholecystostomy tube daily and as needed; please quantify daily output Pending Studies at Discharge: Yes Studies:: bone marrow biopsy results Stand-Alone Forms: My [facility] Skilled Items Patient informed of condition?: Yes DNR: No Discharge Level of Care: Acute rehab Communicable Disease: No Discharge Prognosis: Stable Lines: None Urinary Catheter: No Medications and DC Order Prescriptions: New sennosides [Senokot] 8.6 mg Tablet 17.2 mg PO QAM Qty: 30 0RF polyethylene glycol 3350 [Miralax] 17 gram Powder In Packet 17 g PO DAILY Qty: 30 0RF pantoprazole 40 mg Tablet,Delayed Release (Dr/Ec) 40 mg PO BID Qty: 60 1RF digoxin [Digitek] 125 mcg (0.125 mg) Tablet 0.125 mg PO DAILY@1600 Qty: 30 1RF magnesium oxide 400 mg magnesium tablet 400 mg PO DAILY Qty: 30 0RF furosemide [Lasix] 20 mg tablet 20 mg PO QAM Qty: 30 1RF potassium chloride 10 mEq tablet extended release 10 meq PO DAILY Qty: 30 1RF Continued calcium carbonate [Tums] 200 mg calcium (500 mg) tablet,chewable 200 mg PO BID PRN (Reason: HEARTBURN/INDIGESTION) Qty: 0 0RF albuterol sulfate 90 mcg/actuation Hfa Aerosol Inhaler 2 puff INHALATION Q4H PRN (Reason: WHEEZING, COUGH, SHORT OF BREATH) Qty: 0 0RF prkzzlbfgsub-roehitfa-isadxx Tablet 1 tab PO DAILY Qty: 0 0RF duloxetine 20 mg Capsule,Delayed Release(Dr/Ec) 20 mg PO QAM Qty: 0 0RF cholecalciferol (vitamin D3) 25 mcg (1,000 unit) tablet 1,000 unit PO DAILY Qty: 0 0RF Prolia 60 mg/mL syringe 60 mg subcut Q6MO Qty: 0 0RF alpha lipoic acid 600 mg Capsule 600 mg PO DAILY Qty: 0 0RF Eliquis 5 mg tablet 5 mg PO BID Qty: 60 5RF Changed metoprolol tartrate 100 mg tablet 50 mg PO BID Qty: 0 0RF acetaminophen [Tylenol Extra Strength] 500 mg Tablet 1,000 mg PO Q6H PRN (Reason: Pain) Qty: 1 0RF Discharge Orders: Discharge Order (Routine); Ordered 05/31/24 Ordered By: Robert Phelan/Other Patient Handouts: A1C, Understanding Type 2 Diabetes Admission Data Admit Date/Time: 05/15/24 17:51 Attending Provider: Robert Cooper Admit Provider: Robert Ramírez Primary Care Provider: Abelardo Copeland Other Providers: [facility]; Joy Gates [facility]; Robert Ramírez; Caden De León Jr; Trenton Jarquin; Salo Lowery; Florentino Garcia; [facility] Hospital Stay Data Consultations Gastroenterology Cardiology Hematology General Surgery Interventional Radiology PT, OT Procedures Performed * Operation Date: 05/18/24 16:30 -- EGD Biopsy Cytology - Shruthi Hager MD * IR placement of cholecystostomy tube - 05/23/24 * PRBCs x 1 unit * Echocardiogram - Diagnostic Imagining Performed Chest X-Ray 05/15/24 14:14 XR chest 1V portable HISTORY: Chest pain, nonspecific COMPARISON: None. FINDINGS: The heart is enlarged. No pneumothorax. Moderate bilateral pleural effusions most pronounced on the left. There are patchy bibasilar densities. There is right greater than left perihilar interstitial/vascular thickening. This suggests mild asymmetric pulmonary edema. No acute fractures. IMPRESSION: 1. Cardiomegaly with mild interstitial pulmonary edema and moderate bilateral pleural effusions. 2. Patchy bibasilar densities are nonspecific but may represent atelectasis from the pleural effusions. ACT 112: Negative or not required by law. Electronically signed by: Elvis Link M.D. 05/15/2024 4:10 PM Chest CTA 05/15/24 14:53 CT angio chest PE protocol CLINICAL HISTORY: PE; tachycardia and SOB, off anticoag for 1 week TECHNIQUE: Multidetector row helical CT of the chest was performed with angiographic protocol. Coronal and sagittal reformations were obtained. Coronal and sagittal MIPS were obtained from the axial data set and were submitted for review. Automated dose lowering techniques and/or adjustment according to patient size were utilized for this exam. CT DOSE: 536.83 mGy.cm Comparison: Comparison is made to CT chest 12/13/2010 FINDINGS: Lungs and pleura: Large bilateral pleural effusions are seen with underlying atelectasis. Heart and pericardium: Cardiomegaly is seen with biatrial enlargement. Vessels: No evidence of pulmonary embolism. Mediastinum and nalini: Subcentimeter lymph nodes are seen. Chest wall and lower neck: Postsurgical changes are seen in the right breast. Abdomen: Unremarkable. Bones: Degenerative changes in the thoracic spine. IMPRESSION: 1. No pulmonary embolus. 2. Large bilateral pleural effusions. ACT 112: Negative or not required by law. Electronically signed by: Travis Tinsley M.D. 05/15/2024 4:25 PM Venous Doppler Study 05/16/24 00:00 LEFT LOWER EXTREMITY VENOUS DOPPLER HISTORY: Left leg swelling. ?DVT COMPARISON STUDY: None. FINDINGS: There is normal compressibility, flow, and augmentation within the left lower extremity deep venous system. IMPRESSION: No DVT within the left lower extremity. ACT 112: Negative or not required by law. Electronically signed by: Elvis Link M.D. 05/16/2024 10:24 AM Venous Doppler Study 05/19/24 16:51 RIGHT UPPER EXTREMITY VENOUS DOPPLER HISTORY: phlebitis, right antecubital region; eval DVT COMPARISON STUDY: None. FINDINGS: The right internal jugular vein is patent. There is normal flow within the right subclavian vein. There is normal flow and compressibility within the right axillary, basilic, brachial, radial, and ulnar veins. Occlusive thrombus within the cephalic pain branch of the cephalic vein at the antecubital fossa. This measures approximately 2 cm in length.. IMPRESSION: 1. No DVT within the right upper extremity. 2. Superficial thrombus within the right cephalic vein. ACT 112: Negative or not required by law. Electronically signed by: Elvis Link M.D. 05/20/2024 8:01 AM Abdomen/Pelvis CT 05/20/24 15:[address] WITH IV CONTRAST CT DOSE: 1166.96 mGy.cm HISTORY: upper abdominal pain, recent duodenal ulcers TECHNIQUE: Multiaxial CT images of the abdomen and pelvis were performed following the use of intravenous contrast. A dose lowering technique was utilized adhering to the principles of ALARA. COMPARISON STUDY: Chest CTA 05/15/2024. FINDINGS: Moderate to large bilateral pleural effusions with compressive atelectasis of the left lower lobe and partial compressive atelectasis of the right lower lobe are not significant changed. No pneumoperitoneum. No pneumatosis. Posterior decompression noted within the lower lumbar spine. No acute fractures. Moderate body wall edema. There is a 5.8 cm fluid collection lateral to the right greater trochanter. This favors a trochanteric bursitis. The pancreas, spleen, and kidneys enhance normally. No hydronephrosis. Possible 3 mm stone within the left kidney on image 142. No ureteral stones. No hydronephrosis. The main portal vein is patent. Mild calcified plaque within the normal caliber abdominal aorta. Mild nodular thickening of the adrenal glands. Mild thickening of the gallbladder wall with trace pericholecystic fluid. There is heterogeneous enhancement within the adjacent liver. Therefore, this could represent an acute cholecystitis or adjacent hepatic disease. Subtle hyperdense foci within the left posterior bladder could be due to small bladder calculi. No bladder wall thickening. The uterus and bilateral adnexa are unremarkable. Mild presacral edema is noted. Colonic diverticulosis. No evidence for acute diverticulitis. No bowel wall thickening or obstruction. Normal appendix. IMPRESSION: 1. Moderate to large bilateral pleural effusions again noted. 2. No bowel wall thickening or obstruction. 3. Colonic diverticulosis. No evidence for acute diverticulitis. 4. Moderate body wall edema. 5. Left-sided nephrolithiasis. No ureteral stones. No hydronephrosis. There may be a few punctate bladder calculi noted. 6. Mild thickening of the gallbladder wall with trace pericholecystic fluid. There is heterogeneous enhancement within the adjacent liver. Therefore, this could represent an acute cholecystitis or adjacent hepatocellular disease. Clinical correlation recommended. 7. Additional findings as described above. ACT 112: Negative or not required by law. Electronically signed by: Elvis Link M.D. 05/20/2024 7:01 PM Gallbladder Ultrasound 05/20/24 19:06 Exam(s): US GALLBLADDER EXAM: US Abdomen Limited, Gallbladder CLINICAL HISTORY: Reason for exam: ?cholecystitis?. TECHNIQUE: Real-time ultrasound of the right upper quadrant with image documentation. COMPARISON: No relevant prior studies available. FINDINGS: Liver: The liver size is normal measuring 14.5 cm. Possible mild fatty infiltration. No focal liver lesion is seen. The hepatic veins are patent. The portal vein is patent with normal hepatopetal flow. Gallbladder: The gallbladder is fully distended but nondilated and approximately 60% filled with sludge layering dependently. No shadowing stones are identified. The gallbladder wall is slightly thickened measuring 3-4 mm. There is a trace amount of surrounding fluid identified. Common bile duct: The common bile duct is nondilated measuring 4 mm. Pancreas: The pancreas is obscured by bowel gas. Inferior vena cava: The IVC is unremarkable. Pleural space: There is a small to moderate right pleural effusion. IMPRESSION: 1. There is a small to moderate right pleural effusion. 2. The gallbladder is fully distended but nondilated and approximately 60% filled with sludge layering dependently. No shadowing stones are identified. The gallbladder wall is slightly thickened measuring 3-4 mm. There is a trace amount of pericholecystic fluid. Sonographic Chun sign cannot be assessed due to recent pain medication. Electronically signed by: Chinmay Rocha MD 05/21/24 02:09 AM Hepatobiliary Scan Nuclear Medicine 05/21/24 07:48 NUCLEAR HEPATOBILIARY SCAN CLINICAL HISTORY: Upper abdominal pain. COMPARISON STUDY: Abdominal CT and ultrasound dated 05/20/2024. TECHNIQUE: Dynamic images of the liver and anterior abdomen were obtained every 5 minutes for a total of 60 minutes following the IV administration of 5.5 mCi of technetium 99m Mebrofenin. The gallbladder isn't visualized at 60 minutes. 2 mg of IV morphine was administered, with additional imaging performed every 5 minutes for an additional 30 minutes. FINDINGS: The hepatobiliary scan shows prompt and homogeneous hepatic uptake. There is visualized activity within the intra and extrahepatic biliary tree at 10 minutes. There is normal biliary to bowel transit, with small bowel visualized by 15 minutes. The gallbladder was not visualized at 60 minutes. The gallbladder was also not seen at 90 minutes following morphine administration. IMPRESSION: Scintigraphic findings are consistent with acute cholecystitis. ACT 112: Negative or not required by law. Electronically signed by: Robert Mcallister M.D. 05/21/2024 2:07 PM Cholangiopancreatography MRI 05/21/24 15:08 Exam(s): MRI MRCP EXAM: MR Abdomen Without Intravenous Contrast, MRCP Protocol CLINICAL HISTORY: Reason for exam: eval elevated LFTs. TECHNIQUE: Multiplanar magnetic resonance images of the abdomen without intravenous contrast using MRCP protocol. Mild to moderate motion artifact. COMPARISON: Gallbladder ultrasound and CT abdomen pelvis 05/20/24. FINDINGS: Lung bases: Stable large bilateral pleural effusions and underlying consolidation. Bile ducts: Severely distended with wall thickening/pericholecystic fluid, nonspecific, cannot rule out acute, acalculus cholecystitis. Gallbladder: Moderate distention and debris/sludge, in keeping with ultrasound. No stones. Liver: Fatty. Pancreas: Unremarkable. No ductal dilation. Spleen: Unremarkable. No splenomegaly. Adrenals: Unremarkable. No mass. Kidneys and ureters: Unremarkable. No hydronephrosis. Other: Stable anasarca. IMPRESSION: 1. Severely distended with pericholecystic fluid and sludge, nonspecific, cannot rule out acute, acalculus cholecystitis. 2. No cholelithiasis or choledocholithiasis. 3. Stable bilateral pleural effusions and infiltrates. Electronically signed by: Aleta Pinto M.D. 05/22/24 03:23 AM Catheter Placement-Ultrasound 05/23/24 13:00 Ultrasound-guided cholecystostomy tube placement INDICATION: Acute cholecystitis PROCEDURE: Procedure and risks were explained. Informed consent was obtained. A final timeout was completed. The abdomen was prepped and draped in sterile fashion. 1% lidocaine was utilized for skin anesthesia. Utilizing ultrasound guidance, an 18-gauge Chiba needle was advanced through a small anterior wedge of liver into the gallbladder. Ultrasound images were obtained. A 0.035 Amplatz wire was introduced through the entry needle and exchanged for an 8 [place] locking pigtail catheter. Approximately 20 mL of thick gallbladder fluid was removed and sent to lab for analysis. The catheter was sutured to the skin with 3-0 Prolene and placed to gravity bag drainage. The patient tolerated the procedure well. Vital signs will be monitored on the floor. IMPRESSION: Cholecystostomy tube placement as above. Performed, dictated, and signed by Zhang Allen PA-C; to be co-signed by Dr. Travis Tinsley. Electronically signed by: Travis Tinsley M.D. 05/23/2024 9:21 PM Bone Marrow Biopsy w/ CT 05/25/24 09:00 CT-guided bone marrow biopsy INDICATION: Anemia PROCEDURE: Procedure and risks were explained. Informed consent was obtained. A final timeout was completed. The patient was placed in a lateral decubitus position on the CT exam table. The right gluteal region was prepped and draped in sterile fashion. 1% lidocaine was utilized for skin anesthesia. The patient received 1 g Tylenol IV. Utilizing CT guidance, an 11-gauge bone biopsy needle was advanced into the right iliac bone. Multiple aspirates and one bone core was obtained and given to the lab for review. The needle was removed and Band-Aid applied. The patient tolerated the procedure well. Vital signs will be monitored on the floor. IMPRESSION: Bone marrow biopsy as above. Performed, dictated, and signed by Zhang Allen PA-C; to be co-signed by Dr. Zuhair Chowdhury. Electronically signed by: Zuhair Chowdhury M.D. 05/25/2024 2:48 PM Venous Doppler Study 05/30/24 11:59 BILATERAL LOWER EXTREMITY VENOUS DOPPLER HISTORY: Lower extremity edema. severe edema both legs, eval DVT COMPARISON STUDY: None. FINDINGS: There is normal compressibility, flow, and augmentation within the bilateral lower extremity deep venous systems. IMPRESSION: No DVT within the right or left lower extremity. ACT 112: Negative or not required by law. Electronically signed by: Elvis Link M.D. 05/30/2024 1:58 PM Pending Results Patient Have Any Pending Studies at Discharge: Yes Discharge Instructions Given to Patient (Per Discharging Provider) 1. CBC, BMP, Magnesium, and digoxin level - 06/02/24 (Morning blood draw) - results to medical record librarian 2. Check BSGs each morning and at bedtime 3. Daily morning standing scale weights; notify medical record librarian if any weight gain of more than 2-3 pounds over 1-2 days 4. Warm compresses to left hand dorsum next 2-3 days - as desired by patient 5. Ice to right hip as needed/as desired by patient for bursitis pain 6. 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 Drain cholecystostomy tube daily and as needed; please quantify daily output Total Time Total Time Spent Total Time Spent (In Minutes): 50 Coding Level of Care Code 26406 INP/OBS DISCH >30 MIN Diagnoses Acute blood loss anemia D62 Acute cholecystitis K81.0 GI bleed K92.2 Atrial fibrillation with rapid ventricular response I48.91 Heart failure with preserved ejection fraction I50.30 Aortic stenosis I35.0 Abnormal CBC R79.89 Duodenal ulcer K26.9 Phlebitis I80.9 Trochanteric bursitis, right hip M70.61 Diet-controlled type 2 diabetes mellitus E11.9
== END 2024-05-31 14:13 | DRG 291 ==
LOC: ED 14:06 → SUATTDRO 17:51 → EDINP 17:51 → 2E 19:30 → 2N 05-23 15:22